=== PATIENT | male | born 1955 | race Caucasian/White ===

== ENCOUNTER 2021-11-14 13:11 | Emergency (ER) | payer MEDICARE ==
[2021-11-14] MEDS ORDERED: DEXAMETHASONE SOD PHOSPHATE 10 MG/ML 1 ML VIAL IM STA (13:57)
[2021-11-14] MEDS ORDERED: ORPHENADRINE 30 MG/ML 2 ML VIAL IM STA (13:57)
--- NOTE | 2021-11-14 14:04 | ED ---
Extremity Problem HPI - General Chief complaint: Extremity Problem,Nontraumatic Stated complaint: Body aches,hist of AFib Time Seen by Provider: 11/14/21 13:50 Source: patient, RN notes reviewed, old records reviewed Mode of arrival: ambulatory - History of Present Illness Initial comments: This is a 66-year-old male presents to the emergency room with complaints of neck pain radiating down both of his arms to his fingers and low back pain radiating down his right leg. Patient states he does have a history of this and has been seeing a chiropractor, last visit last week. He states just moved here from [place]. He does have a history also of atrial fibrillation but does not take blood thinner only takes metoprolol. Denies any chest pain or difficulty in breathing. No fevers, no nausea vomiting or diarrhea. No previous surgical history. -: days(s) (1) Severity scale (1-10): 7 Quality: constant Associated Symptoms: denies other symptoms - Related Data Previous Rx's Medication Instructions Recorded predniSONE 50 mg PO DAILY #5 tab 11/14/21 Allergies Allergy/AdvReac Type Severity Reaction Status Date / Time No Known Allergies Allergy Verified 11/14/21 13:32 Review of Systems ROS Statement: Those systems with pertinent positive or pertinent negative responses have been documented in the HPI. ROS Other: All systems not noted in ROS Statement are negative. Past Medical History Additional Past Medical History / Comment(s): atrial fib History of Any Multi-Drug Resistant Organisms: None Reported Additional Past Surgical History / Comment(s): cardiac ablation Past Psychological History: No Psychological Hx Reported Smoking Status: Never smoker Past Alcohol Use History: None Reported Past Drug Use History: None Reported General Exam Limitations: no limitations General appearance: alert, in no apparent distress Head exam: Present: atraumatic Eye exam: Present: normal appearance. Absent: scleral icterus, conjunctival injection, periorbital swelling, periorbital tenderness Neck exam: Present: normal inspection, tenderness (Bilateral trapezius), full ROM. Absent: meningismus, lymphadenopathy, thyromegaly Respiratory exam: Present: normal lung sounds bilaterally. Absent: respiratory distress, wheezes, rales, rhonchi, stridor, chest wall tenderness, accessory muscle use Cardiovascular Exam: Present: regular rate, normal rhythm GI/Abdominal exam: Present: soft Extremities exam: Present: normal capillary refill. Absent: tenderness, pedal edema, joint swelling, calf tenderness Back exam: Present: full ROM, paraspinal tenderness (LS spine). Absent: vertebral tenderness, rash noted Expanded Back exam: Positive Straight Leg Raise: Right Neurological exam: Present: alert, oriented X3, CN II-XII intact, normal gait Psychiatric exam: Present: normal affect, normal mood Skin exam: Present: warm, dry, normal color. Absent: cyanosis, diaphoretic, petechiae, pallor Course Vital Signs 11/14/21 11/14/21 13:28 16:01 Temperature 98 F 97.7 F Pulse Rate 80 74 Respiratory 16 18 Rate Blood Pressure 142/84 128/92 O2 Sat by Pulse 96 95 Oximetry Medical Decision Making - Medical Decision Making Patient presents with trapezius neck pain and tingling down both arms since waking up this morning. Also complaining of low back pain radiating down his right leg. Patient states he does have a history of chronic back problems and has been seeing a chiropractor. She denies any trauma. States he has had this back pain in the past, however today it is more severe. Patient has full range of motion. No evidence of trauma. Patient has a history of A. fib. EKG shows sinus rhythm with ventricular rate of 70. States he sees Dr. José in [place] and was put on metoprolol but it was decided not to put him on blood thinners. States he also had a recent stress test. EKG does show T-wave inversions in multiple leads. 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 X-ray of the LS spine shows no evidence of fracture. There is mild multilevel disc Degeneration changes throughout the spine. X-ray C-spine shows no fracture dislocation. Mild degenerative disc disease resulting in multilevel neural foraminal stenosis bilaterally. He denies any headaches, nausea vomiting diarrhea or fevers. No bowel or bladder incontinence. No fevers. No concerning red flags. He has full range of motion and is ambulatory with a steady gait. No focal neurological deficits. He was given Decadron and Norflex for pain relief. Patient's symptoms are consistent with cervical and lumbar radiculopathy. He was given a prescription for prednisone and directed to take it as prescribed along with Tylenol and [id number] topical pain relievers. He was advised not to take ibuprofen while taking prednisone as it may cause upset stomach. Strict return parameters were discussed instructed to return with any focal neurological deficits. He is agreeable to this plan of care. Vital Signs are stable. Case discussed with Dr. Sapp. - EKG Data EKG shows normal: sinus rhythm (Ventricular rate 70, CO interval 0.141, QRS 0.90, QTC 0.437; normal axis; no old to compare) Disposition Clinical Impression: Neck pain, Low back pain, Radiculopathy affecting upper extremity Disposition: HOME SELF-CARE Condition: Good Instructions (If sedation given, give patient instructions): Cervical Radiculopathy (ED), Back Pain (ED), Lower Back Exercises (ED), Neck Pain (ED) Additional Instructions: Start prednisone tomorrow and take as prescribed for the next 5 days along with Tylenol for pain relief. You can also use topical pain relievers like icy hot or bengay. Do not take Motrin or ibuprofen-type products while taking the prednisone as it m,ay upset your stomach. Once finished with the prednisone, you can take Tylenol and Motrin at the same time to help maintain pain relief. Follow-up a primary care doctor next week and return to the emergency room with any new or concerning symptoms. Prescriptions: predniSONE 50 mg PO DAILY #5 tab Is patient prescribed a controlled substance at d/c from ED?: No Referrals: None,Stated [Primary Care Provider] - 1-2 days Time of Disposition: 15:56
--- NOTE | 2021-11-14 15:16 | XR ---
EXAMINATION TYPE: XR cervical spine comp DATE OF EXAM: 11/14/2021 2:52 PM INDICATION: Patient age:Male; 66 years old; Reason for study: pain; PHH. COMPARISON: None TECHNIQUE: The cervical spine was imaged in 4 projections. Frontal, lateral, odontoid and bilateral o blique. FINDINGS: The osseous structures show normal alignment without evidence of an acute fracture. There are osteoph ytes noted throughout the cervical spine on the anterior and lateral aspects of the vertebral bodies. The intervertebral disk spaces are preserved. Pedicles are intact. Soft tissues are within normal limits. The odontoid appears intact. Bilateral neural foraminal stenosis noted bilaterally secondary to facet joint and uncovertebral joint arthropathy. IMPRESSION: 1. No fracture or dislocation. 2. Mild degenerative disc disease changes of the cervical spine resulting in multilevel neural forami nal stenosis bilaterally.
--- NOTE | 2021-11-14 15:17 | XR ---
EXAMINATION TYPE: XR lumbar spine 2 or 3V DATE OF EXAM: 11/14/2021 2:52 PM INDICATION: Patient age:Male; 66 years old; Reason for study: pain; COMPARISON: None TECHNIQUE: Frontal, lateral and coned in L5-S1 lateral views of the spine. FINDINGS: No evidence of any acute osseous pathology. No evidence of loss of vertebral body height i s seen. There is straightening of the alignment of the lumbar vertebral bodies. Mild scattered disc s pace narrowing. Multilevel marginal osteophyte formation throughout the visualized spine. There is fa cet joint arthropathy throughout the spine. Scattered at least mild neural foraminal stenosis. IMPRESSION: No evidence of fracture. Mild multilevel disc degeneration changes seen throughout the spine.
[2021-11-14 16:05] VITALS: BP 128/92; PULSE 74; RESP 18; TEMP 97.7
== END 2021-11-14 16:05 | disposition home or self-care (01) ==
LOC: EC 13:11
DX: M54.16 Radiculopathy, lumbar region (principal); M54.2 Cervicalgia; I48.91 Unspecified atrial fibrillation
CPT/HCPCS: 99283 ×2; 96372 ×2; 93005; 72050; 72100; J1100; J2360

== ENCOUNTER 2022-01-07 02:53 | Emergency (ER) | payer MEDICARE ==
[2022-01-07 02:58] VITALS: TEMP 97.3
[2022-01-07] MEDS ORDERED: SODIUM CHLORIDE 0.9% 1,000 ML IV STA (03:05)
[2022-01-07] MEDS ORDERED: DIGOXIN 250 MCG/ML 2 ML AMP IVP STA (03:06)
--- NOTE | 2022-01-07 03:08 | ED ---
Arrhythmia/Palpitations HPI - General Chief Complaint: Arrhythmia/Palpitations Stated Complaint: A-Fib Time Seen by Provider: 01/07/22 03:05 Source: patient, RN notes reviewed, old records reviewed Mode of arrival: wheelchair Limitations: no limitations - History of Present Illness Initial Comments: This is a 66-year-old male to the emergency department for evaluation. Patient Dese for evaluation of H a fibrillation with RVR palpitations, history of the same. Patient has had cardioversion in the past. Patient has maybe some mild chest pain currently. Lightheadedness and dizziness no significant shortness of breath heart has been significantly high. No change in medications he's felt a little off lately but overall generally feeling well. No nausea vomiting diarrhea or fevers MD Complaint: rapid heart beat, "heart racing", "skipped beats", palpitations, irregular heart beat, atrial fibrillation -: hour(s) Context: occurred during rest Arrhythmia History: atrial fibrillation Associated Symptoms: chest pain, shortness of breath, anxiety Treatments Prior to Arrival: other (0) - Related Data Previous Rx's Medication Instructions Recorded predniSONE 50 mg PO DAILY #5 tab 11/14/21 Allergies Allergy/AdvReac Type Severity Reaction Status Date / Time No Known Allergies Allergy Verified 01/07/22 02:55 Review of Systems ROS Statement: Those systems with pertinent positive or pertinent negative responses have been documented in the HPI. ROS Other: All systems not noted in ROS Statement are negative. Past Medical History Past Medical History: Atrial Fibrillation Additional Past Medical History / Comment(s): atrial fib, neck pain History of Any Multi-Drug Resistant Organisms: None Reported Past Surgical History: Cardiac Ablation, Orthopedic Surgery Additional Past Surgical History / Comment(s): cardiac ablation Past Psychological History: No Psychological Hx Reported Smoking Status: Never smoker Past Alcohol Use History: None Reported Past Drug Use History: None Reported General Exam Limitations: no limitations General appearance: alert, in no apparent distress, anxious Head exam: Present: atraumatic, normocephalic, normal inspection Eye exam: Present: normal appearance, PERRL, EOMI. Absent: scleral icterus, conjunctival injection, periorbital swelling ENT exam: Present: normal exam, mucous membranes moist Neck exam: Present: normal inspection. Absent: tenderness, meningismus, lymphadenopathy Respiratory exam: Present: normal lung sounds bilaterally. Absent: respiratory distress, wheezes, rales, rhonchi, stridor Cardiovascular Exam: Present: tachycardia, irregular rhythm, normal heart sounds. Absent: systolic murmur, diastolic murmur, rubs, gallop, clicks GI/Abdominal exam: Present: soft, normal bowel sounds. Absent: distended, tenderness, guarding, rebound, rigid Extremities exam: Present: normal inspection, full ROM, normal capillary refill. Absent: tenderness, pedal edema, joint swelling, calf tenderness Back exam: Present: normal inspection Neurological exam: Present: alert, oriented X3, CN II-XII intact Psychiatric exam: Present: normal affect, normal mood Skin exam: Present: warm, dry, intact, normal color. Absent: rash Course Vital Signs 01/07/22 01/07/22 01/07/22 02:55 03:02 03:22 Temperature 97.3 F L Pulse Rate 73 160 H 102 H Respiratory 18 Rate Blood Pressure 85/58 103/74 O2 Sat by Pulse 96 Oximetry 01/07/22 01/07/22 01/07/22 03:31 03:43 03:45 Temperature Pulse Rate 102 H 135 H Respiratory 16 Rate Blood Pressure 99/89 116/88 O2 Sat by Pulse 97 Oximetry 01/07/22 03:58 Temperature Pulse Rate 66 Respiratory Rate Blood Pressure O2 Sat by Pulse Oximetry - Reevaluation(s) Reevaluation #1: 01/07/22 04:14 Medical records reviewed Reevaluation #2: 01/07/22 04:14 patient symptoms improved heart rate is now normal sinus rhythm Reevaluation #3: 01/07/22 04:14 Patient informed results and questions answered EKG Findings - EKG Comments: EKG Findings:: EKG Shows A. fib with RVR 152 QRS 146.31 Medical Decision Making - Medical Decision Making 66-year-old male to the emergency department for evaluation he presents today nature fibrillation with RVR 160s. Patient was given loading dose of digoxin at half strength. Patient had complete covert in normal sinus rhythm in the 60s. Patient feels well and can be discharged home - Lab Data Result diagrams: 01/07/22 03:05 01/07/22 03:05 Lab Results 01/07/22 01/07/22 01/07/22 Range/Units 03:05 03:05 03:05 WBC 10.2 (3.8-10.6) k/uL RBC 4.62 (4.30-5.90) m/uL Hgb 15.7 (13.0-17.5) gm/dL Hct 42.5 (39.0-53.0) % MCV 91.9 (80.0-100.0) fL MCH 34.1 (25.0-35.0) pg MCHC 37.1 H (31.0-37.0) g/dL RDW 14.1 (11.5-15.5) % Plt Count 286 (150-450) k/uL MPV 7.4 Neutrophils % 53 % Lymphocytes % 35 % Monocytes % 6 % Eosinophils % 2 % Basophils % 1 % Neutrophils # 5.4 (1.3-7.7) k/uL Lymphocytes # 3.6 (1.0-4.8) k/uL Monocytes # 0.7 (0-1.0) k/uL Eosinophils # 0.2 (0-0.7) k/uL Basophils # 0.1 (0-0.2) k/uL PT 9.6 (9.0-12.0) sec INR 0.9 (<1.2) APTT 22.7 (22.0-30.0) sec Sodium 136 L (137-145) mmol/L Potassium 4.4 (3.5-5.1) mmol/L Chloride 106 (98-107) mmol/L Carbon Dioxide 23 (22-30) mmol/L Anion Gap 7 mmol/L BUN 24 H (9-20) mg/dL Creatinine 1.25 (0.66-1.25) mg/dL Est GFR (CKD-EPI)AfAm 70 (>60 ml/min/1.73 sqM) Est GFR (CKD-EPI)NonAf 61 (>60 ml/min/1.73 sqM) Glucose 140 H (74-99) mg/dL Calcium 9.2 (8.4-10.2) mg/dL Magnesium 2.0 (1.6-2.3) mg/dL Total Bilirubin 0.5 (0.2-1.3) mg/dL AST 34 (17-59) U/L ALT 31 (4-49) U/L Alkaline Phosphatase 88 (38-126) U/L Troponin I (0.000-0.034) ng/mL Total Protein 6.8 (6.3-8.2) g/dL Albumin 4.3 (3.5-5.0) g/dL TSH 6.820 H (0.465-4.680) mIU/L Digoxin <0.4 ng/mL 01/07/22 Range/Units 03:05 WBC (3.8-10.6) k/uL RBC (4.30-5.90) m/uL Hgb (13.0-17.5) gm/dL Hct (39.0-53.0) % MCV (80.0-100.0) fL MCH (25.0-35.0) pg MCHC (31.0-37.0) g/dL RDW (11.5-15.5) % Plt Count (150-450) k/uL MPV Neutrophils % % Lymphocytes % % Monocytes % % Eosinophils % % Basophils % % Neutrophils # (1.3-7.7) k/uL Lymphocytes # (1.0-4.8) k/uL Monocytes # (0-1.0) k/uL Eosinophils # (0-0.7) k/uL Basophils # (0-0.2) k/uL PT (9.0-12.0) sec INR (<1.2) APTT (22.0-30.0) sec Sodium (137-145) mmol/L Potassium (3.5-5.1) mmol/L Chloride (98-107) mmol/L Carbon Dioxide (22-30) mmol/L Anion Gap mmol/L BUN (9-20) mg/dL Creatinine (0.66-1.25) mg/dL Est GFR (CKD-EPI)AfAm (>60 ml/min/1.73 sqM) Est GFR (CKD-EPI)NonAf (>60 ml/min/1.73 sqM) Glucose (74-99) mg/dL Calcium (8.4-10.2) mg/dL Magnesium (1.6-2.3) mg/dL Total Bilirubin (0.2-1.3) mg/dL AST (17-59) U/L ALT (4-49) U/L Alkaline Phosphatase (38-126) U/L Troponin I 0.034 (0.000-0.034) ng/mL Total Protein (6.3-8.2) g/dL Albumin (3.5-5.0) g/dL TSH (0.465-4.680) mIU/L Digoxin ng/mL Disposition Clinical Impression: Atrial fibrillation, Palpitations, Atrial fibrillation with RVR Disposition: HOME SELF-CARE Condition: Good Instructions (If sedation given, give patient instructions): A-fib (Atrial Fibrillation) (ED), Digoxin (By injection) Is patient prescribed a controlled substance at d/c from ED?: No Referrals: Christos Darby DO [Primary Care Provider] - 1-2 days Time of Disposition: 04:10
[2022-01-07 03:18] LABS: Basophils # (A) 0.1 k/uL (0-0.2); Basophils % (A) 1 %; Eosinophils # (A) 0.2 k/uL (0-0.7); Eosinophils % (A) 2 %; HCT 42.5 % (39.0-53.0); HGB 15.7 gm/dL (13.0-17.5); Lymphocytes # (A) 3.6 k/uL (1.0-4.8); Lymphocytes % (A) 35 %; MCH 34.1 pg (25.0-35.0); MCHC 37.1 g/dL (31.0-37.0); MCV 91.9 fL (80.0-100.0); Mean Platelet Volume 7.4; Monocytes # (A) 0.7 k/uL (0-1.0); Monocytes % (A) 6 %; Neutrophils # (A) 5.4 k/uL (1.3-7.7); Neutrophils % (A) 53 %; Platelet Count 286 k/uL (150-450); RBC 4.62 m/uL (4.30-5.90); RDW 14.1 % (11.5-15.5); WBC 10.2 k/uL (3.8-10.6)
[2022-01-07 03:27] LABS: INR 0.9 (<1.2); Partial Thromboplastin Time 22.7 sec (22.0-30.0); Prothrombin Time 9.6 sec (9.0-12.0)
[2022-01-07 03:40] LABS: ALT 31 U/L (4-49); AST 34 U/L (17-59); African American GFR (CKD) 70 (>60 ml/min/1.73 sqM); Albumin 4.3 g/dL (3.5-5.0); Alkaline Phosphatase 88 U/L (38-126); Anion Gap 7 mmol/L; Blood Urea Nitrogen 24 mg/dL (9-20); Calcium 9.2 mg/dL (8.4-10.2); Carbon Dioxide 23 mmol/L (22-30); Chloride 106 mmol/L (98-107); Digoxin <0.4 ng/mL; Glucose 140 mg/dL (74-99); Non-African American GFR(CKD) 61 (>60 ml/min/1.73 sqM); Potassium 4.4 mmol/L (3.5-5.1); Sodium 136 mmol/L (137-145); Total Bilirubin 0.5 mg/dL (0.2-1.3); Total Protein 6.8 g/dL (6.3-8.2)
[2022-01-07 04:14] VITALS: BP 107/73; PULSE 68; RESP 18
== END 2022-01-07 04:26 | disposition home or self-care (01) ==
LOC: EC 02:53
DX: I48.20 Chronic atrial fibrillation, unspecified (principal)
CPT/HCPCS: 99285 ×2; 96374 ×2; 96361 ×2; 36415; 93005; 80053; 80162; 83735; 84443; 84484; 85025; 85610; 85730; J1160

== ENCOUNTER 2022-04-18 11:29 | Observation (INO) | payer MEDICARE ==
[2022-04-18] MEDS ORDERED: ASPIRIN 81 MG PO STA (11:51)
[2022-04-18] MEDS ORDERED: SODIUM CHLORIDE 0.9% 1,000 ML IV STA (11:51)
[2022-04-18] MEDS ORDERED: DILTIAZEM 5 MG/ML 5 ML VIAL IVP STA (11:53)
[2022-04-18] MEDS ORDERED: HEPARIN SODIUM 1,000 UN/ML (10ML VL) IV PRN (11:54)
[2022-04-18] MEDS ORDERED: HEPARIN SODIUM 1,000 UN/ML (10ML VL) IV ONE (11:54)
[2022-04-18 12:14] LABS: INR 0.9 (<1.2); Partial Thromboplastin Time 22.1 sec (22.0-30.0); Prothrombin Time 9.9 sec (9.0-12.0)
[2022-04-18 12:21] LABS: ALT 28 U/L (4-49); African American GFR (CKD) >90 (>60 ml/min/1.73 sqM); Albumin 4.4 g/dL (3.5-5.0); Anion Gap 8 mmol/L; Blood Urea Nitrogen 18 mg/dL (9-20); Calcium 9.7 mg/dL (8.4-10.2); Carbon Dioxide 22 mmol/L (22-30); Chloride 106 mmol/L (98-107); Glucose 162 mg/dL (74-99); Non-African American GFR(CKD) 85 (>60 ml/min/1.73 sqM); Sodium 136 mmol/L (137-145); Total Bilirubin 0.9 mg/dL (0.2-1.3); Total Protein 7.2 g/dL (6.3-8.2)
[2022-04-18 12:25] LABS: AST 36 U/L (17-59); Alkaline Phosphatase 46 U/L (38-126); Magnesium 2.2 mg/dL (1.6-2.3); Potassium 4.6 mmol/L (3.5-5.1)
[2022-04-18] MEDS ORDERED: DILTIAZEM 125 MG in SODIUM CHLORIDE 0.9% 100 ML IV SCH (12:30)
--- NOTE | 2022-04-18 12:34 | XR ---
EXAMINATION TYPE: XR chest 2V DATE OF EXAM: 04/18/2022 COMPARISON: NONE HISTORY: Atrial fibrillation. TECHNIQUE: Frontal and lateral views of the chest are obtained. FINDINGS: There is no focal air space opacity, pleural effusion, or pneumothorax seen. The cardiac silhouette size is within normal limits. The osseous structures are intact. IMPRESSION: No acute cardiopulmonary process.
[2022-04-18 12:36] LABS: Basophils % (A) 0 %; Eosinophils # (A) 0.2 k/uL (0-0.7); Eosinophils % (A) 3 %; HCT 46.8 % (39.0-53.0); HGB 16.2 gm/dL (13.0-17.5); Lymphocytes # (A) 1.7 k/uL (1.0-4.8); Lymphocytes % (A) 24 %; MCH 32.9 pg (25.0-35.0); MCHC 34.7 g/dL (31.0-37.0); MCV 94.9 fL (80.0-100.0); Mean Platelet Volume 7.6; Monocytes # (A) 0.4 k/uL (0-1.0); Monocytes % (A) 6 %; Neutrophils # (A) 4.6 k/uL (1.3-7.7); Neutrophils % (A) 66 %; Platelet Count 242 k/uL (150-450); RBC 4.93 m/uL (4.30-5.90); RDW 12.8 % (11.5-15.5)
[2022-04-18] MEDS: HEPARIN SOD,PORK IN 0.45% NACL 25,000 UNIT in 0.45% NACL 1 250ML.BAG IV SCH (12:44)
[2022-04-18] MEDS ORDERED: FLECAINIDE 50 MG TAB PO PRN (13:49)
[2022-04-18] MEDS ORDERED: NALOXONE 0.4 MG/ML 1 ML VIAL IV PRN (13:57)
--- NOTE | 2022-04-18 14:21 | ED ---
General Adult HPI - General Chief complaint: Chest Pain Stated complaint: chest pain Time Seen by Provider: 04/18/22 11:44 Source: patient, RN notes reviewed, old records reviewed Mode of arrival: wheelchair - History of Present Illness Initial comments: Patient is a 66-year-old male who presents emergency Department complaining of chest palpitations, chest discomfort. Denies any shortness of breath, cough, fevers, chills. Denies any nausea, vomiting, abdominal pain. States he had sudden onset of this at approximately 10 AM this morning. Denies any headaches, weakness. does have a history of atrial fibrillation status post 2 ablations. Is not on blood thinners. Believes he is in atrial fibrillation again.Patient states that he feels like he has chest discomfort that was substernal in nature. Typical for his A. fib when it breaks through. Patient states that he is no longer on anticoagulation. States he has chronic T-wave inversions an abnormal EKG prior to me evaluating EKG, however patient does have ST segment depressions and T-wave inversions on it. When compared with prior EKGs from November and December of last year, this does appear unchanged and chronic findings. He believes he is in A. fib. States this is similar to when he broke a previously. Is on flecainide and metoprolol at baseline. Presents for further evaluation at this time. - Related Data Home Medications Medication Instructions Recorded Confirmed Aspirin 325 mg PO HS 04/18/22 04/18/22 Flecainide Acetate 50 mg PO DAILY PRN 04/18/22 04/18/22 Metoprolol Succinate (ER) [Toprol 25 mg PO DAILY 04/18/22 04/18/22 Xl] Metoprolol Succinate (ER) [Toprol 50 mg PO DAILY 04/18/22 04/18/22 Xl] Simvastatin [Zocor] 20 mg PO HS 04/18/22 04/18/22 Allergies Allergy/AdvReac Type Severity Reaction Status Date / Time No Known Allergies Allergy Verified 04/18/22 13:39 Review of Systems ROS Statement: Those systems with pertinent positive or pertinent negative responses have been documented in the HPI. Review of Systems: CONST: Denies fever EYES: Denies blurry vision ENT: Denies nasal congestion C/V: Endorses palpitations, chest discomfort RESP: Denies shortness of breath GI: Denies abdominal pain : Denies dysuria SKIN: Denies rash. MSK: Denies joint pain. NEURO: Denies headache ROS Other: All systems not noted in ROS Statement are negative. Past Medical History Past Medical History: Atrial Fibrillation Additional Past Medical History / Comment(s): atrial fib, neck pain History of Any Multi-Drug Resistant Organisms: None Reported Past Surgical History: Cardiac Ablation, Orthopedic Surgery Additional Past Surgical History / Comment(s): cardiac ablation Past Psychological History: No Psychological Hx Reported Smoking Status: Never smoker Past Alcohol Use History: None Reported Past Drug Use History: None Reported General Exam - General Exam Comments Initial Comments: General: Appears in mild distress. HEAD: Normal with no signs of head trauma. EYES: PERRLA, EOMI, conjunctiva normal, no discharge. ENT: Hearing grossly intact, normal oropharynx. RESPIRATORY: Clear breath sounds bilaterally. No wheezes, rales, or rhonchi. C/V: Irregular rate and rhythm. S1 and S2 auscultated. Peripheral pulses 2+ and intact throughout. ABD: Abd is soft, nontender, nondistended EXT: Normal range of motion, no obvious deformity SKIN: No rashes or lesions observed on exposed skin. NEURO: Alert and oriented 4. Course Vital Signs 04/18/22 04/18/22 04/18/22 11:33 12:06 13:00 Temperature 97.3 F L Pulse Rate 150 H 135 H 141 H Respiratory 20 18 22 Rate Blood Pressure 107/58 124/78 109/84 O2 Sat by Pulse 100 94 L 95 Oximetry 04/18/22 04/18/22 04/18/22 13:10 13:20 13:30 Temperature Pulse Rate 128 H 142 H 137 H Respiratory 13 13 15 Rate Blood Pressure 109/84 115/87 O2 Sat by Pulse 96 95 96 Oximetry 04/18/22 04/18/22 04/18/22 13:40 13:50 14:00 Temperature Pulse Rate 135 H 134 H 152 H Respiratory 17 18 15 Rate Blood Pressure 130/80 112/81 112/81 O2 Sat by Pulse 97 94 L 95 Oximetry Medical Decision Making - Medical Decision Making Was pt. sent in by a medical professional or institution (, PA, [facility], urgent care, hospital, or custodial...) When possible be specific @ -No Did you speak to anyone other than the patient for history (EMS, parent, family, police, friend...)? What history was obtained from this source @ -No Did you review nursing and triage notes (agree or disagree)? Why? @ -I reviewed and agree with nursing and triage notes, except patient's complaining more palpitations any chest discomfort. Less of a chest pain. Believes he is in A. fib. Were old charts reviewed (outside hosp., previous admission, EMS record, old EKG, old radiological studies, urgent care reports/EKG's, custodial records)? Report findings @ -Yes, old charts and EKGs were reviewed from November and December 2021 Differential Diagnosis (chest pain, altered mental status, abdominal pain women, abdominal pain men, vaginal bleeding, weakness, fever, dyspnea, syncope, headache, dizziness, GI bleed, back pain, seizure, CVA, palpatations, mental health, musculoskeletal)? @ -Differential Chest Pain: Stable Angina, Unstable Angina, STEMI, NSTEMI Aortic Dissection, Pneumothorax, M usculoskeletal, Esophageal Spasm GERD, Cholecystitis, Pancreatitis, Zoster, this is not meant to be an all-inclusive list. EKG interpreted by me (3pts min.). @ -As above X-rays interpreted by me (1pt min.). @ -Chest x-ray reveals no acute cardiopulmonary process. CT interpreted by me (1pt min.). @ -None done U/S interpreted by me (1pt. min.). @ -None done What testing was considered but not performed or refused? (CT, X-rays, U/S, labs)? Why? @ -None What meds were considered but not given or refused? Why? @ -None Did you discuss the management of the patient with other professionals (professionals i.e. DrMacario, PA, [employer], lab, RT, psych nurse, social work specialist, cement grinding mill operator, teacher, field crop technical officer, caseworker)? Give summary @ -Yes, I discussed with accepting physician Dr. Crews who was in agreement with the plan as well as cardiology Dr. Willingham regarding the EKG changes who agreed to evaluate the patient was in agreement with the current plan. Was smoking cessation discussed for >3mins.? @ -No Was critical care preformed (if so, how long)? @ -Yes, 35 minutes. Were there social determinants of health that impacted care today? How? (Homelessness, low income, unemployed, alcoholism, drug addiction, transportation, low edu. Level, literacy, decrease access to med. care, detention, rehab)? @ -No Was there de-escalation of care discussed even if they declined (Discuss DNR or withdrawal of care, Hospice)? DNR status @ -No What co-morbidities impacted this encounter? (DM, HTN, Smoking, COPD, CAD, Cancer, CVA, ARF, Chemo, Hep., AIDS, mental health diagnosis, sleep apnea, morbid obesity)? @ -History of A. fib with RVR Was patient admitted / discharged? Hospital course, mention meds given and route, prescriptions, significant lab abnormalities, going to OR and other pertinent info. @ -Based on patient's presentation and physical exam, I'm concerned for acute onset of atrial fibrillation with RVR with a history of the ablated A. fib in the past. I was notified the patient and his EKG findings which were concerning, however they appear chronic when compared with prior EKGs. He has diffuse ST segment depressions and T-wave inversions in the lateral precordial leads as well as the II of which are seen on prior EKGs from November and December 2021. She does appear to be in A. fib with RVR currently, patient was started on a Cardizem drip after bolus as well as a heparin drip. Patient was in agreement this plan. He was given 324 millions of aspirin. Cardiopulmonary labs will be obtained. Patient was in agreement with this plan. He is hemodynamically stable at this time in A. fib with RVR. Chest x-ray unremarkable. EKG findings as above. Chronic findings in A. fib with RVR. Laboratory studies were remarkable for an undetectable troponin. BNP within normal limits. Remainder the labs are within acceptable limits. After the patient. He is feeling somewhat improved at this time. Heart rates are more typically at this time in the low 100s. We will increase the Cardizem drip. Remains hemodynamically stable. Requires admission to the hospital. I consulted cardiology and spoke with Dr. Willingham who agreed to evaluate the patient, notified him of the EKG findings which appear to be chronic. I spoke with the accepting physician, Dr. Crews who agreed to the admission. Patient was admitted to cardiac stepdown. Undiagnosed new problem with uncertain prognosis? @ -No Drug Therapy requiring intensive monitoring for toxicity (Heparin, Nitro, Insulin, Cardizem)? @ -Yes, heparin and Cardizem. Were any procedures done? @ -No Diagnosis/symptom? @ -A. fib with RVR Acute, or Chronic, or Acute on Chronic? @ -Acute on chronic Uncomplicated (without systemic symptoms) or Complicated (systemic symptoms)? @ -Compensated Side effects of treatment? @ -No Exacerbation, Progression, or Severe Exacerbation? @ -No Poses a threat to life or bodily function? How? (Chest pain, [place], [place], pneumonia, PE, COPD, DKA, ARF, appy, cholecystitis, CVA, Diverticulitis, Homicidal, Suicidal, threat to staff... and all critical care pts) @ -Yes, if untreated can result in significant morbidity and mortality. - Lab Data Result diagrams: 04/18/22 11:51 04/18/22 11:51 Lab Results 04/18/22 04/18/22 04/18/22 Range/Units 11:51 11:51 11:51 WBC 7.0 (3.8-10.6) k/uL RBC 4.93 (4.30-5.90) m/uL Hgb 16.2 (13.0-17.5) gm/dL Hct 46.8 (39.0-53.0) % MCV 94.9 (80.0-100.0) fL MCH 32.9 (25.0-35.0) pg MCHC 34.7 (31.0-37.0) g/dL RDW 12.8 (11.5-15.5) % Plt Count 242 (150-450) k/uL MPV 7.6 Neutrophils % 66 % Lymphocytes % 24 % Monocytes % 6 % Eosinophils % 3 % Basophils % 0 % Neutrophils # 4.6 (1.3-7.7) k/uL Lymphocytes # 1.7 (1.0-4.8) k/uL Monocytes # 0.4 (0-1.0) k/uL Eosinophils # 0.2 (0-0.7) k/uL Basophils # 0.0 (0-0.2) k/uL PT 9.9 (9.0-12.0) sec INR 0.9 (<1.2) APTT 22.1 (22.0-30.0) sec Sodium 136 L (137-145) mmol/L Potassium 4.6 (3.5-5.1) mmol/L Chloride 106 (98-107) mmol/L Carbon Dioxide 22 (22-30) mmol/L Anion Gap 8 mmol/L BUN 18 (9-20) mg/dL Creatinine 0.95 (0.66-1.25) mg/dL Est GFR (CKD-EPI)AfAm >90 (>60 ml/min/1.73 sqM) Est GFR (CKD-EPI)NonAf 85 (>60 ml/min/1.73 sqM) Glucose 162 H (74-99) mg/dL Calcium 9.7 (8.4-10.2) mg/dL Magnesium 2.2 (1.6-2.3) mg/dL Total Bilirubin 0.9 (0.2-1.3) mg/dL AST 36 (17-59) U/L ALT 28 (4-49) U/L Alkaline Phosphatase 46 (38-126) U/L Troponin I (0.000-0.034) ng/mL NT-Pro-B Natriuret Pep pg/mL Total Protein 7.2 (6.3-8.2) g/dL Albumin 4.4 (3.5-5.0) g/dL 04/18/22 04/18/22 Range/Units 11:51 11:51 WBC (3.8-10.6) k/uL RBC (4.30-5.90) m/uL Hgb (13.0-17.5) gm/dL Hct (39.0-53.0) % MCV (80.0-100.0) fL MCH (25.0-35.0) pg MCHC (31.0-37.0) g/dL RDW (11.5-15.5) % Plt Count (150-450) k/uL MPV Neutrophils % % Lymphocytes % % Monocytes % % Eosinophils % % Basophils % % Neutrophils # (1.3-7.7) k/uL Lymphocytes # (1.0-4.8) k/uL Monocytes # (0-1.0) k/uL Eosinophils # (0-0.7) k/uL Basophils # (0-0.2) k/uL PT (9.0-12.0) sec INR (<1.2) APTT (22.0-30.0) sec Sodium (137-145) mmol/L Potassium (3.5-5.1) mmol/L Chloride (98-107) mmol/L Carbon Dioxide (22-30) mmol/L Anion Gap mmol/L BUN (9-20) mg/dL Creatinine (0.66-1.25) mg/dL Est GFR (CKD-EPI)AfAm (>60 ml/min/1.73 sqM) Est GFR (CKD-EPI)NonAf (>60 ml/min/1.73 sqM) Glucose (74-99) mg/dL Calcium (8.4-10.2) mg/dL Magnesium (1.6-2.3) mg/dL Total Bilirubin (0.2-1.3) mg/dL AST (17-59) U/L ALT (4-49) U/L Alkaline Phosphatase (38-126) U/L Troponin I <0.012 (0.000-0.034) ng/mL NT-Pro-B Natriuret Pep 138 pg/mL Total Protein (6.3-8.2) g/dL Albumin (3.5-5.0) g/dL - EKG Data -: EKG Interpreted by Me EKG Comments: 12-lead Electrocardiogram Interpretation Note EKG was reviewed and interpreted by myself. 12-lead ECG performed at 1139 is interpreted by me as revealing A. fib with RVR at a rate of 148 beats per minute. Normal axis. QRS is 90 ms, QTc is 390 ms.. There are chronic T wave inversions and ST segment depressions in the precordial leads V2 through V6 as well as II. These are all chronic seen on EKGs from November 2021 and December 2021.. R wave progression across the precordium was satisfactory. By my interpretation this EKG is non-diagnostic for acute ischemia. 12-lead Electrocardiogram Interpretation Note EKG was reviewed and interpreted by myself. 12-lead ECG performed at 1337 is interpreted by me as revealing A. fib with RVR at a rate of 108 beats per minute. [place] is normal. QRS duration is 89 ms, QTc is 410 ms.. Chronic T wave inversions and ST segment depressions in the lateral precordial leads, as well as II once again demonstrated. Heart rate is improved from earlier.. R wave progression across the precordium was satisfactory. By my interpretation this EKG is non-diagnostic for acute ischemia. Chronic T wave inversions and ST segment depressions are seen and are unchanged from prior EKGs from November and December 2021. Critical Care Time Critical Care Time: Yes Total Critical Care Time: 35 Critical Care Time: Upon my evaluation, this patient had a high probability of imminent or life- threatening deterioration due to A. fib with RVR, heparin initiation, Cardizem i nitiation, which required my direct attention, intervention, and personal management. I have personally provided 35 minutes of critical care time exclusive of time spent on separately billable procedures. Time includes review of laboratory data, radiology results, discussion with consultants, and monitoring for potential decompensation. Interventions were performed as documented in my note. Disposition Clinical Impression: Atrial fibrillation with RVR Disposition: ADMITTED IP TO THIS HOSP Condition: Serious Is patient prescribed a controlled substance at d/c from ED?: No Time of Disposition: 13:45
[2022-04-18] MEDS: DILTIAZEM 125 MG in SODIUM CHLORIDE 0.9% 100 ML IV SCH (14:37)
--- NOTE | 2022-04-18 14:39 | P.CRDCN ---
History of Present Illness Consult date: 04/18/22 History of present illness: HISTORY OF PRESENT ILLNESS: This is a 66-year-old male with a past medical history significant for paroxysmal atrial fibrillation with previous ablations 2, most recently in 2020 performed in [place]. Patient follows with Dr. García in [place]. We have been asked to see the patient in consultation for atrial fibrillation. Patient examined at the bedside. Patient reports she started having palpitations this morning around 10 AM. He is prescribed flecainide on a as needed basis. He states he took a dose of his flecainide this morning but his palpitations persisted so he presented to the emergency room for further evaluation. He currently denies chest pain or pressure. He denies shortness of breath. The patient states he saw his patient service rep last week and his metoprolol succinate was increased to 75 mg daily. Patient reports he has had a stress test in the past which have been negative to his knowledge. He is unsure if he has had a cardiac catheterization in the past but believes he has an did not think he had any blockages. He reports minimal caffeine use. He denies any alcohol use. He is a nonsmoker. He denies a history of hypertension or diabetes. * EKG reveals sinus mechanism with bursts of atrial fibrillation. On bedside telemetry, patient will have a few sinus beats then bursts of afib, then a few sinus beats. * Chest xray negative for acute process * Laboratory data: WBC 7.0. Hemoglobin 16.2. Platelet count 242. Sodium 136. Potassium 4.6. BUN 18. Creatinine 0.95. Troponin negative 1. ProBNP 138. * Current home cardiac medications include simvastatin 20 mg at night, aspirin 325 mg at night, and metoprolol succinate 75 mg daily REVIEW OF SYSTEMS: At the time of my exam: CONSTITUTIONAL: Denies fever or chills. HEENT: Denies blurred vision, vision changes, or eye pain. Denies hemoptysis CARDIOVASCULAR: Denies chest pain. Denies orthopnea. Denies PND. Denies palpitations RESPIRATORY: Denies shortness of breath. GASTROINTESTINAL: Denies abdominal pain. Denies nausea or vomiting. HEMATOLOGIC: Denies bleeding disorders. GENITOURINARY: Denies any blood in urine. SKIN: Denies pruitis. Denies rash. PHYSICAL EXAM: VITAL SIGNS: Reviewed. GENERAL: Well-developed in no acute distress. HEENT: Head is normocephalic. Pupils are equal, round. Sclerae anicteric. Mucous membranes of the mouth are moist. Neck supple. No JVD or thyromegaly LUNGS: Respirations even and unlabored. Lungs essentially clear to auscultation bilaterally. HEART: Tachycardiac. Irregular rate and rhythm. S1 and S2 heard. ABDOMEN: Soft. Nondistended. Nontender. EXTREMITIES: Normal range of motion. No clubbing or cyanosis. Peripheral pulses intact. No lower extremity edema NEUROLOGIC: Awake and alert. Oriented x 3. ASSESSMENT: Palpitations Paroxysmal atrial fibrillation with RVR History of ablation 2, most recently in 2020 in [place] Hyperlipidemia PLAN: Patient states he had an echocardiogram performed last week at his primary cardiology office. We'll attempt to get records. Continue IV heparin Increase metoprolol succinate to 50 mg twice a day Continue IV Cardizem. Increase dose to 10 mg an hour Begin flecainide 50 mg every 12 hours scheduled Check TSH Further recommendations pending patient course Nurse practitioner note has been reviewed by physician. Signing provider agrees with the documented findings, assessment, and plan of care. Past Medical History Past Medical History: Atrial Fibrillation Additional Past Medical History / Comment(s): atrial fib, neck pain History of Any Multi-Drug Resistant Organisms: None Reported Past Surgical History: Cardiac Ablation, Orthopedic Surgery Additional Past Surgical History / Comment(s): cardiac ablation Past Psychological History: No Psychological Hx Reported Smoking Status: Never smoker Past Alcohol Use History: None Reported Past Drug Use History: None Reported Medications and Allergies Home Medications Medication Instructions Recorded Confirmed Type Aspirin 325 mg PO HS 04/18/22 04/18/22 History Flecainide Acetate 50 mg PO DAILY PRN 04/18/22 04/18/22 History Metoprolol Succinate (ER) [Toprol 25 mg PO DAILY 04/18/22 04/18/22 History Xl] Metoprolol Succinate (ER) [Toprol 50 mg PO DAILY 04/18/22 04/18/22 History Xl] Simvastatin [Zocor] 20 mg PO HS 04/18/22 04/18/22 History Allergies Allergy/AdvReac Type Severity Reaction Status Date / Time No Known Allergies Allergy Verified 04/18/22 13:39 Physical Exam Vitals: Vital Signs Temp Pulse Resp BP Pulse Ox 04/18/22 14:00 152 H 15 112/81 95 04/18/22 13:50 134 H 18 112/81 94 L 04/18/22 13:40 135 H 17 130/80 97 04/18/22 13:30 137 H 15 115/87 96 04/18/22 13:20 142 H 13 95 04/18/22 13:10 128 H 13 109/84 96 04/18/22 13:00 141 H 22 109/84 95 04/18/22 12:06 135 H 18 124/78 94 L 04/18/22 11:33 97.3 F L 150 H 20 107/58 100 Intake and Output 04/17/22 04/18/22 04/18/22 22:59 06:59 14:59 Intake Total 7.083 Balance 7.083 Intake: Intake, IV Titration 7.083 Amount Diltiazem 125 mg In 7.083 Sodium Chloride 0.9% 100 ml @ Per Protocol IV .Q0M [facility] Rx#:[id number] Other: Weight 95.254 kg Results 04/18/22 11:51 04/18/22 11:51 Cardiac Enzymes 04/18/22 04/18/22 Range/Units 11:51 11:51 AST 36 (17-59) U/L Troponin I <0.012 (0.000-0.034) ng/mL Coagulation 04/18/22 Range/Units 11:51 PT 9.9 (9.0-12.0) sec APTT 22.1 (22.0-30.0) sec CBC 04/18/22 Range/Units 11:51 WBC 7.0 (3.8-10.6) k/uL RBC 4.93 (4.30-5.90) m/uL Hgb 16.2 (13.0-17.5) gm/dL Hct 46.8 (39.0-53.0) % Plt Count 242 (150-450) k/uL Comprehensive Metabolic Panel 04/18/22 Range/Units 11:51 Sodium 136 L (137-145) mmol/L Potassium 4.6 (3.5-5.1) mmol/L Chloride 106 (98-107) mmol/L Carbon Dioxide 22 (22-30) mmol/L BUN 18 (9-20) mg/dL Creatinine 0.95 (0.66-1.25) mg/dL Glucose 162 H (74-99) mg/dL Calcium 9.7 (8.4-10.2) mg/dL AST 36 (17-59) U/L ALT 28 (4-49) U/L Alkaline Phosphatase 46 (38-126) U/L Total Protein 7.2 (6.3-8.2) g/dL Albumin 4.4 (3.5-5.0) g/dL Current Medications Generic Name Dose Route Start Last Admin Trade Name Freq PRN Reason Stop Dose Admin Atorvastatin Calcium 10 mg 04/18/22 21:00 Atorvastatin 10 Mg Tab PO HS HUMPHREY Flecainide Acetate 50 mg 04/18/22 13:49 Flecainide 50 Mg Tab PO DAILY PRN Chest Pain Heparin Sodium (Porcine) 0 unit 04/18/22 11:54 Heparin Sodium 1,000 Un/Ml (10ml Vl) IV PER PROTOCOL PRN Low PTT Protocol Heparin Sodium/Sodium Chloride 250 mls @ 10.001 mls/hr 04/18/22 12:00 04/18/22 12:44 25,000 unit/ Sodium Chloride IV 10.499 units/kg/hr .Q24H HUMPHREY 10.001 mls/hr Administration Protocol 10.499 UNITS/KG/HR Diltiazem HCl 125 mg/ Sodium 125 mls @ 10 mls/hr 04/18/22 14:30 Chloride IV .[id number] HUMPHREY 10 MG/HR Metoprolol Succinate 50 mg 04/18/22 21:00 Metoprolol Succinate (Er) 50 Mg Tab.Er.24h PO BID HUMPHREY Naloxone HCl 0.2 mg 04/18/22 13:57 Naloxone 0.4 Mg/Ml 1 Ml Vial IV Q2M PRN Opioid Reversal Intake and Output 04/17/22 04/18/22 04/18/22 22:59 06:59 14:59 Intake Total 7.083 Balance 7.083 Intake: Intake, IV Titration 7.083 Amount Diltiazem 125 mg In 7.083 Sodium Chloride 0.9% 100 ml @ Per Protocol IV .Q0M [facility] Rx#:[id number] Other: Weight 95.254 kg Patient Weight 04/19/22 06:59 Weight 95.254 kg 04/18/22 11:51 04/18/22 11:51
--- NOTE | 2022-04-18 15:26 | P.HPIM ---
History of Present Illness H&P Date: 04/18/22 History of Presenting Illness: Patient is a very pleasant 66-year-old male with a past medical history of paroxysmal atrial fibrillation status post ablation 2, hypertension, and hyperlipidemia. Patient is not currently on anticoagulant. He is currently new to this area as he recently moved up to [place] from [place]. Patient states that he did make an appointment with a atomic fuel assembler Dr. José in [employer] who recently increased his metoprolol to 75 mg daily due to breakthrough episodes of atrial fibrillation. However, patient reports over the past few days he has had recurrent episodes of atrial fibrillation with RVR. Patient reports he can feel the palpitations in his throat when this occurs. Patient states this morning around 10 [address] while driving he felt his heart go into atrial fibrillation with RVR. Patient reports he was on his way to a doctor's appointment and immediately pulled over and took his flecainide hoping that would convert him back into normal sinus rhythm. Patient states he then called the office but was instructed that he needed to go to the emergency department for evaluation. Patient reports experiencing a mild chest pressure with these palpitations but denies having any headache, lightheadedness, dizziness, diaphoresis, shortness of breath, nausea, vomiting, or experiencing any numbness/tingling/weakness in his extremities. Upon arrival to the emergency department patient was found to be in A. fib RVR with ventricular rate 150s to 160s with a stable blood pressure of 107/58 and SpO2 100% on room air. An EKG was completed showing atrial fibrillation with a rapid ventricular rate of 148 bpm with T-wave inversion in leads 1, 2, aVL, aVF, and V2 through V6 and ST depression in leads II and V3 through V6 with the exception of converting back into atrial fibrillation and new onset T-wave inversion in V2 and aVF EKG is unchanged when compared to EKG completed 11/14/21 showing normal sinus rhythm 70 bpm with T-wave inversion in leads 1, 2, aVL, and V3 through V6 with ST depression in leads 2 and V3 through V6. Repeat EKG completed at 1:37 PM showing atrial fibrillation with RVR at 108 bpm with T-wave inversion in leads 1, 2, 3, aVF and V2 through V6 and ST depression in leads 2, 3, aVF, and V3 through V6. Labs completed and reviewed. CBC, coags, and CMP were unremarkable. Troponin negative at less than 0.012. ProBNP 138. TSH 1.470. Chest x-ray was completed and personally reviewed s howing clear lungs and no signs of acute cardiopulmonary process. Discussed in detail with ED physician, patient was started on Cardizem infusion and heparin infusion and the decision was made to admit to stepdown unit with telemetry under our services with consultation to cardiology. Review of systems: Pertinent positives and negatives as discussed in HPI, a complete review of systems was performed and all other systems are negative. Physical exam: Vital signs reviewed and stable. General: Nontoxic, no distress and appears stated age. Derm: Skin warm and dry, normal coloration for ethnicity. Head: Atraumatic, normocephalic and symmetric. Eyes: EOMs intact, no lid lag, and anicteric sclera Mouth: no lip lesions, mucus membranes moist Cardiovascular: Irregularly irregular rate and rhythm, no murmur, positive posterior tibial pulses bilaterally, and cap refill < 2 seconds. Lungs: Respirations even, regular, and unlabored on room air. Lungs CTA bilaterally, no rhonchi, no rales, no wheezing, and no accessory muscle usage. Abdominal: soft, nontender to palpation, no guarding, no appreciable organomegaly Ext: ROM intact. No gross muscle atrophy, no edema, no contractures Neuro: Speech clear, face symmetrical and CN II-XII grossly intact with no noted focal neuro deficits Psych: Alert and oriented to person, place, time, and situation. Appropriate and pleasant affect. Assessment and Plan of Care: Atrial fibrillation with RVR Hypertension Hyperlipidemia -Upon arrival to the emergency department patient was found to be in A. fib RVR with ventricular rate 150s to 160s with a stable blood pressure of 107/58 and SpO2 100% on room air. -Initial EKG was completed showing atrial fibrillation with a rapid ventricular rate of 148 bpm with T-wave inversion in leads 1, 2, aVL, aVF, and V2 through V6 and ST depression in leads II and V3 through V6 with the exception of converting back into atrial fibrillation and new onset T-wave inversion in V2 and aVF EKG is unchanged when compared to EKG completed 11/14/21 showing normal sinus rhythm 70 bpm with T-wave inversion in leads 1, 2, aVL, and V3 through V6 with ST depression in leads 2 and V3 through V6. -Repeat EKG completed at 1:37 PM showing atrial fibrillation with RVR at 108 bpm with T-wave inversion in leads 1, 2, 3, aVF and V2 through V6 and ST depression in leads 2, 3, aVF, and V3 through V6. -Labs completed and reviewed. CBC, coags, and CMP were unremarkable. Troponin negative at less than 0.012. ProBNP 138. TSH 1.470. -Chest x-ray was completed and personally reviewed showing clear lungs and no signs of acute cardiopulmonary process. -Discussed in detail with ED physician, patient was started on Cardizem infusion and heparin infusion and accepted for admission to stepdown unit with telemetry under our services with consultation to cardiology. -We will continue with Cardizem infusion for rate control and heparin infusion for anticoagulation. -Cardiology consulted and discussed with cardiac DIRECTOR OF VOLUNTEER SERVICES and started patient on flecainide 50 mg by mouth every 12 hours. -Patient to remain on continuous telemetry monitoring. The patient is admitted with an anticipated greater than 2 midnight stay for evaluation of atrial fibrillation with RVR. CODE STATUS: Full code DVT prophylaxis: Heparin infusion Discussed with: Patient, ED physician, and cardiology DIRECTOR OF VOLUNTEER SERVICES Anticipated discharge date: Clinical course to determine Anticipated discharge place: Home PATIENT SEEN INDEPENDENTLY BY NURSE PRACTITIONER. This document was prepared using [employer] dictation software. Please allow for errors in binder cutter while rare they do occur. Campbell Marin NP rendered care for this patient independently, reviewed the findings and plan as documented in the note above. I did not physically speak with or examine the patient on this date. Past Medical History Past Medical History: Atrial Fibrillation Additional Past Medical History / Comment(s): atrial fib, neck pain History of Any Multi-Drug Resistant Organisms: None Reported Past Surgical History: Cardiac Ablation, Orthopedic Surgery Additional Past Surgical History / Comment(s): cardiac ablation Past Psychological History: No Psychological Hx Reported Smoking Status: Never smoker Past Alcohol Use History: None Reported Past Drug Use History: None Reported Medications and Allergies Home Medications Medication Instructions Recorded Confirmed Type Aspirin 325 mg PO HS 04/18/22 04/18/22 History Flecainide Acetate 50 mg PO DAILY PRN 04/18/22 04/18/22 History Metoprolol Succinate (ER) [Toprol 25 mg PO DAILY 04/18/22 04/18/22 History Xl] Metoprolol Succinate (ER) [Toprol 50 mg PO DAILY 04/18/22 04/18/22 History Xl] Simvastatin [Zocor] 20 mg PO HS 04/18/22 04/18/22 History Allergies Allergy/AdvReac Type Severity Reaction Status Date / Time No Known Allergies Allergy Verified 04/18/22 13:39 Physical Exam Osteopathic Statement: *. No significant issues noted on an osteopathic structural exam other than those noted in the History and Physical/Consult. Vitals: Vital Signs Temp Pulse Resp BP Pulse Ox 04/18/22 14:00 152 H 15 112/81 95 04/18/22 13:50 134 H 18 112/81 94 L 04/18/22 13:40 135 H 17 130/80 97 04/18/22 13:30 137 H 15 115/87 96 04/18/22 13:20 142 H 13 95 04/18/22 13:10 128 H 13 109/84 96 04/18/22 13:00 141 H 22 109/84 95 04/18/22 12:06 135 H 18 124/78 94 L 04/18/22 11:33 97.3 F L 150 H 20 107/58 100 Intake and Output 04/17/22 04/18/22 04/18/22 22:59 06:59 14:59 Intake Total 7.083 Balance 7.083 Intake: Intake, IV Titration 7.083 Amount Diltiazem 125 mg In 7.083 Sodium Chloride 0.9% 100 ml @ Per Protocol IV .Q0M [facility] Rx#:[id number] Other: Weight 95.254 kg Results CBC & Chem 7: 04/18/22 11:51 04/18/22 11:51 Labs: Abnormal Lab Results - Last 24 Hours (Table) 04/18/22 Range/Units 11:51 Sodium 136 L (137-145) mmol/L Glucose 162 H (74-99) mg/dL
[2022-04-18] MEDS ORDERED: ATORVASTATIN 10 MG TAB PO SCH (21:00)
[2022-04-18] MEDS ORDERED: ASPIRIN 325 MG TAB PO SCH (21:00)
[2022-04-18] MEDS: FLECAINIDE 50 MG TAB PO SCH ×2 (21:38→21:39)
[2022-04-18] MEDS: METOPROLOL SUCCINATE (ER) 50 MG TAB.ER.24H PO SCH (21:52)
[2022-04-19 02:46] LABS: Basophils # (A) 0.1 k/uL (0-0.2); Basophils % (A) 1 %; Eosinophils # (A) 0.3 k/uL (0-0.7); Eosinophils % (A) 3 %; HGB 15.4 gm/dL (13.0-17.5); Lymphocytes # (A) 2.7 k/uL (1.0-4.8); Lymphocytes % (A) 30 %; MCH 33.5 pg (25.0-35.0); MCHC 35.9 g/dL (31.0-37.0); MCV 93.5 fL (80.0-100.0); Monocytes # (A) 0.5 k/uL (0-1.0); Monocytes % (A) 5 %; Neutrophils # (A) 5.1 k/uL (1.3-7.7); Neutrophils % (A) 58 %; Platelet Count 234 k/uL (150-450); RDW 13.5 % (11.5-15.5); WBC 8.8 k/uL (3.8-10.6)
[2022-04-19 03:02] LABS: INR 0.9 (<1.2); Prothrombin Time 9.8 sec (9.0-12.0)
[2022-04-19] MEDS: DILTIAZEM 125 MG in SODIUM CHLORIDE 0.9% 100 ML IV SCH (07:07)
[2022-04-19] MEDS: METOPROLOL SUCCINATE (ER) 50 MG TAB.ER.24H PO SCH (08:29)
[2022-04-19] MEDS: FLECAINIDE 50 MG TAB PO SCH (08:29)
[2022-04-19] MEDS ORDERED: METOPROLOL SUCCINATE (ER) 25 MG TAB.ER.24H PO SCH (09:00)
[2022-04-19 09:39] VITALS: TEMP 98.3
[2022-04-19 10:16] LABS: Potassium 4.6 mmol/L (3.5-5.1)
[2022-04-19] MEDS: HEPARIN SOD,PORK IN 0.45% NACL 25,000 UNIT in 0.45% NACL 1 250ML.BAG IV SCH (10:34)
[2022-04-19] MEDS ORDERED: APIXABAN 5 MG TAB PO SCH (12:00)
--- NOTE | 2022-04-19 12:32 | P.PN ---
Subjective Progress Note Date: 04/19/22 HISTORY OF PRESENT ILLNESS: This is a 66-year-old male with a past medical history significant for paroxysmal atrial fibrillation with previous ablations 2, most recently in 2020 performed in [place]. Patient follows with Dr. García in [place]. We have been asked to see the patient in consultation for atrial fibrillation. Patient examined at the bedside. Patient reports she started having palpitations this morning around 10 AM. He is prescribed flecainide on a as needed basis. He states he took a dose of his flecainide this morning but his palpitations persisted so he presented to the emergency room for further evaluation. He currently denies chest pain or pressure. He denies shortness of breath. The patient states he saw his furnace converter last week and his metoprolol succinate was increased to 75 mg daily. Patient reports he has had a stress test in the past which have been negative to his knowledge. He is unsure if he has had a cardiac catheterization in the past but believes he has an did not think he had any blockages. He reports minimal caffeine use. He denies any alcohol use. He is a nonsmoker. He denies a history of hypertension or diabetes. * EKG reveals sinus mechanism with bursts of atrial fibrillation. On bedside telemetry, patient will have a few sinus beats then bursts of afib, then a few sinus beats. * Chest xray negative for acute process * Laboratory data: WBC 7.0. Hemoglobin 16.2. Platelet count 242. Sodium 136. Potassium 4.6. BUN 18. Creatinine 0.95. Troponin negative 1. ProBNP 138. * Current home cardiac medications include simvastatin 20 mg at night, aspirin 325 mg at night, and metoprolol succinate 75 mg daily 04/19/2022 Patient examined this morning at the bedside. Patient denies chest pain or pressure. He denies shortness of breath. Telemetry reveals sinus mechanism with a heart rate in the 60s. He remains on IV heparin. His IV Cardizem has been discontinued. Records from his primary furnace converter reviewed revealing recent echocardiogram with ejection fraction 60-65%. PHYSICAL EXAM: VITAL SIGNS: Reviewed. GENERAL: Well-developed in no acute distress. HEENT: Head is normocephalic. Pupils are equal, round. Sclerae anicteric. Mucous membranes of the mouth are moist. Neck supple. No JVD or thyromegaly LUNGS: Respirations even and unlabored. Lungs essentially clear to auscultation bilaterally. HEART: Regular rate and rhythm. S1 and S2 heard. ABDOMEN: Soft. Nondistended. Nontender. EXTREMITIES: Normal range of motion. No clubbing or cyanosis. Peripheral pulses intact. No lower extremity edema NEUROLOGIC: Awake and alert. Oriented x 3. ASSESSMENT: Palpitations Paroxysmal atrial fibrillation with RVR, currently maintaining sinus mechanism History of ablation 2, most recently in 2020 in [place] Hyperlipidemia PLAN: Discontinue IV heparin Begin Eliquis 5mg BID Continue flecainide 50 mg every 12 hours Continue metoprolol succinate 50 mg twice a day Patient is stable for discharge home today from a cardiac standpoint. He is to follow up on an outpatient basis with his primary furnace converter Nurse practitioner note has been reviewed by physician. Signing provider agrees with the documented findings, assessment, and plan of care. Objective - Vital Signs Vital signs: Vital Signs Temp 98.3 F 04/19/22 08:30 Pulse 66 04/19/22 08:30 Resp 18 04/19/22 08:30 BP 118/72 04/19/22 08:30 Pulse Ox 97 04/19/22 08:30 FiO2 Intake & Output 04/18/22 04/19/22 04/19/22 18:59 06:59 18:59 Intake Total 7.083 198.848 157.364 Balance 7.083 198.848 157.364 Weight 95.254 kg 95.254 kg Intake: Intake, IV Titration 7.083 198.848 157.364 Amount Diltiazem 125 mg In 54.667 62 Sodium Chloride 0.9% 100 ml @ 10 MG/HR 10 mls/hr IV .[id number] [facility] Rx#: [id number] Diltiazem 125 mg In 7.083 Sodium Chloride 0.9% 100 ml @ Per Protocol IV .Q0M [facility] Rx#:[id number] Heparin Sod,Pork in 0.45% 144.181 95.364 NaCl 25,000 unit In 0.45 % NaCl 1 250ml.bag @ 10. 499 UNITS/KG/HR 10.001 mls/hr IV .Q24H [facility] Rx#: [id number] Other: Voiding Method Toilet Toilet # Voids 1 2 - Labs CBC & Chem 7: 04/19/22 01:39 04/19/22 08:43 Labs: Abnormal Lab Results - Last 24 Hours (Table) 04/18/22 04/18/22 04/19/22 Range/Units 16:35 19:14 08:43 APTT (22.0-30.0) sec Sodium 135 L (137-145) mmol/L Carbon Dioxide 20 L (22-30) mmol/L Glucose 185 H (74-99) mg/dL Troponin I 0.061 H* 0.096 H* (0.000-0.034) ng/mL 04/19/22 Range/Units 08:43 APTT 40.0 H (22.0-30.0) sec Sodium (137-145) mmol/L Carbon Dioxide (22-30) mmol/L Glucose (74-99) mg/dL Troponin I (0.000-0.034) ng/mL
[2022-04-19 12:53] VITALS: BP 136/79; PULSE 64; RESP 17
--- NOTE | 2022-04-19 13:53 | P.DS ---
Providers Date of admission: 04/18/22 13:58 Expected date of discharge: 04/19/22 Attending physician: Kathie Cisneros DO Consults: 04/18/22 13:22 Consult Physician Routine Consulting Provider: [facility] Consult Reason/Comments: afib with rvr Do you want consulting provider notified?: Yes Primary care physician: [facility] Course: Discharge Diagnosis: Atrial fibrillation with RVR. Patient converted back to normal sinus mechanism. He was started on oral anticoagulant with Eliquis 5 mg twice a day, metoprolol was increased to 50 mg twice a day, and patient started on Flecainide 14 mg twice daily. Hypertension Hyperlipidemia Hospital Course: Patient is a very pleasant 66-year-old male with a past medical history of paroxysmal atrial fibrillation status post ablation 2, hypertension, and hyperlipidemia. Patient is not currently on anticoagulant. He is currently new to this area as he recently moved up to [place] from [place]. Patient states that he did make an appointment with a manager home improvement Dr. García in [place] who recently increased his metoprolol to 75 mg daily due to breakthrough episodes of atrial fibrillation. However, patient reports over the past few days he has had recurrent episodes of atrial fibrillation with RVR. Patient reports he can feel the palpitations in his throat when this occurs. Patient states this morning around [address] driving he felt his heart go into atrial fibrillation with RVR. Patient reports he was on his way to a doctor's appointment and immediately pulled over and took his flecainide hoping that would convert him back into normal sinus rhythm. Patient states he then called the office but was instructed that he needed to go to the emergency department for evaluation. Patient reports experiencing a mild chest pressure with these palpitations but denies having any headache, lightheadedness, dizziness, diaphoresis, shortness of breath, nausea, vomiting, or experiencing any numbness/tingling/weakness in his extremities. Upon arrival to the emergency department patient was found to be in A. fib RVR with ventricular rate 150s to 160s with a stable blood pressure of 107/58 and SpO2 100% on room air. An EKG was completed showing atrial fibrillation with a rapid ventricular rate of 148 bpm with T-wave inversion in leads 1, 2, aVL, aVF, and V2 through V6 and ST depression in leads II and V3 through V6 with the exception of converting back into atrial fibrillation and new onset T-wave inversion in V2 and aVF EKG is unchanged when compared to EKG completed 11/14/21 showing normal sinus rhythm 70 bpm with T-wave inversion in leads 1, 2, aVL, and V3 through V6 with ST depression in leads 2 and V3 through V6. Repeat EKG completed at 1:37 PM showing atrial fibrillation with RVR at 108 bpm with T-wave inversion in leads 1, 2, 3, aVF and V2 through V6 and ST depression in leads 2, 3, aVF, and V3 through V6. Labs completed and reviewed. CBC, coags, and CMP were unremarkable. Troponin negative at less than 0.012. ProBNP 138. TSH 1.470. Chest x-ray was completed and personally reviewed showing clear lungs and no signs of acute cardiopulmonary process. Discussed in detail with ED physician, patient was started on Cardizem infusion and heparin infusion and the decision was made to admit to stepdown unit with telemetry under our services with consultation to cardiology. Troponins trended overnight increasing from less than 0.012 to 0.061 and 0.096. Patient converted back into normal sinus rhythm. Echocardiogram report faxed from [facility] [place] in [facility] was reviewed showing recent echocardiogram completed 01/24/21 showed an EF of 70% with mild aortic sclerosis and mild mitral regurgitation. Patient was seen and evaluated by cardiology, recommending no further cardiac testing inpatient stating patient to follow-up outpatient with his primary manager home improvement. Patient is medically stable at this time and free from any chest pain or palpitations. Patient being discharged home and to follow up outpatient with PCP in 1-2 days and cardiology in 1 week. Prescriptions sent for aspirin, Eliquis, flecainide, and metoprolol. Physical exam: Vital signs reviewed and stable. General: Nontoxic, no distress and appears stated age. Derm: Skin warm and dry, normal coloration for ethnicity. Head: Atraumatic, normocephalic and symmetric. Eyes: EOMs intact, no lid lag, and anicteric sclera Mouth: no lip lesions, mucus membranes moist Cardiovascular: Regular rate and rhythm. No murmur, positive posterior tibial pulses bilaterally, and cap refill < 2 seconds. Lungs: Respirations even, regular, and unlabored on room air. Lungs CTA bilaterally, no rhonchi, no rales, no wheezing, and no accessory muscle usage. Abdominal: soft, nontender to palpation, no guarding, no appreciable orga nomegaly Ext: ROM intact. No gross muscle atrophy, no edema, no contractures Neuro: Speech clear, face symmetrical and CN II-XII grossly intact with no noted focal neuro deficits Psych: Alert and oriented to person, place, time, and situation. Appropriate and pleasant affect. A total of 32 minutes of time were spent preparing this complex discharge summary. Pt was discharged on 04/19/22 at 1:35 PM PATIENT WAS SEEN INDEPENDENTLY BY NURSE PRACTITIONER. This document was prepared using [employer] dictation software. Please allow for errors in early childhood specialist while rare they do occur. Campbell Marin NP rendered care for this patient independently, reviewed the findings and plan as documented in the note above. I did not physically speak with or examine the patient on this date. Patient Condition at Discharge: Stable Plan - Discharge Summary New Discharge Prescriptions: New Aspirin 81 mg PO DAILY 30 Days #30 tab Apixaban [Eliquis] 5 mg PO BID 30 Days #60 tab Flecainide [Tambocor] 50 mg PO Q12HR 30 Days #60 tab Metoprolol Succinate (ER) [Toprol XL] 50 mg PO BID 30 Days #60 tab Continue Simvastatin [Zocor] 20 mg PO HS Discontinued Metoprolol Succinate (ER) [Toprol Xl] 50 mg PO DAILY Aspirin 325 mg PO HS Metoprolol Succinate (ER) [Toprol Xl] 25 mg PO DAILY Flecainide Acetate 50 mg PO DAILY PRN PRN Reason: Chest Pain Discharge Medication List Simvastatin [Zocor] 20 mg PO HS 04/18/22 [History] Apixaban [Eliquis] 5 mg PO BID 30 Days #60 tab 04/19/22 [Rx] Aspirin 81 mg PO DAILY 30 Days #30 tab 04/19/22 [Rx] Flecainide [Tambocor] 50 mg PO Q12HR 30 Days #60 tab 04/19/22 [Rx] Metoprolol Succinate (ER) [Toprol XL] 50 mg PO BID 30 Days #60 tab 04/19/22 [Rx] Follow up Appointment(s)/Referral(s): Richy García MD [REFERRING] - 1 Week (appointment made by patient ) McPhilimy,Christos, DO [Primary Care Provider] - 1-2 days (appointment made by patient ) Patient Instructions/Handouts: A-fib (Atrial Fibrillation) (DC) Activity/Diet/Wound Care/Special Instructions: Activity: As tolerated. Take breaks as needed. Diet: Heart healthy and carb consistent diet. Avoid salts, or foods with hidden salts such as canned or boxed foods and frozen dinners. Extra salt makes your heart work harder and traps the fluid in your body for longer. Special Instructions: Take all of your medications as directed and remember to keep all of your doctor's appointments and follow-up as needed. Thank you for allowing us to participate in your care, it was truly a pleasure having you for our patient!!! Discharge Disposition: HOME SELF-CARE
== END 2022-04-19 16:47 | disposition home or self-care (01) ==
LOC: EC 11:29 → 3SCARD 13:58 → INTOOBSV 13:58 → 3SCARD 14:35 → UNDODISIN 04-19 16:47
PROVIDERS: ADMIT Internal Medicine; ATTEND Internal Medicine
DX: I48.0 Paroxysmal atrial fibrillation (principal); E78.5 Hyperlipidemia, unspecified; I10 Essential (primary) hypertension; Z79.82 Long term (current) use of aspirin; Z79.899 Other long term (current) drug therapy
CPT/HCPCS: 96366 ×3; 96368 ×2; 96376; 96361; 96365; 99291; 36415; 94760 ×2; 93005; 83880; 80053; 80048; 84443; 83735; 84484; 85025 ×2; 85610 ×2; 85730 ×2; 71046; G0378 ×2; J1644 ×3

== ENCOUNTER 2022-07-27 16:36 | Observation (INO) | payer MEDICARE ==
[2022-07-27] MEDS ORDERED: SODIUM CHLORIDE 0.9% 500 ML 500 ML IV STA (16:45)
[2022-07-27] MEDS ORDERED: DILTIAZEM DRIP BOLUS FROM BAG 1 MG SOLN IV ONE (16:46)
[2022-07-27] MEDS ORDERED: KETOROLAC 15 MG/ML 1 ML VIAL IVP STA (16:46)
--- NOTE | 2022-07-27 16:59 | ED ---
General Adult HPI - General Chief complaint: Chest Pain Stated complaint: Chest Pain Time Seen by Provider: 07/27/22 16:40 Source: patient, EMS, RN notes reviewed, old records reviewed Mode of arrival: EMS Limitations: no limitations - History of Present Illness Initial comments: This is a 67-year-old male who presents emergency Department complaining of chest pain and shortness of breath per patient states she has a history of atrial fibrillation. Patient states he's had 3 ablations the last of which was 3 days ago. Patient states since the ablation 3 days was having significant chest pain on the way home today he couldn't bear it anymore so he called EMS and they brought him into [facility]. Patient states he does feel as though his heart is racing. Patient also states that he was told he had pericardial effusion and it just monitoring it but he can no longer stand the pain and is very short of breath. Patient denies any fever chills per patient denies any swelling in the legs. Patient denies any back pain. Patient denies any other symptoms at this time. - Related Data Home Medications Medication Instructions Recorded Confirmed Simvastatin [Zocor] 20 mg PO HS 04/18/22 04/18/22 Previous Rx's Medication Instructions Recorded Apixaban [Eliquis] 5 mg PO BID 30 Days #60 tab 04/19/22 Aspirin 81 mg PO DAILY 30 Days #30 tab 04/19/22 Flecainide [Tambocor] 50 mg PO Q12HR 30 Days #60 tab 04/19/22 Metoprolol Succinate (ER) [Toprol 50 mg PO BID 30 Days #60 tab 04/19/22 XL] Allergies Allergy/AdvReac Type Severity Reaction Status Date / Time No Known Allergies Allergy Verified 07/27/22 16:47 Review of Systems ROS Statement: Those systems with pertinent positive or pertinent negative responses have been documented in the HPI. ROS Other: All systems not noted in ROS Statement are negative. Past Medical History Past Medical History: Atrial Fibrillation Additional Past Medical History / Comment(s): atrial fib, neck pain, closed head injury History of Any Multi-Drug Resistant Organisms: None Reported Past Surgical History: Cardiac Ablation, Orthopedic Surgery Additional Past Surgical History / Comment(s): cardiac ablation x2 Past Psychological History: No Psychological Hx Reported Smoking Status: Never smoker Past Alcohol Use History: None Reported Past Drug Use History: None Reported General Exam - General Exam Comments Initial Comments: GENERAL: Patient is well-developed and well-nourished. Patient is nontoxic and well- hydrated and is in mild distress. ENT: Neck is soft and supple. No significant lymphadenopathy is noted. Oropharynx is clear. Moist mucous membranes. Neck has full range of motion without regulo citing any pain. EYES: The sclera were anicteric and conjunctiva were pink and moist. Extraocular movements were intact and pupils were equal round and reactive to light. Eyelids were unremarkable. PULMONARY: Unlabored respirations. Patient has crackles in the bilateral bases. CARDIOVASCULAR: Patient is tachycardic at 160 beats a minute and it appears to be a regular ABDOMEN: Soft and nontender with normal bowel sounds. SKIN: Skin is clear with no lesions or rashes and otherwise unremarkable. NEUROLOGIC: Patient is alert and oriented x3. Cranial nerves II through XII are grossly intact. Motor and sensory are also intact. Normal speech, volume and content. Symmetrical smile. MUSCULOSKELETAL: Normal extremities with adequate strength and full range of motion. LYMPHATICS: No significant lymphadenopathy is noted PSYCHIATRIC: Normal psychiatric evaluation. Limitations: no limitations Course Vital Signs 07/27/22 07/27/22 07/27/22 16:40 16:50 17:00 Pulse Rate 1 L 161 H Respiratory 22 30 H Rate Blood Pressure 109/71 109/71 O2 Sat by Pulse 91 L 95 Oximetry 07/27/22 07/27/22 17:30 19:38 Pulse Rate 149 H 140 H Respiratory 19 22 Rate Blood Pressure 103/85 94/54 O2 Sat by Pulse 96 94 L Oximetry Medical Decision Making - Medical Decision Making EKG was interpreted by myself. EKG shows atrial fibrillation with rapid ventricular response at 176 bpm QRS is 79 2 QT interval is 238 QTC is 332. P atient's EKG shows no ST segment elevation Was pt. sent in by a medical professional or institution (, PA, MARBLE MACHINE TENDER, urgent care, hospital, or custodial...) When possible be specific @ -[No] Did you speak to anyone other than the patient for history (EMS, parent, family, police, friend...)? What history was obtained from this source @ -[No] Did you review nursing and triage notes (agree or disagree)? Why? @ -[I reviewed and agree with nursing and triage notes] Were old charts reviewed (outside hosp., previous admission, EMS record, old EKG, old radiological studies, urgent care reports/EKG's, custodial records)? Report findings @ -Prior lab work prior charts on this patient Differential Diagnosis (chest pain, altered mental status, abdominal pain women, abdominal pain men, vaginal bleeding, weakness, fever, dyspnea, syncope, headache, dizziness, GI bleed, back pain, seizure, CVA, palpatations, mental health, musculoskeletal)? @ -Differential Chest Pain: Stable Angina, Unstable Angina, STEMI, NSTEMI Aortic Dissection, Pneumothorax, Musculoskeletal, Esophageal Spasm GERD, Cholecystitis, Pancreatitis, Zoster, this is not meant to be an all-inclusive list. EKG interpreted by me (3pts min.). @ -[As above] X-rays interpreted by me (1pt min.). @ -Chest x-ray was interpreted by myself shows no acute abnormalities CT interpreted by me (1pt min.). @ -[None done] U/S interpreted by me (1pt. min.). @ -[None done] What testing was considered but not performed or refused? (CT, X-rays, U/S, labs)? Why? @ -[None] What meds were considered but not given or refused? Why? @ -[None] Did you discuss the management of the patient with other professionals (professionals i.e. , PA, MARBLE MACHINE TENDER, lab, RT, psych nurse, director social service, undertaker helper, teacher, targeting acquisition officer, pillowcase maker)? Give summary @ -Spoke with sounds physicians and they agreed to admit the patient admitted the patient wrote admitting orders. Was smoking cessation discussed for >3mins.? @ -[No] Was critical care preformed (if so, how long)? @ -35 minutes Were there social determinants of health that impacted care today? How? (Homelessness, low income, unemployed, alcoholism, drug addiction, transportation, low edu. Level, literacy, decrease access to med. care, nursing home, rehab)? @ -[No] Was there de-escalation of care discussed even if they declined (Discuss DNR or withdrawal of care, Hospice)? DNR status @ -[No] What co-morbidities impacted this encounter? (DM, HTN, Smoking, COPD, CAD, Cancer, CVA, ARF, Chemo, Hep., AIDS, mental health diagnosis, sleep apnea, morbid obesity)? @ -[None] Was patient admitted / discharged? Hospital course, mention meds given and route, prescriptions, significant lab abnormalities, going to OR and other pertinent info. @ -Patient came in tachycardic at about 170 - 190 beats a minute. Patient had a bolus of Cardizem and then placed on a Cardizem drip. Patient also got 25 of metoprolol. I spoke with cardiology. They were happy to see him on consult if the patient didn't want to go to [facility] I spoke with the family 01 to go to [facility] so we made an attempt to 3 hours they never called back family came out and asked me if he could just keep the patient here I spoke with sounds physicians there and agreement with keep the patient here. Patient also states he has a history of a pericarditis so he still having some chest pain which is been ongoing since he had the ablation 3 days ago. I did indicate to Dr. Willingham when he called back at the patient had an elevated troponin and he believed that this was secondary to the ablation Undiagnosed new problem with uncertain prognosis? @ -[No] Drug Therapy requiring intensive monitoring for toxicity (Heparin, Nitro, Insulin, Cardizem)? @ -[No] Were any procedures done? @ -[No] Diagnosis/symptom? @ -A. fib with rapid ventricular response Acute, or Chronic, or Acute on Chronic? @ -Acute on chronic Uncomplicated (without systemic symptoms) or Complicated (systemic symptoms)? @ -Complicated Side effects of treatment? @ -[No] Exacerbation, Progression, or Severe Exacerbation? @ -[No] Poses a threat to life or bodily function? How? (Chest pain, USA, IA, pneumonia, PE, COPD, DKA, ARF, appy, cholecystitis, CVA, Diverticulitis, Homicidal, Suicidal, threat to staff... and all critical care pts) @ -Yes this could lead to poor perfusion and hypoxia which can lead to end organ dysfunction - Lab Data Result diagrams: 07/27/22 16:53 07/27/22 16:53 Lab Results 07/27/22 07/27/22 07/27/22 Range/Units 16:53 16:53 16:53 WBC 12.7 H (3.8-10.6) k/uL RBC 4.16 L (4.30-5.90) m/uL Hgb 14.0 (13.0-17.5) gm/dL Hct 40.6 (39.0-53.0) % MCV 97.7 (80.0-100.0) fL MCH 33.6 (25.0-35.0) pg MCHC 34.4 (31.0-37.0) g/dL RDW 13.3 (11.5-15.5) % Plt Count 211 (150-450) k/uL MPV 7.0 Neutrophils % 82 % Lymphocytes % 10 % Monocytes % 6 % Eosinophils % 1 % Basophils % 0 % Neutrophils # 10.3 H (1.3-7.7) k/uL Lymphocytes # 1.3 (1.0-4.8) k/uL Monocytes # 0.8 (0-1.0) k/uL Eosinophils # 0.1 (0-0.7) k/uL Basophils # 0.0 (0-0.2) k/uL PT 10.3 (9.0-12.0) sec INR 1.0 (<1.2) APTT 22.6 (22.0-30.0) sec Sodium 134 L (137-145) mmol/L Potassium 3.8 (3.5-5.1) mmol/L Chloride 102 (98-107) mmol/L Carbon Dioxide 25 (22-30) mmol/L Anion Gap 7 mmol/L BUN 20 (9-20) mg/dL Creatinine 1.03 (0.66-1.25) mg/dL Est GFR (CKD-EPI)AfAm 88 (>60 ml/min/1.73 sqM) Est GFR (CKD-EPI)NonAf 76 (>60 ml/min/1.73 sqM) Glucose 127 H (74-99) mg/dL Plasma Lactic Acid Justin (0.7-2.0) mmol/L Calcium 8.7 (8.4-10.2) mg/dL Magnesium 2.1 (1.6-2.3) mg/dL Total Bilirubin 1.0 (0.2-1.3) mg/dL AST 42 (17-59) U/L ALT 62 H (4-49) U/L Alkaline Phosphatase 85 (38-126) U/L Troponin I (0.000-0.034) ng/mL NT-Pro-B Natriuret Pep pg/mL Total Protein 6.3 (6.3-8.2) g/dL Albumin 3.7 (3.5-5.0) g/dL 07/27/22 07/27/22 07/27/22 Range/Units 16:53 16:53 16:53 WBC (3.8-10.6) k/uL RBC (4.30-5.90) m/uL Hgb (13.0-17.5) gm/dL Hct (39.0-53.0) % MCV (80.0-100.0) fL MCH (25.0-35.0) pg MCHC (31.0-37.0) g/dL RDW (11.5-15.5) % Plt Count (150-450) k/uL MPV Neutrophils % % Lymphocytes % % Monocytes % % Eosinophils % % Basophils % % Neutrophils # (1.3-7.7) k/uL Lymphocytes # (1.0-4.8) k/uL Monocytes # (0-1.0) k/uL Eosinophils # (0-0.7) k/uL Basophils # (0-0.2) k/uL PT (9.0-12.0) sec INR (<1.2) APTT (22.0-30.0) sec Sodium (137-145) mmol/L Potassium (3.5-5.1) mmol/L Chloride (98-107) mmol/L Carbon Dioxide (22-30) mmol/L Anion Gap mmol/L BUN (9-20) mg/dL Creatinine (0.66-1.25) mg/dL Est GFR (CKD-EPI)AfAm (>60 ml/min/1.73 sqM) Est GFR (CKD-EPI)NonAf (>60 ml/min/1.73 sqM) Glucose (74-99) mg/dL Plasma Lactic Acid Justin 2.0 (0.7-2.0) mmol/L Calcium (8.4-10.2) mg/dL Magnesium (1.6-2.3) mg/dL Total Bilirubin (0.2-1.3) mg/dL AST (17-59) U/L ALT (4-49) U/L Alkaline Phosphatase (38-126) U/L Troponin I 0.413 H* (0.000-0.034) ng/mL NT-Pro-B Natriuret Pep 684 pg/mL Total Protein (6.3-8.2) g/dL Albumin (3.5-5.0) g/dL Critical Care Time Critical Care Time: Yes Total Critical Care Time: 35 Disposition Clinical Impression: Atrial fibrillation with rapid ventricular response Disposition: ADMITTED IP TO THIS HOSP Referrals: None,Stated [REFERRING] - 1-2 days Time of Disposition: 20:27
[2022-07-27] MEDS ORDERED: DILTIAZEM 125 MG in SODIUM CHLORIDE 0.9% 100 ML IV SCH (17:00)
[2022-07-27 17:09] LABS: Basophils % (A) 0 %; Eosinophils # (A) 0.1 k/uL (0-0.7); Eosinophils % (A) 1 %; HCT 40.6 % (39.0-53.0); Lymphocytes # (A) 1.3 k/uL (1.0-4.8); Lymphocytes % (A) 10 %; MCH 33.6 pg (25.0-35.0); MCHC 34.4 g/dL (31.0-37.0); MCV 97.7 fL (80.0-100.0); Monocytes # (A) 0.8 k/uL (0-1.0); Monocytes % (A) 6 %; Neutrophils # (A) 10.3 k/uL (1.3-7.7); Neutrophils % (A) 82 %; Platelet Count 211 k/uL (150-450); RBC 4.16 m/uL (4.30-5.90); RDW 13.3 % (11.5-15.5); WBC 12.7 k/uL (3.8-10.6)
[2022-07-27 17:21] LABS: ALT 62 U/L (4-49); AST 42 U/L (17-59); African American GFR (CKD) 88 (>60 ml/min/1.73 sqM); Albumin 3.7 g/dL (3.5-5.0); Alkaline Phosphatase 85 U/L (38-126); Anion Gap 7 mmol/L; Blood Urea Nitrogen 20 mg/dL (9-20); Calcium 8.7 mg/dL (8.4-10.2); Carbon Dioxide 25 mmol/L (22-30); Chloride 102 mmol/L (98-107); Glucose 127 mg/dL (74-99); Magnesium 2.1 mg/dL (1.6-2.3); Non-African American GFR(CKD) 76 (>60 ml/min/1.73 sqM); Potassium 3.8 mmol/L (3.5-5.1); Sodium 134 mmol/L (137-145); Total Protein 6.3 g/dL (6.3-8.2)
[2022-07-27] MEDS ORDERED: LORazepam 2 MG/ML INJ IV STA (17:26)
[2022-07-27 17:31] LABS: Partial Thromboplastin Time 22.6 sec (22.0-30.0); Prothrombin Time 10.3 sec (9.0-12.0)
--- NOTE | 2022-07-27 17:39 | XR ---
EXAMINATION: XR chest 2V: 07/27/2022 5:13 PM CLINICAL INDICATION: difficulty breathing TECHNIQUE: AP radiograph COMPARISON: 04/18/2022 FINDINGS: There is a small linear horizontal band of added opacity in the left midlung zone, consistent with di scoid atelectasis. Otherwise, the upper and mid lung zones are clear. Lower lung zones cannot be well assessed due to relatively low lung inflation at the moment of x-ray exposure, not allowing visualiz ation of the lung bases on this AP radiograph. No overt pulmonary edema evidence. The pleural spaces are negative as seen. EKG leads. The cardiac silhouette is not enlarged (AP technique). The skeletal structures and soft tissues are negative for acute findings. IMPRESSION: No definite acute process, as discussed.
[2022-07-27] MEDS ORDERED: METOPROLOL SUCCINATE (ER) 25 MG TAB.ER.24H PO STA (18:05)
[2022-07-27] MEDS ORDERED: HYDROmorphone 0.5 MG/0.5 ML SYRINGE IVP STA (19:56)
[2022-07-27] MEDS ORDERED: NITROGLYCERIN SL TABS 0.4 MG TAB SUBLINGUAL PRN (20:28)
[2022-07-28] MEDS: APIXABAN 5 MG TAB PO SCH ×3 (00:37→21:14)
[2022-07-28] MEDS: COLCHICINE 0.6 MG EACH PO SCH ×3 (00:37→21:13)
[2022-07-28] MEDS: METOPROLOL SUCCINATE (ER) 50 MG TAB.ER.24H PO SCH ×2 (00:52→08:43)
--- NOTE | 2022-07-28 02:58 | P.HPIM ---
History of Present Illness H&P Date: 07/27/22 Chief Complaint: heart racing 67 year old male with Afib s/p ablation patient had multiple ablations in the past , most recent one was 3 days ago at [facility]. he was discharged home today , he was also diagnosed with pericardial effusion and was told this was secondary to rare side effect of ablation, and was placed on colchicine and sent home. by the time he got home, he suddenly started having chest discomfort and heart racing again with SOB. he called EMS and was brought to our facility. patient is not aware that he is on blood thinners which was found on his discharge papers and he was on Eliquis 5 mg BID . he denies any smoking or illicit drugs Review of Systems pertinent positives as noted in HPI. All other systems were reviewed and are negative Past Medical History Past Medical History: Atrial Fibrillation Additional Past Medical History / Comment(s): atrial fib, neck pain, closed head injury History of Any Multi-Drug Resistant Organisms: None Reported Past Surgical History: Cardiac Ablation, Orthopedic Surgery Additional Past Surgical History / Comment(s): cardiac ablation x2 Past Psychological History: No Psychological Hx Reported Smoking Status: Never smoker Past Alcohol Use History: None Reported Past Drug Use History: None Reported Medications and Allergies Home Medications Medication Instructions Recorded Confirmed Type Simvastatin [Zocor] 20 mg PO HS 04/18/22 07/27/22 History Aspirin 81 mg PO DAILY 30 Days #30 tab 04/19/22 07/27/22 Rx Metoprolol Succinate (ER) [Toprol 50 mg PO BID 30 Days #60 tab 04/19/22 07/27/22 Rx XL] Omeprazole 20 mg PO BID 07/27/22 07/27/22 History Allergies Allergy/AdvReac Type Severity Reaction Status Date / Time No Known Allergies Allergy Verified 07/27/22 20:46 Physical Exam Vitals: Vital Signs Pulse Resp BP Pulse Ox 07/27/22 23:25 67 20 97/79 95 07/27/22 21:00 144 H 20 103/80 96 07/27/22 20:00 131 H 20 93/78 94 L 07/27/22 19:38 140 H 22 94/54 94 L 07/27/22 19:30 133 H 18 93/72 93 L 07/27/22 19:00 147 H 20 100/80 95 07/27/22 17:30 149 H 19 103/85 96 07/27/22 17:00 161 H 30 H 109/71 95 07/27/22 16:50 91 L 07/27/22 16:40 1 L 22 109/71 Intake and Output 07/27/22 07/27/22 07/28/22 14:59 22:59 06:59 Intake Total 8.667 32.25 Balance 8.667 32.25 Intake: Intake, IV Titration 8.667 32.25 Amount Diltiazem 125 mg In 8.667 32.25 Sodium Chloride 0.9% 100 ml @ 5 MG/HR 5 mls/hr IV .Q24H [facility] Rx#:[id number] Other: Weight 92.986 kg Constitutional: No acute distress,cooperative Eyes: Anicteric sclerae, moist conjunctiva, Pupils equal round reactive to light ENMT: NC/AT Oropharynx clear, no erythema, or exudates Neck: Supple, no masses, or JVD No carotid bruits No thyromegaly Lungs: Clear to auscultation Clear to percussion Normal respiratory effort, no accessory muscle use Cardiovascular: Heart tachycardia , irregular No murmurs, gallops, or rubs No peripheral edema Abdominal: Soft Nontender, no guarding, rebound or rigidity Abdomen moving with respiration Normoactive bowel sounds No hepatomegaly, No splenomegaly No palpable mass No abdominal wall hernia noted Skin: Normal temperature, tone, texture, turgor Extremities: No digital cyanosis No clubbing Pedal pulses intact and symmetrical Radial pulses intact and symmetrical No calf tenderness Psychiatric: Alert and oriented to person, place and time Appropriate affect fair judgment Neuro Muscles Strength 5/5 in all 4 extremities Sensation to light touch grossly present throughout Cranial nerves II-XII grossly intact Lymphatics: no palpable cervical or supraclavicular lymph nodes Results CBC & Chem 7: 07/27/22 16:53 07/27/22 16:53 Labs: Abnormal Lab Results - Last 24 Hours (Table) 07/27/22 07/27/22 07/27/22 Range/Units 16:53 16:53 16:53 WBC 12.7 H (3.8-10.6) k/uL RBC 4.16 L (4.30-5.90) m/uL Neutrophils # 10.3 H (1.3-7.7) k/uL Sodium 134 L (137-145) mmol/L Glucose 127 H (74-99) mg/dL ALT 62 H (4-49) U/L Troponin I 0.413 H* (0.000-0.034) ng/mL 07/27/22 Range/Units 21:25 WBC (3.8-10.6) k/uL RBC (4.30-5.90) m/uL Neutrophils # (1.3-7.7) k/uL Sodium (137-145) mmol/L Glucose (74-99) mg/dL ALT (4-49) U/L Troponin I 0.664 H* (0.000-0.034) ng/mL Assessment and Plan Assessment: 67 year old male with afib s/p recent ablation, he comes in with heart racing and chest discomfort , I discussed the case with ED doc, and I accepted the admission for Afib with RVR for heart rate control and cardiology eval with anticipated length of stay > 2 midnights afib with RVR , s/p ablation , on eliquis pericardial effusion , recent diagnosis , on colchicine plan apprentice lineman third step electrolytes unremarkable K 3.8 , Mg 2.1 patient given cardizem bolus and initiated on cardizem drip Im titrating the cardizem drip , eventually heart rate control was achieved on 15 mg /hr . then we will gradually wean the drip while transitioning to oral cardizem at 120 mg QID PO cardiology consult resume metoprolol 50 po daily resume eliquis 5 mg po bid IVF hydration s/p 1 L bolus , then NA 0.9% @ 75 cc per hour monitor vital signs resume colchicine 0.6 mg bid for pericardial effusion trops elevated , most likely demand ischemia from afib with RVR. await further cardiology input full code dvT PPX on eliquis for afib
[2022-07-28] MEDS: DILTIAZEM ORAL 60 MG TAB PO SCH ×2 (03:11→08:43)
[2022-07-28] MEDS: KETOROLAC 15 MG/ML 1 ML VIAL IVP SCH ×5 (04:53→23:02)
[2022-07-28] MEDS: PANTOPRAZOLE 40 MG TABLET PO SCH (08:43)
[2022-07-28] MEDS ORDERED: ASPIRIN 81 MG PO SCH (09:00)
[2022-07-28] MEDS ORDERED: ASPIRIN 325 MG TAB PO SCH (09:00)
[2022-07-28 09:47] LABS: Chol/HDL Ratio 3.93 Ratio; LDL Cholesterol,Calculated 120.7 mg/dL (0.0-131.0)
--- NOTE | 2022-07-28 11:20 | P.CRDCN ---
History of Present Illness History of present illness: HISTORY OF PRESENT ILLNESS: This is a 67-year-old male with a past medical history significant for paroxysmal atrial fibrillation with previous ablation and hyperlipidemia. 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 We have been asked to see the patient in consultation for A. fib with RVR. Patient examined at the bedside in the emergency room. Patient presented to the hospital with a chief complaint of palpitations. Patient recently [facility]. The patient states he was told he had a pericardial effusion post procedure but was told it was minimal. He has been started on colchicine per primary medicine. The patient was found to be in A. fib with RVR. The patient was started on IV Cardizem. He subsequently converted to sinus mechanism and is maintaining sinus mechanism at the time of examination with a heart rate in the 60s. * EKG reveals A. fib with RVR * Chest xray no definite acute process * Laboratory data: WBC 12.7. Hemoglobin 14.0. Platelet count 211. Sodium 134. Potassium 3.8. BUN 20. Creatinine 1.03. Troponin 0.413. 0.664. 0.830. * Current home cardiac medications include Eliquis 5mg BID, metoprolol succinate 50 g twice a day, and Zocor 20 mg at night REVIEW OF SYSTEMS: At the time of my exam: CONSTITUTIONAL: Denies fever or chills. HEENT: Denies blurred vision, vision changes, or eye pain. Denies hemoptysis CARDIOVASCULAR: Denies chest pain. Denies orthopnea. Denies PND. Denies palpitations RESPIRATORY: Denies shortness of breath. GASTROINTESTINAL: Denies abdominal pain. Denies nausea or vomiting. HEMATOLOGIC: Denies bleeding disorders. GENITOURINARY: Denies any blood in urine. SKIN: Denies pruitis. Denies rash. PHYSICAL EXAM: VITAL SIGNS: Reviewed. GENERAL: Well-developed in no acute distress. HEENT: Head is normocephalic. Pupils are equal, round. Sclerae anicteric. Mucous membranes of the mouth are moist. Neck supple. No JVD or thyromegaly LUNGS: Respirations even and unlabored. Lungs with fine crackles at the bases HEART: Regular rate and rhythm. S1 and S2 heard. ABDOMEN: Soft. Nondistended. Nontender. EXTREMITIES: Normal range of motion. No clubbing or cyanosis. Peripheral pulses intact. No lower extremity edema NEUROLOGIC: Awake and alert. Oriented x 3. ASSESSMENT: Palpitations Paroxysmal atrial fibrillation with RVR, currently maintaining sinus mechanism Abnormal troponins, likely secondary to above, no evidence of acute coronary syndrome History of recent ablation at [facility], performed on Sunday Postprocedural pericardial effusion, per patient History of previous ablation 2, performed in [place] Hyperlipidemia PLAN: Agree with initiation of colchicine Increase metoprolol succinate to 100 mg daily Discontinue oral Cardizem Continue telemetry monitoring Obtain limited 2-D echo to assess pericardial effusion Further recommendations pending patient course Nurse practitioner note has been reviewed by physician. Signing provider agrees with the documented findings, assessment, and plan of care. Past Medical History Past Medical History: Atrial Fibrillation Additional Past Medical History / Comment(s): atrial fib, neck pain, closed head injury History of Any Multi-Drug Resistant Organisms: None Reported Past Surgical History: Cardiac Ablation, Orthopedic Surgery Additional Past Surgical History / Comment(s): cardiac ablation x2 Past Anesthesia/Blood Transfusion Reactions: No Reported Reaction Past Psychological History: No Psychological Hx Reported Smoking Status: Never smoker Past Alcohol Use History: None Reported Past Drug Use History: None Reported Medications and Allergies Home Medications Medication Instructions Recorded Confirmed Type Simvastatin [Zocor] 20 mg PO HS 04/18/22 07/27/22 History Aspirin 81 mg PO DAILY 30 Days #30 tab 04/19/22 07/27/22 Rx Metoprolol Succinate (ER) [Toprol 50 mg PO BID 30 Days #60 tab 04/19/22 07/27/22 Rx XL] Omeprazole 20 mg PO BID 07/27/22 07/27/22 History Allergies Allergy/AdvReac Type Severity Reaction Status Date / Time No Known Allergies Allergy Verified 07/27/22 20:46 Physical Exam Vitals: Vital Signs Temp Pulse Pulse Resp BP BP Pulse Ox 07/28/22 08:33 97.9 F 66 18 114/83 97 07/28/22 04:52 65 18 107/62 96 07/28/22 04:03 63 18 94/74 07/28/22 02:00 69 18 94/72 07/28/22 00:53 150 H 20 108/69 96 07/27/22 23:25 67 20 97/79 95 07/27/22 21:00 144 H 20 103/80 96 06/15/23 20:00 131 H 20 93/78 94 L 07/27/22 19:38 140 H 22 94/54 94 L 07/27/22 19:30 133 H 18 93/72 93 L 07/27/22 19:00 147 H 20 100/80 95 07/27/22 17:30 149 H 19 103/85 96 07/27/22 17:00 161 H 30 H 109/71 95 07/27/22 16:50 91 L 07/27/22 16:40 1 L 22 109/71 Intake and Output 07/27/22 07/28/22 07/28/22 22:59 06:59 14:59 Intake Total 8.667 97.834 Balance 8.667 97.834 Intake: Intake, IV Titration 8.667 97.834 Amount Diltiazem 125 mg In 8.667 97.834 Sodium Chloride 0.9% 100 ml @ 5 MG/HR 5 mls/hr IV .Q24H [facility] Rx#:[id number] Other: Voiding Method Toilet Weight 92.986 kg 92.986 kg Results 07/27/22 16:53 07/27/22 16:53 Cardiac Enzymes 07/27/22 07/27/22 07/27/22 Range/Units 16:53 16:53 21:25 AST 42 (17-59) U/L Troponin I 0.413 H* 0.664 H* (0.000-0.034) ng/mL 07/27/22 Range/Units 23:39 AST (17-59) U/L Troponin I 0.830 H* (0.000-0.034) ng/mL Coagulation 07/27/22 Range/Units 16:53 PT 10.3 (9.0-12.0) sec APTT 22.6 (22.0-30.0) sec Lipids 07/27/22 Range/Units 16:53 Triglycerides 168.00 H (0.00-149.00) mg/dL Cholesterol 207.00 H (0.00-200.00) mg/dL HDL Cholesterol 52.70 (40.00-60.00) mg/dL Cholesterol/HDL Ratio 3.93 Ratio CBC 07/27/22 Range/Units 16:53 WBC 12.7 H (3.8-10.6) k/uL RBC 4.16 L (4.30-5.90) m/uL Hgb 14.0 (13.0-17.5) gm/dL Hct 40.6 (39.0-53.0) % Plt Count 211 (150-450) k/uL Comprehensive Metabolic Panel 07/27/22 Range/Units 16:53 Sodium 134 L (137-145) mmol/L Potassium 3.8 (3.5-5.1) mmol/L Chloride 102 (98-107) mmol/L Carbon Dioxide 25 (22-30) mmol/L BUN 20 (9-20) mg/dL Creatinine 1.03 (0.66-1.25) mg/dL Glucose 127 H (74-99) mg/dL Calcium 8.7 (8.4-10.2) mg/dL AST 42 (17-59) U/L ALT 62 H (4-49) U/L Alkaline Phosphatase 85 (38-126) U/L Total Protein 6.3 (6.3-8.2) g/dL Albumin 3.7 (3.5-5.0) g/dL Current Medications Generic Name Dose Route Start Last Admin Trade Name Freq PRN Reason Stop Dose Admin Apixaban 5 mg 07/27/22 23:30 07/28/22 08:43 Apixaban 5 Mg Tab PO 5 mg BID HUMPHREY Administration Protocol Aspirin 81 mg 07/28/22 09:00 07/28/22 08:43 Aspirin 81 Mg PO 81 mg DAILY HUMPHREY Administration Atorvastatin Calcium 10 mg 07/28/22 21:00 Atorvastatin 10 Mg Tab PO HS HUMPHREY Colchicine 0.6 mg 07/27/22 23:45 07/28/22 08:43 Colchicine 0.6 Mg Each PO 0.6 mg BID HUMPHREY Administration Diltiazem HCl 120 mg 07/28/22 03:00 07/28/22 08:43 Diltiazem Oral 60 Mg Tab PO 120 mg QID HUMPHREY Administration Diltiazem HCl 125 mg/ Sodium 125 mls @ 5 mls/hr 07/27/22 17:00 07/28/22 05:07 Chloride IV 0 mg/hr .Q24H HUMPHREY 0 mls/hr Infusion 5 MG/HR Sodium Chloride 1,000 mls @ 75 mls/hr 07/28/22 03:30 Saline 0.9% IV .[id number] [facility] Ketorolac Tromethamine 15 mg 07/28/22 00:00 07/28/22 08:43 Ketorolac 15 Mg/Ml 1 Ml Vial IVP 08/01/22 20:30 15 mg Q6HR HUMPHREY Administration Metoprolol Succinate 50 mg 07/27/22 23:15 07/28/22 08:43 Metoprolol Succinate (Er) 50 Mg Tab.Er.24h PO 50 mg DAILY [facility] Administration Nitroglycerin 0.4 mg 07/27/22 20:28 Nitroglycerin Sl Tabs 0.4 Mg Tab SUBLINGUAL Q5M PRN Chest Pain Pantoprazole Sodium 40 mg 07/28/22 07:30 07/28/22 08:43 Pantoprazole 40 Mg Tablet PO 40 mg [id number] Administration Intake and Output 07/27/22 07/28/22 07/28/22 22:59 06:59 14:59 Intake Total 8.667 97.834 Balance 8.667 97.834 Intake: Intake, IV Titration 8.667 97.834 Amount Diltiazem 125 mg In 8.667 97.834 Sodium Chloride 0.9% 100 ml @ 5 MG/HR 5 mls/hr IV .Q24H [facility] Rx#:[id number] Other: Voiding Method Toilet Weight 92.986 kg 92.986 kg 07/27/22 16:53 07/27/22 16:53
--- NOTE | 2022-07-28 12:51 | P.PN ---
Subjective Progress Note Date: 07/28/22 Hospital course Patient is a 67-year-old male with a past medical history of A. fib status post ablation 3 days ago that was complicated by pericardial effusion and pericarditis. Patient was placed on colchicine and sent home. Patient states that after discharge he started having palpitations and chest discomfort and shortness of breath. Patient then called EMS who brought patient to our facility. In the ED patient was in A. fib with RVR. He was started on Cardizem drip. Patient was also restarted on his home dose metoprolol 100 mg daily. Patient then spontaneously converted to normal sinus rhythm. He was weaned off the Cardizem drip. Patient also resume his home dose of Eliquis. Cardiology has been consulted Subjective This morning patient states that he still has chest pain that is worse when he lays down and improves with sitting. Patient states that he has had abrasion 2 times in the past. He states that the ablation procedure is not painful and it is the "fluid around my heart" that makes it painful. Physical exam General examination - Alert and Oriented 3 in NAD Heart - + S1S2 no murmurs Lungs - Clear to auscultation Abdomen soft NT ND +ve BS Extremities - No edema [employer] WEIGH[employer]STER - Moving all 4 extremities spontaneously Psych - Calm and cooperative Assessment and Plan: A. fib with RVR Status post recent cardiac ablation Troponin elevation: Need to rule out ACS Pericardial effusion Pericarditis Based on my assessment of this patient, this patient meets moderate complexity level Patient has been titrated off the Cardizem drip. He is currently on metoprolol XL 1 mg daily. We'll also resume his home dose Eliquis 5mg BID. Patient's troponins are increasing. EKG shows ST depressions in leads V3 and V4 5 and 6. We'll need to rule out ACS. Cardiology consult pending. Patient appears to have had a complication after his ablation. He developed pericardial effusion with pericarditis. Patient on colchicine and IV Toradol 50 mg every 6 hours standing. Cardiology consult pending CODE STATUS: FULL CODE. DVT prophylaxis: Eliquis Anticipated discharge place: Pending clinical course Anticipated discharge time: Pending clinical course I have reviewed the following building energy consultant notes: None I have reviewed the results of the following tests: CBC and BMP and troponins I have ordered the following tests: CBC and BMP for the morning I have discussed the care of this patient with the following independent historian: None I have independently interpreted the following test below: None I have discussed the management of this patient with the following physician: None This patient has a moderate of morbidity due to the following reasons: Elevated troponin and ACS needs to be ruled out A. fib with RVR requiring Cardizem drip Objective - Vital Signs Vital signs: Vital Signs Temp 97.9 F 07/28/22 08:33 Pulse 66 07/28/22 08:33 Resp 18 07/28/22 08:33 BP 114/83 07/28/22 08:33 Pulse Ox 97 07/28/22 08:33 FiO2 Intake & Output 07/27/22 07/28/22 07/28/22 18:59 06:59 18:59 Intake Total 8.667 97.834 Balance 8.667 97.834 Weight 92.986 kg 92.986 kg Intake: Intake, IV Titration 8.667 97.834 Amount Diltiazem 125 mg In 8.667 97.834 Sodium Chloride 0.9% 100 ml @ 5 MG/HR 5 mls/hr IV .Q24H [facility] Rx#:[id number] Other: Voiding Method Toilet - Labs CBC & Chem 7: 07/27/22 16:53 07/27/22 16:53 Labs: Abnormal Lab Results - Last 24 Hours (Table) 07/27/22 07/27/22 07/27/22 Range/Units 16:53 16:53 16:53 WBC 12.7 H (3.8-10.6) k/uL RBC 4.16 L (4.30-5.90) m/uL Neutrophils # 10.3 H (1.3-7.7) k/uL Sodium 134 L (137-145) mmol/L Glucose 127 H (74-99) mg/dL ALT 62 H (4-49) U/L Troponin I 0.413 H* (0.000-0.034) ng/mL Triglycerides (0.00-149.00) mg/dL Cholesterol (0.00-200.00) mg/dL 07/27/22 07/27/22 07/27/22 Range/Units 16:53 21:25 23:39 WBC (3.8-10.6) k/uL RBC (4.30-5.90) m/uL Neutrophils # (1.3-7.7) k/uL Sodium (137-145) mmol/L Glucose (74-99) mg/dL ALT (4-49) U/L Troponin I 0.664 H* 0.830 H* (0.000-0.034) ng/mL Triglycerides 168.00 H (0.00-149.00) mg/dL Cholesterol 207.00 H (0.00-200.00) mg/dL
[2022-07-28] MEDS: SODIUM CHLORIDE 0.9% 1,000 ML IV SCH ×2 (15:04→15:05)
--- NOTE | 2022-07-28 17:37 | CA ---
Transthoracic Echo Report Name: Osei Medina Age: 67 Gender: M : 1955 Exam Date: 07/28/2022 13:40 Exam Location: [facility] Ht (in): 69 Wt (lb): 205 Ordering Physician: Nasrin Valdez Attending/Referring Phys: [id number], José Miguel Straddle Bug Operator Emma Deleon RDCS Procedure CPT: Indications: r/o pericardial effusion, recent ablation Cardiac Hx: Technical Quality: Contrast 1: Total Dose (mL): Contrast 2: Total Dose (mL): MEASUREMENTS (Male / Female) Normal Values 2D ECHO LV Diastolic Diameter PLAX 4.4 cm 4.2 - 5.9 / 3.9 - 5.3 cm LV Systolic Diameter PLAX 2.9 cm IVS Diastolic Thickness 1.3 cm 0.6 - 1.0 / 0.6 - 0.9 cm LVPW Diastolic Thickness 1.0 cm 0.6 - 1.0 / 0.6 - 0.9 cm LV Relative Wall Thickness 0.5 FINDINGS Left Ventricle Left ventricular cavity size normal. Mildly increased left ventricular wall thickness. Normal left ventricular systolic function with no obvious regional wall motion abnormalities. Left ventricular ejection fraction is estimated at 55-60 %. Right Ventricle Right Atrium Left Atrium Mitral Valve Aortic Valve Tricuspid Valve Pulmonic Valve Pericardium Minimal pericardial effusion (normal variant). Aorta CONCLUSIONS Normal left ventricle size and systolic function Limited echo. Previewed by: Dr. Niya Willingham MD (Electronically Signed) Final Date: 28 July 2022 17:36
[2022-07-28] MEDS ORDERED: IBUPROFEN 200 MG TAB PO PRN (20:53)
[2022-07-28] MEDS: ZOLPIDEM 5 MG TAB PO PRN (21:13)
[2022-07-28] MEDS: ATORVASTATIN 10 MG TAB PO SCH (21:14)
--- NOTE | 2022-07-29 06:30 | P.PN ---
Subjective Progress Note Date: 07/29/22 Principal diagnosis: Paroxysmal atrial fibrillation The patient is a pleasant 67-year-old gentleman with known paroxysmal atrial fibrillation status post ablation for her time recently and history of pericardial effusion presented to the hospital complaining of chest discomfort and he was found to be in atrial fibrillation with RVR which is very symptomatic in his case and subsequently he was converted to normal sinus mechanism. He was experiencing pleuritic chest discomfort. He was started on colchicine underwent an echo showed normal right ventricular dimension and systolic function with trivial pericardial effusion. In July 292022 The patient was seen and evaluated. The chest discomfort has improved. He has been maintaining normal sinus mechanism. He is on beta aguilar which has increased yesterday. He is on oral anticoagulation as well. From the cardi ovascular standpoint of view, would continue the current medical regimen and potentially the patient can be discharged home in the next 24 hours. The examination is remarkable for regular rhythm with clear breathing sounds bilaterally and no lower extremity is edema noted. Assessment Paroxysmal atrial fibrillation fibrillation Pericardial effusion None Continue the current medical regimen Follow-up with the patient Objective - Vital Signs Vital signs: Vital Signs Temp 97.9 F 07/29/22 04:00 Pulse 68 07/29/22 04:00 Resp 18 07/29/22 04:00 BP 136/85 07/29/22 04:00 Pulse Ox 96 07/29/22 04:00 FiO2 Intake & Output 07/28/22 07/28/22 07/29/22 06:59 18:59 06:59 Intake Total 97.834 668 20 Balance 97.834 668 20 Weight 92.986 kg Intake: IV 10 20 Invasive Line 1 10 20 Intake, IV Titration 97.834 Amount Diltiazem 125 mg In 97.834 Sodium Chloride 0.9% 100 ml @ 5 MG/HR 5 mls/hr IV .Q24H [facility] Rx#:[id number] Oral 658 Other: Voiding Method Toilet Toilet # Voids 2 1 - Labs CBC & Chem 7: 07/27/22 16:53 07/27/22 16:53 Labs: Abnormal Lab Results - Last 24 Hours (Table) 07/27/22 Range/Units 16:53 Triglycerides 168.00 H (0.00-149.00) mg/dL Cholesterol 207.00 H (0.00-200.00) mg/dL
[2022-07-29] MEDS: PANTOPRAZOLE 40 MG TABLET PO SCH (06:38)
[2022-07-29 08:06] LABS: Basophils % (A) 0 %; Eosinophils # (A) 0.3 k/uL (0-0.7); Eosinophils % (A) 3 %; HCT 39.3 % (39.0-53.0); HGB 13.2 gm/dL (13.0-17.5); Lymphocytes # (A) 1.8 k/uL (1.0-4.8); Lymphocytes % (A) 21 %; MCH 32.5 pg (25.0-35.0); MCHC 33.6 g/dL (31.0-37.0); MCV 96.5 fL (80.0-100.0); Mean Platelet Volume 7.6; Monocytes # (A) 0.4 k/uL (0-1.0); Monocytes % (A) 5 %; Neutrophils % (A) 69 %; Platelet Count 191 k/uL (150-450); RBC 4.07 m/uL (4.30-5.90); RDW 13.6 % (11.5-15.5); WBC 8.7 k/uL (3.8-10.6)
[2022-07-29 08:30] LABS: African American GFR (CKD) 85 (>60 ml/min/1.73 sqM); Anion Gap 6 mmol/L; Blood Urea Nitrogen 19 mg/dL (9-20); Calcium 8.3 mg/dL (8.4-10.2); Carbon Dioxide 26 mmol/L (22-30); Chloride 105 mmol/L (98-107); Glucose 101 mg/dL (74-99); Non-African American GFR(CKD) 73 (>60 ml/min/1.73 sqM); Potassium 3.9 mmol/L (3.5-5.1); Sodium 137 mmol/L (137-145)
[2022-07-29] MEDS: KETOROLAC 15 MG/ML 1 ML VIAL IVP SCH ×3 (08:50→17:15)
[2022-07-29] MEDS: APIXABAN 5 MG TAB PO SCH ×2 (08:50→20:45)
[2022-07-29] MEDS: COLCHICINE 0.6 MG EACH PO SCH ×2 (08:50→20:45)
[2022-07-29] MEDS: SODIUM CHLORIDE 0.9% 1,000 ML IV SCH (08:50)
[2022-07-29] MEDS: METOPROLOL SUCCINATE (ER) 100 MG TAB.ER.24H PO SCH (08:50)
[2022-07-29 09:00] VITALS: RESP 16
--- NOTE | 2022-07-29 11:36 | P.PN ---
Subjective Progress Note Date: 07/29/22 Hospital course Patient is a 67-year-old male with a past medical history of A. fib status post ablation 3 days ago that was complicated by pericardial effusion and pericarditis. Patient was placed on colchicine and sent home. Patient states that after discharge he started having palpitations and chest discomfort and shortness of breath. Patient then called EMS who brought patient to our facility. In the ED patient was in A. fib with RVR. He was started on Cardizem drip. Patient was also restarted on his home dose metoprolol 100 mg daily. Patient then spontaneously converted to normal sinus rhythm. He was weaned off the Cardizem drip. Patient also resume his home dose of Eliquis. Cardiology has been consulted Subjective Patient says that this morning his chest pain is improving. Patient denies any palpitations. He is happy that he'll be staying 1 more day as recommended by cardiology because he is worried that he will go back home and go back into A. fib with RVR. Physical exam General examination - Alert and Oriented 3 in NAD Heart - + S1S2 no murmurs Lungs - Clear to auscultation Abdomen soft NT ND +ve BS Extremities - No edema COMMUNITY RELATIONS LIAISON - Moving all 4 extremities spontaneously Psych - Calm and cooperative Assessment and Plan: A. fib with RVR; now in normal sinus rhythm Status post recent cardiac ablation that was done outpatient and complicated by pericardial effusion and pericarditis Type II DE secondary to A. fib with RVR Pericardial effusion Pericarditis Based on my assessment of this patient, this patient meets moderate complexity level Patient off Cardizem drip. He is currently on metoprolol XL 100 mg daily which is a higher dose than his home dose. We'll also resume his home dose Eliquis 5mg BID. Patient currently in normal sinus rhythm. I reviewed no from cardiology who recommends to monitor the patient for another 24 hours Resume colchicine and IV Toradol 50 mg every 6 hours standing. Echocardiogram shows minimal pericardial effusion and normal LV Patient's vital signs are stable. His labs this morning are unremarkable CODE STATUS: FULL CODE. DVT prophylaxis: Eliquis Anticipated discharge place: Home Anticipated discharge time: Tomorrow if cleared by cardiology I have reviewed the following nissan sales consultant notes: Cardiology I have reviewed the results of the following tests: CBC and BMP I have ordered the following tests: None I have discussed the care of this patient with the following independent historian: None I have independently interpreted the following test below: 2-D echocardiogram I have discussed the management of this patient with the following physician: None This patient has a moderate of morbidity due to the following reasons: A. fib with RVR Objective - Vital Signs Vital signs: Vital Signs Temp 98.1 F 07/29/22 08:45 Pulse 66 07/29/22 08:45 Resp 16 07/29/22 08:45 BP 146/93 07/29/22 08:45 Pulse Ox 97 07/29/22 08:51 FiO2 Intake & Output 07/28/22 07/29/22 07/29/22 18:59 06:59 18:59 Intake Total 668 20 Balance 668 20 Intake: IV 10 20 Invasive Line 1 10 20 Oral 658 Other: Voiding Method Toilet Toilet Toilet # Voids 2 1 1 - Labs CBC & Chem 7: 07/29/22 07:12 07/29/22 07:12 Labs: Abnormal Lab Results - Last 24 Hours (Table) 07/29/22 07/29/22 Range/Units 07:12 07:12 RBC 4.07 L (4.30-5.90) m/uL Glucose 101 H (74-99) mg/dL Calcium 8.3 L (8.4-10.2) mg/dL
[2022-07-29] MEDS: ATORVASTATIN 10 MG TAB PO SCH (20:45)
[2022-07-29] MEDS: ZOLPIDEM 5 MG TAB PO PRN (20:45)
[2022-07-30] MEDS: KETOROLAC 15 MG/ML 1 ML VIAL IVP SCH ×3 (00:31→12:51)
[2022-07-30] MEDS: PANTOPRAZOLE 40 MG TABLET PO SCH (06:46)
--- NOTE | 2022-07-30 08:16 | P.PN ---
Subjective Progress Note Date: 07/30/22 Principal diagnosis: Paroxysmal atrial fibrillation The patient is a pleasant 67-year-old gentleman with known paroxysmal atrial fibrillation status post ablation for her time recently and history of pericardial effusion presented to the hospital complaining of chest discomfort and he was found to be in atrial fibrillation with RVR which is very symptomatic in his case and subsequently he was converted to normal sinus mechanism. He was experiencing pleuritic chest discomfort. He was started on colchicine underwent an echo showed normal right ventricular dimension and systolic function with trivial pericardial effusion. In July 292022 The patient was seen and evaluated. The chest discomfort has improved. He has been maintaining normal sinus mechanism. He is on beta aguilar which has increased yesterday. He is on oral anticoagulation as well. From the cardi ovascular standpoint of view, would continue the current medical regimen and potentially the patient can be discharged home in the next 24 hours. 07/30/2022 The patient was seen and evaluated this morning. He stated that the chest discomfort has improved significantly. No shortness of breath. He is feeling nauseated. He has been maintaining normal sinus mechanism. From a cardiovascular standpoint of view, we will continue the current medical regimen and follow-up with the patient. No need for any further cardiac workup. The examination is remarkable for regular rhythm with clear breathing sounds bilaterally and no lower extremity is edema noted. Assessment Paroxysmal atrial fibrillation fibrillation Pericardial effusion None Continue the current medical regimen Follow-up with the patient Objective - Vital Signs Vital signs: Vital Signs Temp 99.0 F 07/30/22 04:00 Pulse 63 07/30/22 04:00 Resp 16 07/30/22 04:00 BP 136/85 07/30/22 04:00 Pulse Ox 97 07/30/22 04:00 FiO2 Intake & Output 07/29/22 07/30/22 07/30/22 18:59 06:59 18:59 Intake Total 858 540 Balance 858 540 Intake: Oral 858 540 Other: Voiding Method Toilet Toilet # Voids 2 1 - Labs CBC & Chem 7: 07/29/22 07:12 07/29/22 07:12 Labs: Abnormal Lab Results - Last 24 Hours (Table) 07/29/22 Range/Units 07:12 Glucose 101 H (74-99) mg/dL Calcium 8.3 L (8.4-10.2) mg/dL
[2022-07-30] MEDS: METOPROLOL SUCCINATE (ER) 100 MG TAB.ER.24H PO SCH (09:01)
[2022-07-30] MEDS: APIXABAN 5 MG TAB PO SCH (09:01)
[2022-07-30] MEDS: COLCHICINE 0.6 MG EACH PO SCH (09:01)
[2022-07-30 09:09] VITALS: BP 135/90; PULSE 73; TEMP 98
--- NOTE | 2022-07-30 12:07 | P.DS ---
Providers Date of admission: 07/27/22 20:28 Attending physician: Roel Green MD Consults: 07/27/22 20:28 Consult Physician Urgent Consulting Provider: [facility] Consult Reason/Comments: A. fib with rapid ventricular response Do you want consulting provider notified?: Yes Primary care physician: Christ[facility] Hospital Course: Discharge Diagnosis: A. fib with RVR; now in normal sinus rhythm Status post recent cardiac ablation that was done outpatient and complicated by pericardial effusion and pericarditis Type II TN secondary to A. fib with RVR Pericardial effusion Pericarditis Hospital Course: Patient is a 67-year-old male with a past medical history of A. fib status post ablation 3 days ago that was complicated by pericardial effusion and pericarditis. Patient was placed on colchicine and sent home. Patient states that after discharge he started having palpitations and chest discomfort and shortness of breath. Patient then called EMS who brought patient to our facility. In the ED patient was in A. fib with RVR. He was started on Cardizem drip. Patient was also restarted on his home dose metoprolol 50 mg daily. Patient then spontaneously converted to normal sinus rhythm. He was weaned off the Cardizem drip. Patient also resume his home dose of Eliquis. Patient was seen by cardiology the following day. Cardiology increased his metoprolol to 100 mg daily. Patient also started on IV Toradol for his pericarditis in addition to his colchicine. At the time of discharge patient's heart rate was controlled for over 48 hours on oral medications. Patient also reported that his chest pain was improving. Patient had a 2-D echocardiogram that showed small pericardial effusion. I reviewed his echocardiogram from [facility] that showed small to moderate pericardial effusion. I will also discharge the patient ibuprofen 400 mg 3 times a day for 7 days. Patient instructed to follow-up with his director dietetics department. Patient seen and examined at bedside on 07/30/2022.[] Vital signs reviewed and stable. General: [non toxic], [no distress], [appears at stated age] Derm: [warm], [dry] Head: [atraumatic], [normocephalic], [symmetric] Eyes: [EOMI], [no lid lag], [anicteric sclera] Mouth: [no lip lesion], [mucus membranes moist] Cardiovascular: [S1S2 reg], [no murmur], [positive posterior tibial pulse bilateral], Lungs: [CTA bilateral], [no rhonchi, no rales] , [no accessory muscle use] Abdominal: [soft], [ nontender to palpation], [no guarding], [no appreciable organomegaly] Ext: [no gross muscle atrophy], [no edema], [no contractures] Neuro: [ CN II-XI grossly intact], [no focal neuro deficits] Psych: [Alert], [oriented], [appropriate affect] A total of [33] minutes of time were spent preparing this complex discharge summary . Patient Condition at Discharge: Stable Plan - Discharge Summary Discharge Rx Participant: No New Discharge Prescriptions: New Apixaban [Eliquis] 5 mg PO BID 30 Days #0 tab Metoprolol Succinate (ER) [Toprol XL] 100 mg PO DAILY 30 Days #30 tab Ibuprofen [Advil] 400 mg PO Q8H #21 tab Colchicine [Colcrys] 0.6 mg PO BID each Continue Simvastatin [Zocor] 20 mg PO HS Aspirin 81 mg PO DAILY 30 Days #30 tab Omeprazole 20 mg PO BID Discontinued Metoprolol Succinate (ER) [Toprol XL] 50 mg PO BID 30 Days #60 tab Discharge Medication List Simvastatin [Zocor] 20 mg PO HS 04/18/22 [History] Aspirin 81 mg PO DAILY 30 Days #30 tab 04/19/22 [Rx] Omeprazole 20 mg PO BID 07/27/22 [History] Apixaban [Eliquis] 5 mg PO BID 30 Days #0 tab 07/30/22 [Rx] Colchicine [Colcrys] 0.6 mg PO BID each 07/30/22 [Rx] Ibuprofen [Advil] 400 mg PO Q8H #21 tab 07/30/22 [Rx] Metoprolol Succinate (ER) [Toprol XL] 100 mg PO DAILY 30 Days #30 tab 07/30/22 [Rx] Follow up Appointment(s)/Referral(s): Mikhail Carrillo MD [STAFF PHYSICIAN] - 1 Week None,Stated [REFERRING] - 1-2 days Discharge Disposition: HOME SELF-CARE
== END 2022-07-30 13:23 | disposition home or self-care (01) ==
LOC: EC 16:36 → 3SCARD 20:28 → INTOOBSV 20:28 → 3SCARD 07-28 13:38 → UNDODISIN 07-30 13:23
PROVIDERS: ADMIT Internal Medicine; ATTEND Internal Medicine
DX: I48.0 Paroxysmal atrial fibrillation (principal); I21.A1 Myocardial infarction type 2; R77.8 Other specified abnormalities of plasma proteins; E78.5 Hyperlipidemia, unspecified; I31.39 Other pericardial effusion (noninflammatory); Z79.899 Other long term (current) drug therapy; Z79.01 Long term (current) use of anticoagulants; Z79.82 Long term (current) use of aspirin
CPT/HCPCS: 96376 ×4; 96365; 96366 ×2; 96375; 99291; 36415; 94760 ×2; 93005 ×2; 93308; 83880; 80061; 80053; 80048; 83605; 83735; 84484; 85025 ×2; 85610; 85730; 71046; G0378 ×4; J2060; J1885 ×3; J1170

== ENCOUNTER 2022-09-21 04:14 | Inpatient (IN) | payer MEDICARE ==
[2022-09-21] MEDS ORDERED: DILTIAZEM DRIP BOLUS FROM BAG 1 MG SOLN IV ONE (04:37)
[2022-09-21] MEDS ORDERED: DILTIAZEM 125 MG in SODIUM CHLORIDE 0.9% 100 ML IV SCH (04:45)
--- NOTE | 2022-09-21 05:12 | ED ---
General Adult HPI - General Chief complaint: Chest Pain Stated complaint: Chest Pain, SOB Time Seen by Provider: 09/21/22 04:20 Source: patient, RN notes reviewed, old records reviewed Mode of arrival: ambulatory Limitations: no limitations - History of Present Illness Initial comments: 67-year-old male history of atrophic fibrillation presents for evaluation of palpitations and chest pain. Patient's symptoms had begun prior to arrival. He did take an additional dose of metoprolol which she is instructed to by his operations inspector. This did not improve his symptoms. He denies fever or cough. He does report mild dyspnea. - Related Data Home Medications Medication Instructions Recorded Confirmed Simvastatin [Zocor] 20 mg PO HS 04/18/22 07/27/22 Omeprazole 20 mg PO BID 07/27/22 07/27/22 Previous Rx's Medication Instructions Recorded Aspirin 81 mg PO DAILY 30 Days #30 tab 04/19/22 Apixaban [Eliquis] 5 mg PO BID 30 Days #0 tab 07/30/22 Colchicine [Colcrys] 0.6 mg PO BID each 07/30/22 Ibuprofen [Advil] 400 mg PO Q8H #21 tab 07/30/22 Metoprolol Succinate (ER) [Toprol 100 mg PO DAILY 30 Days #30 tab 07/30/22 XL] Allergies Allergy/AdvReac Type Severity Reaction Status Date / Time No Known Allergies Allergy Verified 09/21/22 04:20 Review of Systems ROS Statement: Those systems with pertinent positive or pertinent negative responses have been documented in the HPI. ROS Other: All systems not noted in ROS Statement are negative. Past Medical History Past Medical History: Atrial Fibrillation Additional Past Medical History / Comment(s): atrial fib, neck pain, closed head injury History of Any Multi-Drug Resistant Organisms: None Reported Past Surgical History: Cardiac Ablation, Orthopedic Surgery Additional Past Surgical History / Comment(s): cardiac ablation x3 Past Anesthesia/Blood Transfusion Reactions: No Reported Reaction Past Psychological History: No Psychological Hx Reported Smoking Status: Never smoker Past Alcohol Use History: None Reported Past Drug Use History: None Reported General Exam Limitations: no limitations General appearance: alert, in no apparent distress Head exam: Present: atraumatic, normocephalic Eye exam: Present: normal appearance, PERRL ENT exam: Present: normal exam Neck exam: Present: normal inspection. Absent: tenderness, meningismus Respiratory exam: Present: normal lung sounds bilaterally. Absent: respiratory distress, wheezes Cardiovascular Exam: Present: tachycardia, irregular rhythm GI/Abdominal exam: Present: soft. Absent: distended, tenderness Extremities exam: Present: normal inspection, normal capillary refill. Absent: pedal edema Neurological exam: Present: alert, oriented X3, CN II-XII intact. Absent: motor sensory deficit Psychiatric exam: Present: normal affect, normal mood Skin exam: Present: warm, dry, intact. Absent: cyanosis, diaphoretic Course Vital Signs 09/21/22 09/21/22 09/21/22 04:20 05:03 05:05 Temperature 98.4 F Pulse Rate 176 H 179 H 172 H Respiratory 18 24 22 Rate Blood Pressure 119/78 98/69 O2 Sat by Pulse 98 97 99 Oximetry 09/21/22 09/21/22 09/21/22 05:10 05:15 05:20 Temperature Pulse Rate 146 H 168 H 186 H Respiratory 22 24 22 Rate Blood Pressure 103/71 115/82 120/78 O2 Sat by Pulse 97 95 100 Oximetry 09/21/22 09/21/22 09/21/22 05:25 05:35 05:40 Temperature Pulse Rate 156 H 172 H Respiratory 22 22 Rate Blood Pressure 125/92 112/80 101/82 O2 Sat by Pulse 95 Oximetry 09/21/22 09/21/22 09/21/22 05:45 05:55 06:00 Temperature Pulse Rate 158 H 168 H 144 H Respiratory 22 Rate Blood Pressure 86/72 119/83 100/78 O2 Sat by Pulse 96 Oximetry 09/21/22 09/21/22 09/21/22 06:05 06:10 06:15 Temperature Pulse Rate 176 H 149 H 75 Respiratory 24 Rate Blood Pressure 61/36 122/86 107/81 O2 Sat by Pulse 94 L 94 L Oximetry 09/21/22 06:20 Temperature Pulse Rate 68 Respiratory Rate Blood Pressure 106/83 O2 Sat by Pulse 95 Oximetry Medical Decision Making - Medical Decision Making Was pt. sent in by a medical professional or institution (, PA, TELEGRAPH OFFICE ROUTE AIDE, urgent care, hospital, or long term...) When possible be specific @ -No Did you speak to anyone other than the patient for history (EMS, parent, family, police, friend...)? What history was obtained from this source @ -No Did you review nursing and triage notes (agree or disagree)? Why? @ -I reviewed and agree with nursing and triage notes Were old charts reviewed (outside hosp., previous admission, EMS record, old EKG, old radiological studies, urgent care reports/EKG's, long term records)? Report findings @ -No old charts were reviewed Differential Diagnosis (chest pain, altered mental status, abdominal pain women, abdominal pain men, vaginal bleeding, weakness, fever, dyspnea, syncope, headache, dizziness, GI bleed, back pain, seizure, CVA, palpatations, mental health, musculoskeletal)? @ -[Differential Palpitations Ventricular arrhythmias, atrial arrhythmias, myocardial infarction, anemia, thyrotoxicosis, electrolyte imbalance, hypokalemia, pulmonary embolism, pulmonary disease, drugs, alcohol, anxiety, stress.... This is not meant to be an all-inclusive list. EKG interpreted by me (3pts min.). @ Atrial fibrillation with rapid ventricular response, rate of 164, QRS duration 82, QTC 378, no ST segment elevation. X-rays interpreted by me (1pt min.). @ -[Chest x-ray no focal pneumonia or pneumothorax. CT interpreted by me (1pt min.). @ -None done U/S interpreted by me (1pt. min.). @ -None done What testing was considered but not performed or refused? (CT, X-rays, U/S, labs)? Why? @ -None What meds were considered but not given or refused? Why? @ -None Did you discuss the management of the patient with other professionals (professionals i.e. , PA, TELEGRAPH OFFICE ROUTE AIDE, lab, RT, psych nurse, director of social services, scraper loader operator, teacher, chief data officer, case packer and sealer)? Give summary @ -[Sound physician group Was smoking cessation discussed for >3mins.? @ -No Was critical care preformed (if so, how long)? @ -[Yes, 35 minutes Were there social determinants of health that impacted care today? How? (Homelessness, low income, unemployed, alcoholism, drug addiction, transportation, low edu. Level, literacy, decrease access to med. care, penitentiary, rehab)? @ -No Was there de-escalation of care discussed even if they declined (Discuss DNR or withdrawal of care, Hospice)? DNR status @ -No What co-morbidities impacted this encounter? (DM, HTN, Smoking, COPD, CAD, Cancer, CVA, ARF, Chemo, Hep., AIDS, mental health diagnosis, sleep apnea, morbid obesity)? @ -[Atrial fibrillation Was patient admitted / discharged? Hospital course, mention meds given and route, prescriptions, significant lab abnormalities, going to OR and other pertinent info. @ -[67-year-old male with chest pain, rapid atrial fibrillation between 160 and 200 upon arrival. Patient started on Cardizem in emergency prompt. He has normal CBC, normal CPK, negative initial troponin. He will be observed for rate control, telemetry, cardiology consultation and serial cardiac enzymes. Undiagnosed new problem with uncertain prognosis? @ -No Drug Therapy requiring intensive monitoring for toxicity (Heparin, Nitro, Insulin, Cardizem)? @ -No Were any procedures done? @ -No Diagnosis/symptom? @ -[Atrial fibrillation with rapid ventricular response, chest pain Acute, or Chronic, or Acute on Chronic? @ -[Acute Uncomplicated (without systemic symptoms) or Complicated (systemic symptoms)? @ -Complicated Exacerbation, Progression, or Severe Exacerbation? @ -No Poses a threat to life or bodily function? How? (Chest pain, [place], AL, pneumonia, PE, COPD, DKA, ARF, appy, cholecystitis, CVA, Diverticulitis, Homicidal, Suicidal, threat to staff... and all critical care pts) @ -[Yes, arrhythmia, chest pain - Lab Data Result diagrams: 09/21/22 05:20 09/21/22 05:11 Lab Results 09/21/22 09/21/22 09/21/22 Range/Units 05:11 05:11 05:20 WBC 8.0 (3.8-10.6) k/uL RBC 4.73 (4.30-5.90) m/uL Hgb 16.0 (13.0-17.5) gm/dL Hct 44.7 (39.0-53.0) % MCV 94.5 (80.0-100.0) fL MCH 33.9 (25.0-35.0) pg MCHC 35.9 (31.0-37.0) g/dL RDW 13.0 (11.5-15.5) % Plt Count 223 (150-450) k/uL MPV 7.8 Neutrophils % 55 % Lymphocytes % 33 % Monocytes % 7 % Eosinophils % 4 % Basophils % 1 % Neutrophils # 4.4 (1.3-7.7) k/uL Lymphocytes # 2.6 (1.0-4.8) k/uL Monocytes # 0.5 (0-1.0) k/uL Eosinophils # 0.3 (0-0.7) k/uL Basophils # 0.1 (0-0.2) k/uL PT (9.0-12.0) sec INR (<1.2) APTT (22.0-30.0) sec Sodium 136 L (137-145) mmol/L Potassium 3.9 (3.5-5.1) mmol/L Chloride 107 (98-107) mmol/L Carbon Dioxide 18 L (22-30) mmol/L Anion Gap 11 mmol/L BUN 19 (9-20) mg/dL Creatinine 1.04 (0.66-1.25) mg/dL Est GFR (CKD-EPI)AfAm 87 (>60 ml/min/1.73 sqM) Est GFR (CKD-EPI)NonAf 75 (>60 ml/min/1.73 sqM) Glucose 139 H (74-99) mg/dL Calcium 9.8 (8.4-10.2) mg/dL Magnesium 2.0 (1.6-2.3) mg/dL Total Bilirubin 0.6 (0.2-1.3) mg/dL AST 33 (17-59) U/L ALT 28 (4-49) U/L Alkaline Phosphatase 79 (38-126) U/L Troponin I 0.013 (0.000-0.034) ng/mL Total Protein 6.9 (6.3-8.2) g/dL Albumin 4.1 (3.5-5.0) g/dL TSH 4.450 (0.465-4.680) mIU/L 09/21/22 Range/Units 06:00 WBC (3.8-10.6) k/uL RBC (4.30-5.90) m/uL Hgb (13.0-17.5) gm/dL Hct (39.0-53.0) % MCV (80.0-100.0) fL MCH (25.0-35.0) pg MCHC (31.0-37.0) g/dL RDW (11.5-15.5) % Plt Count (150-450) k/uL MPV Neutrophils % % Lymphocytes % % Monocytes % % Eosinophils % % Basophils % % Neutrophils # (1.3-7.7) k/uL Lymphocytes # (1.0-4.8) k/uL Monocytes # (0-1.0) k/uL Eosinophils # (0-0.7) k/uL Basophils # (0-0.2) k/uL PT 9.8 (9.0-12.0) sec INR 0.9 (<1.2) APTT 24.4 (22.0-30.0) sec Sodium (137-145) mmol/L Potassium (3.5-5.1) mmol/L Chloride (98-107) mmol/L Carbon Dioxide (22-30) mmol/L Anion Gap mmol/L BUN (9-20) mg/dL Creatinine (0.66-1.25) mg/dL Est GFR (CKD-EPI)AfAm (>60 ml/min/1.73 sqM) Est GFR (CKD-EPI)NonAf (>60 ml/min/1.73 sqM) Glucose (74-99) mg/dL Calcium (8.4-10.2) mg/dL Magnesium (1.6-2.3) mg/dL Total Bilirubin (0.2-1.3) mg/dL AST (17-59) U/L ALT (4-49) U/L Alkaline Phosphatase (38-126) U/L Troponin I (0.000-0.034) ng/mL Total Protein (6.3-8.2) g/dL Albumin (3.5-5.0) g/dL TSH (0.465-4.680) mIU/L Critical Care Time Critical Care Time: Yes Total Critical Care Time: 35 Disposition Clinical Impression: Atrial fibrillation with RVR, Chest pain Disposition: ADMITTED IP TO THIS HOSP Condition: Stable Is patient prescribed a controlled substance at d/c from ED?: No Time of Disposition: 06:26
[2022-09-21 05:35] LABS: Basophils # (A) 0.1 k/uL (0-0.2); Basophils % (A) 1 %; Eosinophils # (A) 0.3 k/uL (0-0.7); Eosinophils % (A) 4 %; HCT 44.7 % (39.0-53.0); Lymphocytes # (A) 2.6 k/uL (1.0-4.8); Lymphocytes % (A) 33 %; MCH 33.9 pg (25.0-35.0); MCHC 35.9 g/dL (31.0-37.0); MCV 94.5 fL (80.0-100.0); Mean Platelet Volume 7.8; Monocytes # (A) 0.5 k/uL (0-1.0); Monocytes % (A) 7 %; Neutrophils # (A) 4.4 k/uL (1.3-7.7); Neutrophils % (A) 55 %; Platelet Count 223 k/uL (150-450); RBC 4.73 m/uL (4.30-5.90)
[2022-09-21 05:47] LABS: ALT 28 U/L (4-49); AST 33 U/L (17-59); African American GFR (CKD) 87 (>60 ml/min/1.73 sqM); Albumin 4.1 g/dL (3.5-5.0); Alkaline Phosphatase 79 U/L (38-126); Anion Gap 11 mmol/L; Blood Urea Nitrogen 19 mg/dL (9-20); Calcium 9.8 mg/dL (8.4-10.2); Carbon Dioxide 18 mmol/L (22-30); Chloride 107 mmol/L (98-107); Glucose 139 mg/dL (74-99); Non-African American GFR(CKD) 75 (>60 ml/min/1.73 sqM); Potassium 3.9 mmol/L (3.5-5.1); Sodium 136 mmol/L (137-145); Total Bilirubin 0.6 mg/dL (0.2-1.3); Total Protein 6.9 g/dL (6.3-8.2)
[2022-09-21] MEDS ORDERED: NALOXONE 0.4 MG/ML 1 ML VIAL IV PRN (06:19)
[2022-09-21 06:29] LABS: INR 0.9 (<1.2); Partial Thromboplastin Time 24.4 sec (22.0-30.0); Prothrombin Time 9.8 sec (9.0-12.0)
--- NOTE | 2022-09-21 06:46 | XR ---
EXAMINATION TYPE: XR chest 2V DATE OF EXAM: 09/21/2022 5:33 AM COMPARISON: Chest radiographs from 07/27/2022 TECHNIQUE: XR chest 2V Frontal and lateral views of the chest. CLINICAL INDICATION:Male, 67 years old with history of Chest Pain; FINDINGS: Lungs/Pleura: There is no evidence of pleural effusion, focal consolidation, or pneumothorax. Pulmonary vascularity: Unremarkable. Heart/mediastinum: Cardiomediastinal silhouette is unremarkable. Musculoskeletal: No acute osseous pathology. IMPRESSION: No acute cardiopulmonary disease/process.
[2022-09-21] MEDS: ACETAMINOPHEN TAB 325 MG TAB PO PRN ×2 (09:56→19:53)
[2022-09-21] MEDS ORDERED: METOPROLOL SUCCINATE (ER) 25 MG TAB.ER.24H PO STA (10:56)
--- NOTE | 2022-09-21 11:43 | P.PN ---
Progress Note - Text Patient admitted with symptomatic paroxysmal atrial fibrillation with RVR despite metoprolol 50 mg twice daily, long-acting He has had 3 A. fib ablations He is back in sinus rhythm now. In sinus rhythm is 12-lead EKG shows sinus mechanism normal TN interval evidence of LVH with T-wave inversions V2-V6 and T-wave inversions in the high lateral leads Biphasic T waves in the inferior leads Deep T-wave inversions are noted in the lateral precordial leads His twelve-lead EKG is consistent with apical hypertrophy Post ablation in July he had pericarditis with small pericardial effusion which was treated with colchicine Unfortunately this breakthrough episode of atrial fibrillation was also disorganized A. fib rather than an atrial tachycardia, at least on twelve-lead EKG Impression Paroxysmal atrial fibrillation refractory to 3 A. 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 fib management include and treatment drug therapy If he does have apical hypertrophy, then unfortunately amiodarone may be his only option The other option is a dual-chamber device with maximization of beta aguilar therapy, if he has severe bradycardia on high dose beta blockers
--- NOTE | 2022-09-21 13:05 | P.CRDCN ---
History of Present Illness History of present illness: HISTORY OF PRESENT ILLNESS: This is a 67 year old male with a past medical history significant for hyperlipidemia and paroxysmal atrial fibrillation with previous ablation 3, pericarditis post-ablation, and pericardial effusion. Patient's last ablation was in July 2022. Patient follows with Dr. García as his primary metal pattern maker. We have been asked to see the patient in consultation for A. fib with RVR. Patient examined at the bedside in the emergency room. Patient presented to the hospital for chief complaint of palpitations. Patient was found to be in A. fib with RVR. He received a Cardizem bolus and converted to sinus mechanism. He is maintaining sinus mechanism at the time of examination. * EKG reveals atrial fibrillation with RVR. Repeat EKG reveals sinus mechanism with biphasic T waves in inferior leads, and T-wave inversions and high lateral leads and deep T-wave inversions in V3V6. * Chest xray negative for acute process * Laboratory data: WBC 8.0. Hemoglobin 16.0. Platelet count 223. Sodium 136. Potassium 3.9. BUN 19. Creatinine 1.04. Troponin 0.013. 0.332. * Current home cardiac medications include Eliquis 5mg BID, metoprolol succinate 50 mg twice a day, and some chest and 29 g at night * Most recent echocardiogram obtained in July 2022 revealed ejection fraction 55-60% with minimal pericardial effusion REVIEW OF SYSTEMS: At the time of my exam: CONSTITUTIONAL: Denies fever or chills. HEENT: Denies blurred vision, vision changes, or eye pain. Denies hemoptysis CARDIOVASCULAR: Denies chest pain. Denies orthopnea. Denies PND. Denies palpitations RESPIRATORY: Denies shortness of breath. GASTROINTESTINAL: Denies abdominal pain. Denies nausea or vomiting. HEMATOLOGIC: Denies bleeding disorders. GENITOURINARY: Denies any blood in urine. SKIN: Denies pruitis. Denies rash. PHYSICAL EXAM: VITAL SIGNS: Reviewed. GENERAL: Well-developed in no acute distress. HEENT: Head is normocephalic. Pupils are equal, round. Sclerae anicteric. Mucous membranes of the mouth are moist. Neck supple. No JVD or thyromegaly LUNGS: Respirations even and unlabored. Lungs essentially clear to auscultation bilaterally. HEART: Regular rate and rhythm. S1 and S2 heard. ABDOMEN: Soft. Nondistended. Nontender. EXTREMITIES: Normal range of motion. No clubbing or cyanosis. Peripheral pulses intact. No lower extremity edema NEUROLOGIC: Awake and alert. Oriented x 3. ASSESSMENT: Palpitations Paroxysmal atrial fibrillation History of A. 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 Pending results of MRI, amiodarone may be his only option for antiarrhythmic therapy Continue telemetry monitoring Further recommendations pending patient's course Nurse practitioner note has been reviewed by physician. Signing provider agrees with the documented findings, assessment, and plan of care. Past Medical History Past Medical History: Atrial Fibrillation Additional Past Medical History / Comment(s): atrial fib, neck pain, closed head injury History of Any Multi-Drug Resistant Organisms: None Reported Past Surgical History: Cardiac Ablation, Orthopedic Surgery Additional Past Surgical History / Comment(s): cardiac ablation x3 Past Anesthesia/Blood Transfusion Reactions: No Reported Reaction Past Psychological History: No Psychological Hx Reported Smoking Status: Never smoker Past Alcohol Use History: None Reported Past Drug Use History: None Reported Medications and Allergies Home Medications Medication Instructions Recorded Confirmed Type Simvastatin [Zocor] 20 mg PO HS 04/18/22 09/21/22 History Apixaban [Eliquis] 5 mg PO BID 30 Days #0 tab 07/30/22 09/21/22 Rx Metoprolol Succinate (ER) [Toprol 50 mg PO BID 09/21/22 09/21/22 History Xl] Allergies Allergy/AdvReac Type Severity Reaction Status Date / Time No Known Allergies Allergy Verified 09/21/22 09:36 Physical Exam Vitals: Vital Signs Temp Pulse Resp BP Pulse Ox 09/21/22 09:00 59 L 20 90/52 95 09/21/22 08:30 53 L 24 103/76 93 L 09/21/22 08:00 57 L 16 106/71 97 09/21/22 07:30 61 22 113/74 95 09/21/22 07:00 64 18 107/77 94 L 09/21/22 06:20 68 106/83 95 09/21/22 06:15 75 24 107/81 94 L 09/21/22 06:10 149 H 122/86 09/21/22 06:05 176 H 61/36 94 L 09/21/22 06:00 144 H 100/78 09/21/22 05:55 168 H 119/83 09/21/22 05:45 158 H 22 86/72 96 09/21/22 05:40 172 H 22 101/82 09/21/22 05:35 156 H 22 112/80 95 09/21/22 05:25 125/92 09/21/22 05:20 186 H 22 120/78 100 09/21/22 05:15 168 H 24 115/82 95 09/21/22 05:10 146 H 22 103/71 97 09/21/22 05:05 172 H 22 98/69 99 09/21/22 05:03 179 H 24 97 09/21/22 04:20 98.4 F 176 H 18 119/78 98 Intake and Output 09/20/22 09/21/22 09/21/22 22:59 06:59 14:59 Other: Weight 92.986 kg Results 09/21/22 05:20 09/21/22 05:11 Cardiac Enzymes 09/21/22 09/21/22 09/21/22 Range/Units 05:11 05:11 09:31 AST 33 (17-59) U/L Troponin I 0.013 0.332 H* (0.000-0.034) ng/mL Coagulation 09/21/22 Range/Units 06:00 PT 9.8 (9.0-12.0) sec APTT 24.4 (22.0-30.0) sec CBC 09/21/22 Range/Units 05:20 WBC 8.0 (3.8-10.6) k/uL RBC 4.73 (4.30-5.90) m/uL Hgb 16.0 (13.0-17.5) gm/dL Hct 44.7 (39.0-53.0) % Plt Count 223 (150-450) k/uL Comprehensive Metabolic Panel 09/21/22 Range/Units 05:11 Sodium 136 L (137-145) mmol/L Potassium 3.9 (3.5-5.1) mmol/L Chloride 107 (98-107) mmol/L Carbon Dioxide 18 L (22-30) mmol/L BUN 19 (9-20) mg/dL Creatinine 1.04 (0.66-1.25) mg/dL Glucose 139 H (74-99) mg/dL Calcium 9.8 (8.4-10.2) mg/dL AST 33 (17-59) U/L ALT 28 (4-49) U/L Alkaline Phosphatase 79 (38-126) U/L Total Protein 6.9 (6.3-8.2) g/dL Albumin 4.1 (3.5-5.0) g/dL Current Medications Generic Name Dose Route Start Last Admin Trade Name Freq PRN Reason Stop Dose Admin Acetaminophen 650 mg 09/21/22 06:19 09/21/22 09:56 Acetaminophen Tab 325 Mg Tab PO 650 mg Q6HR PRN Administration Mild Pain or Fever > 100.5 Apixaban 5 mg 09/21/22 21:00 Apixaban 5 Mg Tab PO BID [facility] Protocol Atorvastatin Calcium 10 mg 09/21/22 21:00 Atorvastatin 10 Mg Tab PO HS [facility] Metoprolol Succinate 50 mg 09/21/22 21:00 Metoprolol Succinate (Er) 50 Mg Tab.Er.24h PO BID [facility] Naloxone HCl 0.2 mg 09/21/22 06:19 Naloxone 0.4 Mg/Ml 1 Ml Vial IV Q2M PRN Opioid Reversal Intake and Output 09/20/22 09/21/22 09/21/22 22:59 06:59 14:59 Other: Weight 92.986 kg 09/21/22 05:20 09/21/22 05:11
--- NOTE | 2022-09-21 13:16 | P.HPIM ---
History of Present Illness H&P Date: 09/21/22 Patient is a 57-year-old male with history of atrial fibrillation on Eliquis, multiple past ablations, dyslipidemia presenting with chest pain and palpitations. He claims that his started yesterday without any changes. He Gets Atrial fibrillation with RVR episodes frequently, and none of the medical therapies or ablations in the past has worked. He sees [facility] applications analyst outside of [place]. Currently denies any chest pain, shortness of breath, abdominal pain, nausea, vomiting, diarrhea, constipation, or urinary complaints. In the ED, initial heart rate was 176, pulse 119/78. Chest x-ray showed no acute process. Initial EKG shows atrial fibrillation with RVR and PVCs. P atient was started on Cardizem drip, converted to sinus rhythm. Repeat EKG interpreted by me shows sinus rhythm with T-wave inversions in lateral and inferior leads, nonspecific ST-T wave changes. Cardiology consulted. Patient admitted for paroxysmal atrial fibrillation with RVR. Pertinent positives and negatives as discussed in HPI, a complete review of systems was performed and all other systems are negative. Patient seen and examined at bedside. Vital signs reviewed General: nontoxic, no distress, appears at stated age Derm: warm, dry Head: atraumatic, normocephalic, symmetric Eyes: EOMI, no lid lag, anicteric sclera, pupils equal round reactive to light ENT: Nose and ears atraumatic Neck: No thyromegaly, supple Mouth: no lip lesion, mucus membranes moist Cardiovascular: S1S2 reg, no murmur, no edema Lungs: clear to auscultation bilateral, no rhonchi, no rales, no wheeze, no accessory muscle use Abdominal: soft, nontender to palpation, no guarding, no appreciable organom egaly Ext: no gross muscle atrophy, muscle strength muscle strength 5 out of 5 in all 4 extremities, no contractures Neuro: CN II-XII grossly intact Psych: Alert, oriented, appropriate affect Assessment/Plan: Paroxysmal atrial fibrillation with RVR Dyslipidemia Headache -Restarted on home Eliquis, metoprolol increased to 75 twice a day -Cardiology note reviewed, may need amiodarone -Outpatient records pending -Continue statin -Telemetry -Chest pain-free The patient is admitted with an anticipated greater than 2 midnight stay as inpatient status for evaluation of atrial fibrillation with RVR. Surrogate decision-maker: Sibling CODE STATUS: Full code DVT prophylaxis: Eliquis Anticipated discharge date: 1-[address]: Home A total of 55 minutes was spent on the care of this complex patient more than 50% of the time was spent in counseling and care coordination. Past Medical History Past Medical History: Atrial Fibrillation Additional Past Medical History / Comment(s): atrial fib, neck pain, closed head injury History of Any Multi-Drug Resistant Organisms: None Reported Past Surgical History: Cardiac Ablation, Orthopedic Surgery Additional Past Surgical History / Comment(s): cardiac ablation x3 Past Anesthesia/Blood Transfusion Reactions: No Reported Reaction Past Psychological History: No Psychological Hx Reported Smoking Status: Never smoker Past Alcohol Use History: None Reported Past Drug Use History: None Reported Medications and Allergies Home Medications Medication Instructions Recorded Confirmed Type Simvastatin [Zocor] 20 mg PO HS 04/18/22 09/21/22 History Apixaban [Eliquis] 5 mg PO BID 30 Days #0 tab 07/30/22 09/21/22 Rx Metoprolol Succinate (ER) [Toprol 50 mg PO BID 09/21/22 09/21/22 History Xl] Allergies Allergy/AdvReac Type Severity Reaction Status Date / Time No Known Allergies Allergy Verified 09/21/22 09:36 Physical Exam Vitals: Vital Signs Temp Pulse Resp BP Pulse Ox 09/21/22 13:08 58 L 16 101/71 97 09/21/22 11:22 63 16 132/87 96 09/21/22 09:00 59 L 20 90/52 95 09/21/22 08:30 53 L 24 103/76 93 L 09/21/22 08:00 57 L 16 106/71 97 09/21/22 07:30 61 22 113/74 95 09/21/22 07:00 64 18 107/77 94 L 09/21/22 06:20 68 106/83 95 09/21/22 06:15 75 24 107/81 94 L 09/21/22 06:10 149 H 122/86 09/21/22 06:05 176 H 61/36 94 L 09/21/22 06:00 144 H 100/78 09/21/22 05:55 168 H 119/83 09/21/22 05:45 158 H 22 86/72 96 09/21/22 05:40 172 H 22 101/82 09/21/22 05:35 156 H 22 112/80 95 09/21/22 05:25 125/92 09/21/22 05:20 186 H 22 120/78 100 09/21/22 05:15 168 H 24 115/82 95 09/21/22 05:10 146 H 22 103/71 97 09/21/22 05:05 172 H 22 98/69 99 09/21/22 05:03 179 H 24 97 09/21/22 04:20 98.4 F 176 H 18 119/78 98 Intake and Output 09/20/22 09/21/22 09/21/22 22:59 06:59 14:59 Other: Weight 92.986 kg Results CBC & Chem 7: 09/21/22 05:20 09/21/22 05:11 Labs: Abnormal Lab Results - Last 24 Hours (Table) 09/21/22 09/21/22 09/21/22 Range/Units 05:11 09:31 12:22 Sodium 136 L (137-145) mmol/L Carbon Dioxide 18 L (22-30) mmol/L Glucose 139 H (74-99) mg/dL Troponin I 0.332 H* 0.786 H* (0.000-0.034) ng/mL
[2022-09-21] MEDS: APIXABAN 5 MG TAB PO SCH (19:50)
[2022-09-21] MEDS: METOPROLOL SUCCINATE (ER) 25 MG TAB.ER.24H PO SCH (19:50)
[2022-09-21] MEDS ORDERED: METOPROLOL SUCCINATE (ER) 50 MG TAB.ER.24H PO SCH (21:00)
[2022-09-21] MEDS ORDERED: ATORVASTATIN 10 MG TAB PO SCH (21:00)
[2022-09-22 09:08] VITALS: RESP 17
[2022-09-22] MEDS: APIXABAN 5 MG TAB PO SCH (09:10)
[2022-09-22] MEDS: METOPROLOL SUCCINATE (ER) 25 MG TAB.ER.24H PO SCH (09:10)
--- NOTE | 2022-09-22 11:19 | P.PN ---
Subjective HISTORY OF PRESENT ILLNESS: This is a 67 year old male with a past medical history significant for hyperlipidemia and paroxysmal atrial fibrillation with previous ablation 3, pericarditis post-ablation, and pericardial effusion. Patient's last ablation was in July 2022. Patient follows with Dr. García as his primary record clerk. We have been asked to see the patient in consultation for A. fib with RVR. Patient examined at the bedside in the emergency room. Patient presented to the hospital for chief complaint of palpitations. Patient was found to be in A. fib with RVR. He received a Cardizem bolus and converted to sinus mechanism. He is maintaining sinus mechanism at the time of examination. * EKG reveals atrial fibrillation with RVR. Repeat EKG reveals sinus mechanism with biphasic T waves in inferior leads, and T-wave inversions and high lateral leads and deep T-wave inversions in V3V6. * Chest xray negative for acute process * Laboratory data: WBC 8.0. Hemoglobin 16.0. Platelet count 223. Sodium 136. Potassium 3.9. BUN 19. Creatinine 1.04. Troponin 0.013. 0.332. * Current home cardiac medications include Eliquis 5mg BID, metoprolol succinate 50 mg twice a day, and some chest and 29 g at night * Most recent echocardiogram obtained in July 2022 revealed ejection fraction 55-60% with minimal pericardial effusion 09/22/2022 Patient examined this morning at the bedside. Patient denies chest pain or pressure. He denies shortness of breath. Telemetry reveals sinus mechanism. Vital signs are stable. PHYSICAL EXAM: VITAL SIGNS: Reviewed. GENERAL: Well-developed in no acute distress. HEENT: Head is normocephalic. Pupils are equal, round. Sclerae anicteric. Mucous membranes of the mouth are moist. Neck supple. No JVD or thyromegaly LUNGS: Respirations even and unlabored. Lungs essentially clear to auscultation bilaterally. HEART: Regular rate and rhythm. S1 and S2 heard. ABDOMEN: Soft. Nondistended. Nontender. EXTREMITIES: Normal range of motion. No clubbing or cyanosis. Peripheral pulses intact. No lower extremity edema NEUROLOGIC: Awake and alert. Oriented x 3. ASSESSMENT: Palpitations Paroxysmal atrial fibrillation History of A. 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 Martinez discussed multiple options with patient including amiodarone therapy, pacemaker implantation with increased beta blockers, and AV node ablation. Patient is to follow up with his primary rehabilitation caseworker to [facility] to discuss various treatment options for his atrial fibrillation Patient is stable for discharge home today from a cardiac standpoint Nurse practitioner note has been reviewed by physician. Signing provider agrees with the documented findings, assessment, and plan of care. Objective - Vital Signs Vital signs: Vital Signs Temp 98.0 F 09/22/22 08:20 Pulse 59 L 09/22/22 08:20 Resp 17 09/22/22 08:20 BP 125/85 09/22/22 08:20 Pulse Ox 97 09/22/22 08:20 FiO2 Intake & Output 09/21/22 09/22/22 09/22/22 18:59 06:59 18:59 Intake Total 598 480 Balance 598 480 Weight 92.986 kg Intake: Oral 598 480 Other: Voiding Method Toilet Toilet # Voids 1 - Labs CBC & Chem 7: 09/21/22 05:20 09/21/22 05:11 Labs: Abnormal Lab Results - Last 24 Hours (Table) 09/21/22 Range/Units 12:22 Troponin I 0.786 H* (0.000-0.034) ng/mL
--- NOTE | 2022-09-22 11:30 | P.DS ---
Providers Date of admission: 09/21/22 06:20 Expected date of discharge: 09/22/22 Attending physician: Roel Green MD Consults: 09/21/22 06:19 Consult Physician Routine Consulting Provider: Mikhail Carrillo Consult Reason/Comments: A-fib RVR Do you want consulting provider notified?: Yes Primary care physician: [facility] Course: Discharge Diagnosis: Paroxysmal atrial fibrillation with RVR Dyslipidemia Headache Hospital Course: 57-year-old male with history of atrial fibrillation on Eliquis, multiple past ablations, dyslipidemia presenting with chest pain and palpitations. In the ED, initial heart rate was 176, pulse 119/78. Chest x-ray showed no acute process. Initial EKG shows atrial fibrillation with RVR and PVCs. Patient was started on Cardizem drip, converted to sinus rhythm. Repeat EKG interpreted by me shows sinus rhythm with T-wave inversions in lateral and inferior leads, nonspecific ST-T wave changes. Cardiology consulted. Patient admitted for paroxysmal atrial fibrillation with RVR. Metoprolol increased. Remains in sinus. Patient will follow-up with his communication specialist. 57-year-old male with history of atrial fibrillation on Eliquis, multiple past ablations, dyslipidemia presenting with chest pain and palpitations. In the ED, initial heart rate was 176, pulse 119/78. Chest x-ray showed no acute process. Initial EKG shows atrial fibrillation with RVR and PVCs. Patient was started on Cardizem drip, converted to sinus rhythm. Repeat EKG interpreted by me shows sinus rhythm with T-wave inversions in lateral and inferior leads, nonspecific ST-T wave changes. Cardiology consulted. Patient admitted for paroxysmal atrial fibrillation with RVR. Metoprolol increased. Remains in sinus. Patient will follow-up with his communication specialist. Patient seen and examined at bedside. Vital signs reviewed and stable. General: nontoxic, no distress, appears at stated age Derm: warm, dry Head: atraumatic, normocephalic, symmetric Eyes: EOMI, no lid lag, anicteric sclera Mouth: no lip lesion, mucus membranes moist Cardiovascular: S1S2 reg, no murmur Lungs: CTA bilateral, no rhonchi, no rales , no accessory muscle use Abdominal: soft, nontender to palpation, no guarding, no appreciable organomegaly Ext: no gross muscle atrophy, no edema, no contractures Neuro: CN II-XI grossly intact, no focal neuro deficits Psych: Alert, oriented, appropriate affect A total of 33 minutes of time were spent preparing this complex discharge summary. Patient was discharged on 09/22/22 at 11:20. Patient Condition at Discharge: Stable Plan - Discharge Summary Discharge Rx Participant: No New Discharge Prescriptions: New Metoprolol Succinate (ER) [Toprol XL] 75 mg PO BID #60 tab Continue Simvastatin [Zocor] 20 mg PO HS Apixaban [Eliquis] 5 mg PO BID 30 Days #0 tab Discontinued Metoprolol Succinate (ER) [Toprol Xl] 50 mg PO BID Discharge Medication List Simvastatin [Zocor] 20 mg PO HS 04/18/22 [History] Apixaban [Eliquis] 5 mg PO BID 30 Days #0 tab 07/30/22 [Rx] Metoprolol Succinate (ER) [Toprol XL] 75 mg PO BID #60 tab 09/22/22 [Rx] Follow up Appointment(s)/Referral(s): Cholo Quarles DO [REFERRING] - 2 Weeks Christos Darby DO [Primary Care Provider] - 1-2 days (SundayOctober 02, 9:20) Patient Instructions/Handouts: A-fib (Atrial Fibrillation) (DC) Activity/Diet/Wound Care/Special Instructions: Please see your communication specialist. Discharge Disposition: HOME SELF-CARE
[2022-09-22 11:34] VITALS: BP 127/80; PULSE 66; TEMP 98.5
--- NOTE | 2022-09-27 09:27 | CDI ---
Documentation Clarification Form Date: 09/27/2022 09:06:44 AM From: Noelle Monsivais RN, CCDS Email: [email or web address] Admit Date: 09/21/2022 06:20:00 AM Patient Name: Osei Medina Visit Number: [id number] Discharge Date: 09/22/2022 12:08:00 PM ATTENTION: The Clinical Documentation Specialists (CDI) and [facility] Coding Staff appreciate your assistance in clarifying documentation. Please respond to the clarification below the line at the bottom and electronically sign. The CDI & [facility] Coding staff will review the response and follow-up if needed. Please note: Queries are made part of the Legal Health Record. If you have any questions, please contact the author of this message via ITS. Dr. Vish Crews Your patient had a rise in troponin levels and was admitted with paroxysmal atrial fibrillation. Please clarify if there is an additional diagnosis and/or clinical significance related to this value. Patient history/risk factors: paroxysmal atrial fibrillation with previous ablation x3, post-ablation pericarditis and pericardial effusion, HLD. Patient admitted with chest pain, palpitations and SOB. Clinical indicators: 09/21 Troponins: 0.013-0.332-0.786 ED: "palpitations and chest pain. Atrial fibrillation with RVR, Chest pain." H&P: "Initial EKG shows atrial fibrillation with RVR and PVCs. Patient was started on Cardizem drip, converted to sinus rhythm. Repeat EKG shows sinus rhythm with T-wave inversions in lateral and inferior leads, nonspecific ST-T wave changes. 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 09/21 EKG: atrial fibrillation with RVR 09/21 VS: HR [id number]; RR 16-24; BP 61/36-132/87 Treatment: IV Cardizem bolus 5mg x1 on 09/21 followed by Cardizem drip 125mg @5mls/hr; Metoprolol 25mg po x1 on 09/21 then 75mg po BID Is there an additional diagnosis and/or clinical significance related to the above lab result/information: [ x ] Type 2 NM due to paroxysmal atrial fibrillation [ ] No additional diagnosis/Not clinically significant [ ] Other, please specify [ ] Unable to determine MTDD
== END 2022-09-22 12:08 | disposition home or self-care (01) | DRG 282 ==
LOC: EC 04:14 → 3SCARD 06:20
PROVIDERS: ADMIT Internal Medicine; ATTEND Internal Medicine
DX: I48.0 Paroxysmal atrial fibrillation (principal); I21.A1 Myocardial infarction type 2; E78.5 Hyperlipidemia, unspecified; I42.9 Cardiomyopathy, unspecified; Z79.01 Long term (current) use of anticoagulants; Z79.82 Long term (current) use of aspirin; Z79.899 Other long term (current) drug therapy
CPT/HCPCS: 36415; 71046; 80053; 83735; 84443; 84484; 85025; 85610; 85730; 93005; 94760; 96365; 96366; 99291

== ENCOUNTER 2022-09-26 17:23 | Inpatient (IN) | payer MEDICARE ==
--- NOTE | 2022-09-26 17:28 | ED ---
General Adult HPI - General Source: RN notes reviewed <Ericka Moy - Last Filed: 09/26/22 17:27> <Roni Sapp - Last Filed: 09/26/22 20:32> - General Stated complaint: AFib Time Seen by Provider: 09/26/22 17:25 - History of Present Illness Initial comments: 67 year old male presents to the emergency department with a chief complaint of palpitations. Reports sudden onset at approximately 3PM. Admits to chest pain and shortness of breath. I performed the Quick Note portion of this exam: Verbal signature Ericka Moy PA-C (Ericka Moy) This is a 67-year-old male who has a long-standing history of atrial fibrillation. Patient states she's had multiple ablations and none of work. Patient states today about 1:30 he started having chest pain and racing of the chest he became very short of breath. Patient states this feels exactly like his A. fib in the past. Patient denies any recent fevers patient denies any recent illnesses. Patient denies any abdominal pain patient denies any nausea vomiting. Patient denies lightheadedness or dizziness. (Roni Sapp) - Related Data Home Medications Medication Instructions Recorded Confirmed Simvastatin [Zocor] 20 mg PO HS 04/18/22 09/26/22 Previous Rx's Medication Instructions Recorded Apixaban [Eliquis] 5 mg PO BID 30 Days #0 tab 07/30/22 Metoprolol Succinate (ER) [Toprol 75 mg PO BID #60 tab 09/22/22 XL] Allergies Allergy/AdvReac Type Severity Reaction Status Date / Time No Known Allergies Allergy Verified 09/26/22 20:03 Review of Systems ROS Other: All systems not noted in ROS Statement are negative. <Ericka Moy - Last Filed: 09/26/22 17:27> ROS Other: All systems not noted in ROS Statement are negative. <Roni Sapp - Last Filed: 09/26/22 20:32> ROS Statement: Those systems with pertinent positive or pertinent negative responses have been documented in the HPI. Past Medical History Past Medical History: Atrial Fibrillation Additional Past Medical History / Comment(s): atrial fib, neck pain, closed head injury History of Any Multi-Drug Resistant Organisms: None Reported Past Surgical History: Cardiac Ablation, Orthopedic Surgery Additional Past Surgical History / Comment(s): cardiac ablation x3 Past Anesthesia/Blood Transfusion Reactions: No Reported Reaction Past Psychological History: No Psychological Hx Reported Smoking Status: Never smoker Past Alcohol Use History: None Reported Past Drug Use History: None Reported <Ericka Moy - Last Filed: 09/26/22 17:27> General Exam <CelisavannahEricka helton - Last Filed: 09/26/22 17:27> <Roni Sapp - Last Filed: 09/26/22 20:32> - General Exam Comments Initial Comments: Visual Physical Exam Vital signs reviewed General: Well-appearing, nontoxic, no acute distress. Head: Normocephalic, atraumatic Eyes: PERRLA, EOMI ENT: Airway patent Chest: Nonlabored breathing Skin: No visual rash, normal skin tone Neuro: Alert and oriented 3 Musculoskeletal: No gross abnormalities (Mary AnneEricka helton) GENERAL: Patient is well-developed and well-nourished. Patient is nontoxic and well- hydrated and is in mild distress. ENT: Neck is soft and supple. No significant lymphadenopathy is noted. Oropharynx is clear. Moist mucous membranes. Neck has full range of motion without eliciting any pain. EYES: The sclera were anicteric and conjunctiva were pink and moist. Extraocular movements were intact and pupils were equal round and reactive to light. Eyelids were unremarkable. PULMONARY: Unlabored respirations. Good breath sounds bilaterally. No audible rales rhonchi or wheezing was noted. CARDIOVASCULAR: Patient has irregular heartbeat at a rate of 160 beats a minute ABDOMEN: Soft and nontender with normal bowel sounds. SKIN: Skin is clear with no lesions or rashes and otherwise unremarkable. NEUROLOGIC: Patient is alert and oriented x3. Cranial nerves II through XII are grossly intact. Motor and sensory are also intact. Normal speech, volume and content. Symmetrical smile. MUSCULOSKELETAL: Normal extremities with adequate strength and full range of motion. No lower extremity swelling or edema. No calf tenderness. LYMPHATICS: No significant lymphadenopathy is noted PSYCHIATRIC: Normal psychiatric evaluation. (Roni Sapp) Course Vital Signs 09/26/22 09/26/22 09/26/22 17:25 18:00 18:31 Temperature 98 F Pulse Rate 76 176 H Respiratory 26 H 18 Rate Blood Pressure 117/76 138/90 105/91 O2 Sat by Pulse 998 H 97 Oximetry 09/26/22 09/26/22 19:00 19:47 Temperature Pulse Rate 133 H 137 H Respiratory 16 20 Rate Blood Pressure 105/91 108/85 O2 Sat by Pulse 97 97 Oximetry Medical Decision Making - Lab Data Result diagrams: 09/26/22 17:28 09/26/22 17:51 <Roni Sapp - Last Filed: 09/26/22 20:32> - Medical Decision Making EKG was interpreted by myself shows atrial fibrillation with rapid ventricular response at 159 bpm QRS is 92 QT interval is 281 QTC is 370. Was pt. sent in by a medical professional or institution (, PA, FOOD CART ATTENDANT, urgent care, hospital, or longterm...) When possible be specific @ -No Did you speak to anyone other than the patient for history (EMS, parent, family, police, friend...)? What history was obtained from this source @ -No Did you review nursing and triage notes (agree or disagree)? Why? @ -I reviewed and agree with nursing and triage notes Were old charts reviewed (outside hosp., previous admission, EMS record, old EKG, old radiological studies, urgent care reports/EKG's, longterm records)? Report findings @ -I reviewed old charts no lab work on this patient Differential Diagnosis (chest pain, altered mental status, abdominal pain women, abdominal pain men, vaginal bleeding, weakness, fever, dyspnea, syncope, headache, dizziness, GI bleed, back pain, seizure, CVA, palpatations, mental hea lth, musculoskeletal)? @ -Differential Palpitations Ventricular arrhythmias, atrial arrhythmias, myocardial infarction, anemia, thyrotoxicosis, electrolyte imbalance, hypokalemia, pulmonary embolism, pulmonary disease, drugs, alcohol, anxiety, stress.... This is not meant to be an all-inclusive list. EKG interpreted by me (3pts min.). @ -As above X-rays interpreted by me (1pt min.). @ -Chest x-ray shows no acute abnormality CT interpreted by me (1pt min.). @ -None done U/S interpreted by me (1pt. min.). @ -None done What testing was considered but not performed or refused? (CT, X-rays, U/S, labs)? Why? @ -None What meds were considered but not given or refused? Why? @ -None Did you discuss the management of the patient with other professionals (professionals i.e. , PA, FOOD CART ATTENDANT, lab, RT, psych nurse, social worker masters, data integrity analyst, t eacher, police patrol officer, hospice case manager)? Give summary @ -[place] with [facility] hospitalist agreed to admit the patient admitted the patient wrote admitting orders Was smoking cessation discussed mins.? @ -No Was critical care preformed (if so, how long)? @ -35 minutes Were there social determinants of health that impacted care today? How? (Homelessness, low income, unemployed, alcoholism, drug addiction, transportation, low edu. Level, literacy, decrease access to med. care, residential, rehab)? @ -No Was there de-escalation of care discussed even if they declined (Discuss DNR or withdrawal of care, Hospice)? DNR status @ -No What co-morbidities impacted this encounter? (DM, HTN, Smoking, COPD, CAD, Cance r, CVA, ARF, Chemo, Hep., AIDS, mental health diagnosis, sleep apnea, morbid obesity)? @ -None Was patient admitted / discharged? Hospital course, mention meds given and route, prescriptions, significant lab abnormalities, going to OR and other pertinent info. @ -Patient came in at a heart rate anywhere between 1 5170 beats a minute was atrial fibrillation. I started the patient with a Cardizem bolus and then a Cardizem drip. Patient's heart rate did drop down to the 130s and he stated he was feeling better. Patient was very eliquis no blood thinners are needed. I spoke with [facility] hospitalist and they agreed to admit the patient admitted the patient and I consult cardiology Undiagnosed new problem with uncertain prognosis? @ -No Drug Therapy requiring intensive monitoring for toxicity (Heparin, Nitro, Insulin, Cardizem)? @ -No Were any procedures done? @ -No Diagnosis/symptom? @ -A. fib with rapid ventricular response Acute, or Chronic, or Acute on Chronic? @ -Acute on chronic Uncomplicated (without systemic symptoms) or Complicated (systemic symptoms)? @ -Complicated Side effects of treatment? @ -No Exacerbation, Progression, or Severe Exacerbation? @ -No Poses a threat to life or bodily function? How? (Chest pain, [place], [place], pneumonia, PE, COPD, DKA, ARF, appy, cholecystitis, CVA, Diverticulitis, Homicidal, Suicidal, threat to staff... and all critical care pts) @ -Yes this could lead to hypoperfusion and and organ dysfunction (Roni Sapp) - Lab Data Lab Results 09/26/22 09/26/22 09/26/22 Range/Units 17:28 17:51 17:51 WBC 9.0 (3.8-10.6) k/uL RBC 4.75 (4.30-5.90) m/uL Hgb 15.8 (13.0-17.5) gm/dL Hct 44.7 (39.0-53.0) % MCV 94.2 (80.0-100.0) fL MCH 33.3 (25.0-35.0) pg MCHC 35.3 (31.0-37.0) g/dL RDW 12.9 (11.5-15.5) % Plt Count 244 (150-450) k/uL MPV 7.6 Neutrophils % 55 % Lymphocytes % 34 % Monocytes % 5 % Eosinophils % 4 % Basophils % 1 % Neutrophils # 4.9 (1.3-7.7) k/uL Lymphocytes # 3.1 (1.0-4.8) k/uL Monocytes # 0.5 (0-1.0) k/uL Eosinophils # 0.4 (0-0.7) k/uL Basophils # 0.0 (0-0.2) k/uL PT 9.8 (9.0-12.0) sec INR 0.9 (<1.2) APTT 23.5 (22.0-30.0) sec Sodium 135 L (137-145) mmol/L Potassium 3.9 (3.5-5.1) mmol/L Chloride 106 (98-107) mmol/L Carbon Dioxide 18 L (22-30) mmol/L Anion Gap 11 mmol/L BUN 17 (9-20) mg/dL Creatinine 1.03 (0.66-1.25) mg/dL Est GFR (CKD-EPI)AfAm 88 (>60 ml/min/1.73 sqM) Est GFR (CKD-EPI)NonAf 76 (>60 ml/min/1.73 sqM) Glucose 137 H (74-99) mg/dL Calcium 9.7 (8.4-10.2) mg/dL Magnesium 2.1 (1.6-2.3) mg/dL Total Bilirubin 0.6 (0.2-1.3) mg/dL AST 33 (17-59) U/L ALT 27 (4-49) U/L Alkaline Phosphatase 76 (38-126) U/L Troponin I (0.000-0.034) ng/mL Total Protein 7.1 (6.3-8.2) g/dL Albumin 4.2 (3.5-5.0) g/dL 09/26/22 Range/Units 17:51 WBC (3.8-10.6) k/uL RBC (4.30-5.90) m/uL Hgb (13.0-17.5) gm/dL Hct (39.0-53.0) % MCV (80.0-100.0) fL MCH (25.0-35.0) pg MCHC (31.0-37.0) g/dL RDW (11.5-15.5) % Plt Count (150-450) k/uL MPV Neutrophils % % Lymphocytes % % Monocytes % % Eosinophils % % Basophils % % Neutrophils # (1.3-7.7) k/uL Lymphocytes # (1.0-4.8) k/uL Monocytes # (0-1.0) k/uL Eosinophils # (0-0.7) k/uL Basophils # (0-0.2) k/uL PT (9.0-12.0) sec INR (<1.2) APTT (22.0-30.0) sec Sodium (137-145) mmol/L Potassium (3.5-5.1) mmol/L Chloride (98-107) mmol/L Carbon Dioxide (22-30) mmol/L Anion Gap mmol/L BUN (9-20) mg/dL Creatinine (0.66-1.25) mg/dL Est GFR (CKD-EPI)AfAm (>60 ml/min/1.73 sqM) Est GFR (CKD-EPI)NonAf (>60 ml/min/1.73 sqM) Glucose (74-99) mg/dL Calcium (8.4-10.2) mg/dL Magnesium (1.6-2.3) mg/dL Total Bilirubin (0.2-1.3) mg/dL AST (17-59) U/L ALT (4-49) U/L Alkaline Phosphatase (38-126) U/L Troponin I 0.033 (0.000-0.034) ng/mL Total Protein (6.3-8.2) g/dL Albumin (3.5-5.0) g/dL Critical Care Time Critical Care Time: Yes Total Critical Care Time: 35 <Roni Sapp - Last Filed: 09/26/22 20:32> Disposition <Ericka Moy - Last Filed: 09/26/22 17:27> Time of Disposition: 20:31 <Roni Sapp - Last Filed: 09/26/22 20:32> Clinical Impression: Atrial fibrillation with RVR Disposition: ADMITTED IP TO THIS HOSP Referrals: None,Stated [Primary Care Provider] - 1-2 days
[2022-09-26] MEDS ORDERED: DILTIAZEM DRIP BOLUS FROM BAG 1 MG SOLN IV ONE (17:55)
[2022-09-26 18:00] LABS: Basophils % (A) 1 %; Eosinophils # (A) 0.4 k/uL (0-0.7); Eosinophils % (A) 4 %; HCT 44.7 % (39.0-53.0); HGB 15.8 gm/dL (13.0-17.5); Lymphocytes # (A) 3.1 k/uL (1.0-4.8); Lymphocytes % (A) 34 %; MCH 33.3 pg (25.0-35.0); MCHC 35.3 g/dL (31.0-37.0); MCV 94.2 fL (80.0-100.0); Mean Platelet Volume 7.6; Monocytes # (A) 0.5 k/uL (0-1.0); Monocytes % (A) 5 %; Neutrophils # (A) 4.9 k/uL (1.3-7.7); Neutrophils % (A) 55 %; Platelet Count 244 k/uL (150-450); RBC 4.75 m/uL (4.30-5.90); RDW 12.9 % (11.5-15.5)
[2022-09-26] MEDS ORDERED: DILTIAZEM 125 MG in SODIUM CHLORIDE 0.9% 100 ML IV SCH (18:00)
[2022-09-26 18:09] LABS: INR 0.9 (<1.2); Partial Thromboplastin Time 23.5 sec (22.0-30.0); Prothrombin Time 9.8 sec (9.0-12.0)
[2022-09-26 18:16] LABS: ALT 27 U/L (4-49); AST 33 U/L (17-59); African American GFR (CKD) 88 (>60 ml/min/1.73 sqM); Albumin 4.2 g/dL (3.5-5.0); Alkaline Phosphatase 76 U/L (38-126); Anion Gap 11 mmol/L; Blood Urea Nitrogen 17 mg/dL (9-20); Calcium 9.7 mg/dL (8.4-10.2); Carbon Dioxide 18 mmol/L (22-30); Chloride 106 mmol/L (98-107); Glucose 137 mg/dL (74-99); Magnesium 2.1 mg/dL (1.6-2.3); Non-African American GFR(CKD) 76 (>60 ml/min/1.73 sqM); Potassium 3.9 mmol/L (3.5-5.1); Sodium 135 mmol/L (137-145); Total Bilirubin 0.6 mg/dL (0.2-1.3); Total Protein 7.1 g/dL (6.3-8.2)
--- NOTE | 2022-09-26 18:40 | XR ---
EXAMINATION TYPE: XR chest 2V DATE OF EXAM: 09/26/2022 6:36 PM COMPARISON: Chest radiographs from 09/21/2022 TECHNIQUE: XR chest 2V Frontal and lateral views of the chest. CLINICAL INDICATION:Male, 67 years old with history of chest pain; FINDINGS: Lungs/Pleura: Low lung volumes are present. There is no evidence of pleural effusion, focal consolida tion, or pneumothorax. Pulmonary vascularity: Unremarkable. Heart/mediastinum: Cardiomediastinal silhouette is prominent in size. Musculoskeletal: No acute osseous pathology. IMPRESSION: Low lung volumes with a generalized hazy appearance which could represent atelectasis versus pulmonar y edema correlate with serum BNP.
[2022-09-26] MEDS ORDERED: NITROGLYCERIN SL TABS 0.4 MG TAB SUBLINGUAL PRN (20:32)
[2022-09-26] MEDS ORDERED: SODIUM CHLORIDE 0.9% 1,000 ML IV ONE (20:35)
[2022-09-27] MEDS ORDERED: ASPIRIN 325 MG TAB PO SCH (09:00)
[2022-09-27 10:14] LABS: Chol/HDL Ratio 5.16 Ratio; LDL Cholesterol,Calculated 109.2 mg/dL (0.0-131.0)
[2022-09-27] MEDS ORDERED: HEPARIN SODIUM 1,000 UN/ML (10ML VL) IV ONE (10:44)
[2022-09-27] MEDS ORDERED: HEPARIN SODIUM 1,000 UN/ML (10ML VL) IV PRN (10:44)
[2022-09-27] MEDS ORDERED: HEPARIN SOD,PORK IN 0.45% NACL 25,000 UNIT in 0.45% NACL 1 250ML.BAG IV SCH (10:45)
[2022-09-27] MEDS ORDERED: APIXABAN 5 MG TAB PO SCH (10:45)
[2022-09-27 11:53] LABS: Basophils % (A) 1 %; Eosinophils # (A) 0.3 k/uL (0-0.7); Eosinophils % (A) 3 %; HCT 48.5 % (39.0-53.0); HGB 16.6 gm/dL (13.0-17.5); Lymphocytes # (A) 2.7 k/uL (1.0-4.8); Lymphocytes % (A) 33 %; MCH 33.3 pg (25.0-35.0); MCHC 34.3 g/dL (31.0-37.0); MCV 97.1 fL (80.0-100.0); Mean Platelet Volume 8.1; Monocytes # (A) 0.4 k/uL (0-1.0); Monocytes % (A) 4 %; Neutrophils # (A) 4.7 k/uL (1.3-7.7); Neutrophils % (A) 57 %; Platelet Count 247 k/uL (150-450); RDW 13.4 % (11.5-15.5); WBC 8.2 k/uL (3.8-10.6)
[2022-09-27 12:28] LABS: INR 1.1 (<1.2); Partial Thromboplastin Time 75.5 sec (22.0-30.0); Prothrombin Time 11.1 sec (9.0-12.0)
--- NOTE | 2022-09-27 15:40 | P.CRDCN ---
History of Present Illness Consult date: 09/27/22 Consult reason: atrial fibrillation (With RVR) History of present illness: History of present illness: This is a 67-year-old male patient of Dr. García with past medical history of paroxysmal atrial fibrillation with previous ablation 3, pericarditis post- ablation and pericardial effusion, hyperlipidemia. Patient had a recent hospitalization this month for palpitations and paroxysmal atrial fibrillation presenting with RVR and metoprolol was increased and patient was to follow-up with his primary dietetic intern to discuss options such as amiodarone therapy, pacemaker implantation with increased beta blockers and AV node ablation We have been asked to evaluate the patient for A. fib with RVR. Patient presented to the emergency center due to palpitations. Patient states that he had an appointment with his EP physician today but of course was unable to make it. He was recently treated for a pericarditis with colchicine and finished that which did not seem to help his symptoms. Patient has failed flecainide in the past. Patient states that each episode that he's had since his last ablation of atrial fibrillation RVR has been more severe with more severe midsternal chest pain and increased shortness of breath and difficulty breathing. EKG atrial fibrillation at 159 bpm, #2 sinus bradycardia 50 bpm Chest x-ray: Low lung volumes with generalized hazy appearance which could represent atelectasis versus pulmonary edema. CBC unremarkable. INR 0.9. Troponin 0.033, 0.308 and 0.584. Sodium 135, potassium 3.9, creatinine 1.03. Blood sugar 137. Liver function tests are normal. Magnesium 2.1. Home cardiac medications: Eliquis 5 mg twice daily, Toprol-XL 75 mg twice daily, Zocor 20 mg at bedtime. Echocardiogram 07/28/2022 revealed normal LV size and systolic function. Limited echo Review Of Systems: At the time of my evaluation: Constitutional: No fever, no chills. No weakness, fatigue or lethargy. EENT: No headache. No dizziness. Lungs: No shortness of breath, cough, no sputum production. No wheezing. Cardiovascular: No chest pain, no lower extremity edema. No palpitations. No paroxysmal nocturnal dyspnea. No orthopnea. No lightheadedness or dizziness. No syncopal episodes. Abdominal: No abdominal pain. No nausea, vomiting. No diarrhea. No constipation. No bloody or tarry stools. Genitourinary: No dysuria.. No urinary retention. Musculoskeletal: No myalgias. No muscle weakness, no frequent falls. No back pain. No neck pain. Integumentary: No wounds. No rash. No unusual bruising. Neurologic: No aphasia. No facial droop. No change in mentation. No head injury. No headache. Physical examination: Gen: This is a 67-year-old male appears to be comfortable VS: reviewed blood pressure 128/86, heart rate 57, pulse ox 90% on room air, afebrile. HEENT: Head is atraumatic, normocephalic. Pupils equal, round. Sclerae is anicteric. NECK: Supple. No JVD. . LUNGS: Clear to auscultation. No wheezes or rhonchi. No intercostal retractions. HEART: Regular rate and rhythm. No murmur. ABDOMEN: Soft No tenderness. EXTREMITIES: No pedal edema. No calf tenderness. NEUROLOGICAL: Patient is awake, alert and oriented x3. Assessment: Paroxysmal atrial fibrillation, presenting with A. fib RVR, currently in sinus rhythm Hyperlipidemia Plan: Discontinue heparin drip, discontinue aspirin Resume eliquis 5 mg twice daily Continue Toprol-XL 75 mg twice daily Monitor patient overnight and plan for discharge home tomorrow. Obtain limited 2-D echocardiogram Further recommendations to follow based upon clinical course. Patient will follow-up with his primary dietetic intern in EP dietetic intern at the time of discharge. Thank you kindly for this consultation. Nurse practitioner note has been reviewed, I agree with documented findings and plan of care. Patient was seen and examined. Past Medical History Past Medical History: Atrial Fibrillation Additional Past Medical History / Comment(s): atrial fib, neck pain, closed head injury History of Any Multi-Drug Resistant Organisms: None Reported Past Surgical History: Cardiac Ablation, Orthopedic Surgery Additional Past Surgical History / Comment(s): cardiac ablation x3 Past Anesthesia/Blood Transfusion Reactions: No Reported Reaction Past Psychological History: No Psychological Hx Reported Smoking Status: Never smoker Past Alcohol Use History: None Reported Past Drug Use History: None Reported Medications and Allergies Home Medications Medication Instructions Recorded Confirmed Type Simvastatin [Zocor] 20 mg PO HS 04/18/22 09/26/22 History Apixaban [Eliquis] 5 mg PO BID 30 Days #0 tab 07/30/22 09/26/22 Rx Metoprolol Succinate (ER) [Toprol 75 mg PO BID #60 tab 09/22/22 09/26/22 Rx XL] Allergies Allergy/AdvReac Type Severity Reaction Status Date / Time No Known Allergies Allergy Verified 09/26/22 20:03 Physical Exam Vitals: Vital Signs Temp Pulse Resp BP Pulse Ox 09/27/22 09:12 57 L 18 128/86 98 09/27/22 08:09 55 L 17 111/80 97 09/27/22 07:28 98.2 F 51 L 16 119/77 95 09/27/22 05:15 51 L 19 109/68 97 09/27/22 04:43 48 L 17 112/80 97 09/27/22 03:38 55 L 19 103/52 96 09/27/22 02:04 49 L 17 100/45 98 09/27/22 01:14 51 L 19 107/76 95 09/27/22 00:09 56 L 19 97/64 96 09/26/22 23:03 59 L 19 103/79 94 L 09/26/22 19:47 137 H 20 108/85 97 09/26/22 19:00 133 H 16 105/91 97 09/26/22 18:31 105/91 09/26/22 18:00 176 H 18 138/90 97 09/26/22 17:25 98 F 76 26 H 117/76 998 H Intake and Output 09/26/22 09/27/22 09/27/22 22:59 06:59 14:59 Other: Weight 92.986 kg Results 09/27/22 11:16 09/26/22 17:51 Cardiac Enzymes 09/26/22 09/26/22 09/26/22 Range/Units 17:51 17:51 22:15 AST 33 (17-59) U/L Troponin I 0.033 0.308 H* (0.000-0.034) ng/mL 09/27/22 Range/Units 00:42 AST (17-59) U/L Troponin I 0.584 H* (0.000-0.034) ng/mL Coagulation 09/26/22 Range/Units 17:51 PT 9.8 (9.0-12.0) sec APTT 23.5 (22.0-30.0) sec CBC 09/26/22 Range/Units 17:28 WBC 9.0 (3.8-10.6) k/uL RBC 4.75 (4.30-5.90) m/uL Hgb 15.8 (13.0-17.5) gm/dL Hct 44.7 (39.0-53.0) % Plt Count 244 (150-450) k/uL Comprehensive Metabolic Panel 09/26/22 Range/Units 17:51 Sodium 135 L (137-145) mmol/L Potassium 3.9 (3.5-5.1) mmol/L Chloride 106 (98-107) mmol/L Carbon Dioxide 18 L (22-30) mmol/L BUN 17 (9-20) mg/dL Creatinine 1.03 (0.66-1.25) mg/dL Glucose 137 H (74-99) mg/dL Calcium 9.7 (8.4-10.2) mg/dL AST 33 (17-59) U/L ALT 27 (4-49) U/L Alkaline Phosphatase 76 (38-126) U/L Total Protein 7.1 (6.3-8.2) g/dL Albumin 4.2 (3.5-5.0) g/dL Current Medications Generic Name Dose Route Start Last Admin Trade Name Curtisq PRN Reason Stop Dose Admin Aspirin 325 mg 09/27/22 09:00 09/27/22 08:07 Aspirin 325 Mg Tab PO 325 mg DAILY HUMPHREY Administration Diltiazem HCl 125 mg/ Sodium 125 mls @ 5 mls/hr 09/26/22 18:00 09/26/22 18:28 Chloride IV 5 mg/hr .Q24H HUMPHREY 5 mls/hr Administration 5 MG/HR Nitroglycerin 0.4 mg 09/26/22 20:32 Nitroglycerin Sl Tabs 0.4 Mg Tab SUBLINGUAL Q5M PRN Chest Pain Intake and Output 09/26/22 09/27/22 09/27/22 22:59 06:59 14:59 Other: Weight 92.986 kg 09/26/22 17:28 09/26/22 17:51
--- NOTE | 2022-09-27 16:07 | P.HPIM ---
History of Present Illness H&P Date: 09/27/22 This patient was endorsed to me by the ED physician at [address] Kuo spoke to Dr. Ayon for sign out. 67-year-old male with PMH of atrial fibrillation status post ablation, dyslipidemia presents to the ED for chest pain. Patient reports chest pain that has been ongoing since 3 PM yesterday. He described his pain as throbbing at times but sharp and stabbing other times. He receives his cardiology care at [facility]. Pain is nonradiating. Pain is worsened with deep inspiration. Pain was associated with shortness of breath, diaphoresis and nausea. This prompted him to come to the ED. His pain subsided by 10 PM. He currently reports mild soreness in his chest. He denies any headache, lower extremity edema, fever or chills, cough, palpitations, changes in urination or bowel h abits. No changes in appetite or weight. In the ED, he was noted to have heart rate in the 130-170s. He was initially tachypneic with a respiratory rate of 26. Vital signs were otherwise stable. CBC was unremarkable. INR was 0.9. CMP showed sodium 135, bicarbonate 18, glucose of 137. Troponin was 0.033, 0.308, 0.584, 0.463. Initial EKG showed atrial fibrillation with RVR ventricular rate of 159. He was given diltiazem 10 mg IV once and started on diltiazem drip. Rapid ventricular rate resolved. Subsequent EKG showed sinus bradycardia with T-wave inversions. Patient is admitted for chest pain, rule out acute coronary syndrome and atrial fibrillation with RVR. Pertinent positives and negatives as discussed in HPI, a complete review of systems was performed and all other systems are negative. General: non toxic, no distress, appears at stated age Derm: warm, dry Head: atraumatic, normocephalic, symmetric Eyes: EOMI, no lid lag, anicteric sclera Cardiovascular: S1S2 bradycardic, no murmur Lungs: CTA bilateral, no rhonchi, no rales , no accessory muscle use Ext: no gross muscle atrophy, no edema, no contractures Neuro: no focal neuro deficits Psych: Alert, oriented, appropriate affect Atrial fibrillation with RVR Troponin elevation with T-wave inversions Chest pain likely related to above Dyslipidemia Metabolic acidosis Mild hyponatremia Based on my assessment of this patient, this patient meets a high complexity level of care. Patient has an acute diagnosis of chest pain likely related to A. fib with RVR along with troponin elevation and T-wave inversion concerning for ACS that poses a threat to life or bodily function. Atrial fibrillation with RVR: Heart rate currently in the 50s. Initially started on Cardizem drip along with heparin drip. Case discussed with Dr. Grigsby, he does not believe this is ACS. Heparin drip and Cardizem discontinued. He is restarted on Metoprolol and Eliquis. Echocardiogram ordered. Troponin elevation with T-wave inversions: Similar to previous EKG from 09/21. Chest pain likely related to above: Troponins flat. Likely demand ischemia. Dyslipidemia: Continue simvastatin. Metabolic acidosis Mild hyponatremia Eliquis for DVT prophylaxis. FULL CODE. Decision maker: Sister I have reviewed the following clinical application consultant notes: Cardiology note. I have reviewed the results of the following tests: CBC, CMP, Lipid panel, Trop x 4. I have ordered the following tests: Trop. I have discussed the care of this patient with the following independent historian: I have independently interpreted the following test below: EKG as above. I have discussed the management of this patient with the following physician: Discussed with Dr. Grigsby as above. Past Medical History Past Medical History: Atrial Fibrillation Additional Past Medical History / Comment(s): atrial fib, neck pain, closed head injury History of Any Multi-Drug Resistant Organisms: None Reported Past Surgical History: Cardiac Ablation, Orthopedic Surgery Additional Past Surgical History / Comment(s): cardiac ablation x3 Past Anesthesia/Blood Transfusion Reactions: No Reported Reaction Past Psychological History: No Psychological Hx Reported Smoking Status: Never smoker Past Alcohol Use History: None Reported Past Drug Use History: None Reported Medications and Allergies Home Medications Medication Instructions Recorded Confirmed Type Simvastatin [Zocor] 20 mg PO HS 04/18/22 09/26/22 History Apixaban [Eliquis] 5 mg PO BID 30 Days #0 tab 07/30/22 09/26/22 Rx Metoprolol Succinate (ER) [Toprol 75 mg PO BID #60 tab 09/22/22 09/26/22 Rx XL] Allergies Allergy/AdvReac Type Severity Reaction Status Date / Time No Known Allergies Allergy Verified 09/26/22 20:03 Physical Exam Vitals: Vital Signs Temp Pulse Resp BP Pulse Ox 09/27/22 12:50 98.3 F 55 L 17 111/76 98 09/27/22 10:15 57 L 19 124/94 96 09/27/22 09:12 57 L 18 128/86 98 09/27/22 08:09 55 L 17 111/80 97 09/27/22 07:28 98.2 F 51 L 16 119/77 95 09/27/22 05:15 51 L 19 109/68 97 09/27/22 04:43 48 L 17 112/80 97 09/27/22 03:38 55 L 19 103/52 96 09/27/22 02:04 49 L 17 100/45 98 09/27/22 01:14 51 L 19 107/76 95 09/27/22 00:09 56 L 19 97/64 96 09/26/22 23:03 59 L 19 103/79 94 L 09/26/22 19:47 137 H 20 108/85 97 09/26/22 19:00 133 H 16 105/91 97 09/26/22 18:31 105/91 09/26/22 18:00 176 H 18 138/90 97 09/26/22 17:25 98 F 76 26 H 117/76 998 H Intake and Output 09/26/22 09/27/22 09/27/22 22:59 06:59 14:59 Other: Weight 92.986 kg Results CBC & Chem 7: 09/27/22 11:16 09/26/22 17:51 Labs: Abnormal Lab Results - Last 24 Hours (Table) 09/26/22 09/26/22 09/26/22 Range/Units 17:51 17:51 22:15 APTT (22.0-30.0) sec Sodium 135 L (137-145) mmol/L Carbon Dioxide 18 L (22-30) mmol/L Glucose 137 H (74-99) mg/dL Troponin I 0.308 H* (0.000-0.034) ng/mL Triglycerides 373.00 H (0.00-149.00) mg/dL Cholesterol 228.00 H (0.00-200.00) mg/dL VLDL Cholesterol, Calc 74.60 H (5.00-40.00) mg/dL 09/27/22 09/27/22 09/27/22 Range/Units 00:42 11:16 11:16 APTT 75.5 H (22.0-30.0) sec Sodium (137-145) mmol/L Carbon Dioxide (22-30) mmol/L Glucose (74-99) mg/dL Troponin I 0.584 H* 0.463 H* (0.000-0.034) ng/mL Triglycerides (0.00-149.00) mg/dL Cholesterol (0.00-200.00) mg/dL VLDL Cholesterol, Calc (5.00-40.00) mg/dL
[2022-09-27] MEDS: APIXABAN 5 MG TAB PO SCH (18:16)
[2022-09-27] MEDS ORDERED: ATORVASTATIN 10 MG TAB PO SCH (21:00)
[2022-09-27] MEDS: METOPROLOL SUCCINATE (ER) 25 MG TAB.ER.24H PO SCH (21:26)
[2022-09-28 00:15] VITALS: RESP 16
[2022-09-28 03:22] VITALS: TEMP 98
[2022-09-28] MEDS: APIXABAN 5 MG TAB PO SCH (08:11)
[2022-09-28] MEDS: METOPROLOL SUCCINATE (ER) 25 MG TAB.ER.24H PO SCH (08:12)
[2022-09-28 09:34] LABS: Basophils % (A) 0 %; Eosinophils # (A) 0.2 k/uL (0-0.7); Eosinophils % (A) 4 %; HCT 42.2 % (39.0-53.0); HGB 14.3 gm/dL (13.0-17.5); Lymphocytes # (A) 1.7 k/uL (1.0-4.8); Lymphocytes % (A) 29 %; MCH 32.6 pg (25.0-35.0); MCHC 33.8 g/dL (31.0-37.0); MCV 96.5 fL (80.0-100.0); Mean Platelet Volume 7.4; Monocytes # (A) 0.3 k/uL (0-1.0); Monocytes % (A) 5 %; Neutrophils # (A) 3.6 k/uL (1.3-7.7); Neutrophils % (A) 61 %; Platelet Count 197 k/uL (150-450); RBC 4.38 m/uL (4.30-5.90); RDW 12.9 % (11.5-15.5); WBC 5.9 k/uL (3.8-10.6)
[2022-09-28 09:51] LABS: INR 0.9 (<1.2); Prothrombin Time 10.1 sec (9.0-12.0)
--- NOTE | 2022-09-28 11:15 | CA ---
Transthoracic Echo Report Name: Osei Medina Age: 67 Gender: M : 1955 Exam Date: 09/28/2022 08:48 Exam Location: [facility] Ht (in): 70 Wt (lb): 205 Ordering Physician: Helga Pang Attending/Referring Phys: [id number], [employer] Carson Neff Procedure CPT: Indications: LVF Cardiac Hx: Technical Quality: Fair Contrast 1: Total Dose (mL): Contrast 2: Total Dose (mL): MEASUREMENTS (Male / Female) Normal Values 2D ECHO LV Diastolic Diameter PLAX 4.6 cm 4.2 - 5.9 / 3.9 - 5.3 cm LV Systolic Diameter PLAX 3.2 cm IVS Diastolic Thickness 1.2 cm 0.6 - 1.0 / 0.6 - 0.9 cm LVPW Diastolic Thickness 1.0 cm 0.6 - 1.0 / 0.6 - 0.9 cm LV Relative Wall Thickness 0.5 RV Internal Dim ED PLAX 3.0 cm LV Diastolic Volume MOD BP 43.0 cm??? 67 - 155 / 56 - 104 cm??? LV Systolic Volume MOD BP 21.7 cm??? 22 - 58 / 19 - 49 cm??? LV Ejection Fraction MOD BP 49.6 % >= 55 % LV Cardiac Index MOD BP 560.7 cm???/min???m??? LV Diastolic Volume MOD 4C 54.1 cm??? LV Systolic Volume MOD 4C 21.7 cm??? LV Ejection Fraction MOD 4C 59.8 % LV Cardiac Index MOD 4C 852.4 cm???/min???m??? LV Diastolic Length 4C 7.8 cm LV Systolic Length 4C 7.0 cm LV Diastolic Volume MOD 2C 32.8 cm??? LV Systolic Volume MOD 2C 21.7 cm??? LV Ejection Fraction MOD 2C 33.9 % LV Cardiac Index MOD 2C 293.2 cm???/min???m??? LV Diastolic Length 2C 7.4 cm LV Systolic Length 2C 7.0 cm FINDINGS Left Ventricle Mildly increased septal wall thickness. Left ventricular ejection fraction is estimated at 50-55 %. Right Ventricle Right Atrium Left Atrium Mitral Valve Aortic Valve Tricuspid Valve Pulmonic Valve Pericardium Aorta CONCLUSIONS This a limited 2-D echo done to assess LV function LV systolic function appears normal. Previewed by: Dr. Karri Truong MD (Electronically Signed) Final Date: 28 September 2022 11:14
[2022-09-28 11:53] VITALS: BP 125/78; PULSE 64
--- NOTE | 2022-09-28 12:04 | CDI ---
Documentation Clarification Form Date: From: Aleshia Cazares Phone: [phone] Admit Date: 09/26/2022 08:32:00 PM Patient Name: Osei Medina Visit Number: [id number] Discharge Date: ATTENTION: The Clinical Documentation Specialists (CDI) and [facility] Coding Staff appreciate your assistance in clarifying documentation. Please respond to the clarification below the line at the bottom and electronically sign. The CDI & [facility] Coding staff will review the response and follow-up if needed. Please note: Queries are made part of the Legal Health Record. If you have any questions, please contact the author of this message via ITS. Dr. Lino Moratayanam Your patient has increased troponin levels. Please clarify if there is an additional diagnosis and/or clinical significance related to this value. Patient history/risk factors: "67 year old male presents to the emergency department with a chief complaint of palpitations. Reports sudden onset at approximately 3PM. Admits to chest pain and shortness of breath." - Per General Medical Problem on 09/26 Clinical indicators: "Patient states that each episode that he's had since his last ablation of atrial fibrillation RVR has been more severe with more severe midsternal chest pain and increased shortness of breath and difficulty breathing." - Per Cardiology Note on 09/27 "Troponin elevation with T-wave inversions: Similar to previous EKG from 09/21. Chest pain likely related to above: Troponins flat. Likely demand ischemia." - Per Medical H&P on 09/27 Troponin 0.033, 0.308 and 0.584 Treatment: Per Cardiology Consult "Discontinue heparin drip, discontinue aspirin Resume eliquis 5 mg twice daily Continue Toprol-XL 75 mg twice daily Monitor patient overnight and plan for discharge home tomorrow. Obtain limited 2-D echocardiogram" Is there an additional diagnosis and/or clinical significance related to the above lab result/information: [ ] Type 2 PA due to (specify cause ____) [ ] Non-ischemic with acute myocardial injury [ ] No additional diagnosis/Not clinically significant [x ] demand ischemia due to AFib with RVR [ ] Unable to determine MTDD
--- NOTE | 2022-09-28 12:49 | P.DS ---
Providers Date of admission: 09/26/22 20:32 Expected date of discharge: 09/28/22 Attending physician: Jamie Kuo MD Consults: 09/26/22 20:32 Consult Physician Urgent Consulting Provider: [facility] Consult Reason/Comments: A. fib with rapid ventricular response Do you want consulting provider notified?: Yes Primary care physician: [facility] Course: This patient was endorsed to me by the ED physician at 8 AM on 09/27. Dr. Kuo spoke to Dr. Ayon for sign out. 67-year-old male with PMH of atrial fibrillation status post ablation, dyslipi demia presents to the ED for chest pain. Patient reports chest pain that has been ongoing since 3 PM yesterday. He described his pain as throbbing at times but sharp and stabbing other times. He receives his cardiology care at [facility]. Pain is nonradiating. Pain is worsened with deep inspiration. Pain was associated with shortness of breath, diaphoresis and nausea. This prompted him to come to the ED. His pain subsided by 10 PM. He currently reports mild soreness in his chest. He denies any headache, lower extremity edema, fever or chills, cough, palpitations, changes in urination or bowel habits. No changes in appetite or weight. In the ED, he was noted to have heart rate in the 130- 170s. He was initially tachypneic with a respiratory rate of 26. Vital signs were otherwise stable. CBC was unremarkable. INR was 0.9. CMP showed sodium 135, bicarbonate 18, glucose of 137. Troponin was 0.033, 0.308, 0.584, 0.463. Initial EKG showed atrial fibrillation with RVR ventricular rate of 159. He was given diltiazem 10 mg IV once and started on diltiazem drip. Rapid ventricular rate resolved. Subsequent EKG showed sinus bradycardia with T-wave inversions. Patient is admitted for chest pain, rule out acute coronary syndrome and atrial fibrillation with RVR. 09/28 Patient was seen and examined. No acute events overnight. He reports mild soreness in his chest with deep inspiration. Pain is alleviated with leaning forward. Case was discussed with Dr. Grigsby recommends outpatient follow-up with his events traffic controller. Echocardiogram was done which showed preserved EF. Patient be discharged home with advice to continue his home medication. Repeat troponin was 0.463. T-wave inversion seen on EKG appears similar as to his previous admission. Patient verbalized understanding of the plan. Pertinent studies include chest x-ray, echocardiogram. General: non toxic, no distress, appears at stated age Derm: warm, dry Head: atraumatic, normocephalic, symmetric Eyes: EOMI, no lid lag, anicteric sclera Cardiovascular: S1S2 bradycardic, no murmur Lungs: CTA bilateral, no rhonchi, no rales , no accessory muscle use Ext: no gross muscle atrophy, no edema, no contractures Neuro: no focal neuro deficits Psych: Alert, oriented, appropriate affect Discharge diagnosis: Atrial fibrillation with RVR Troponin elevation with T-wave inversions Chest pain likely related to pericarditis Dyslipidemia Metabolic acidosis Mild hyponatremia This complex discharge took 35 minutes to complete. Patient Condition at Discharge: Stable Plan - Discharge Summary Discharge Rx Participant: No New Discharge Prescriptions: Continue Simvastatin [Zocor] 20 mg PO HS Apixaban [Eliquis] 5 mg PO BID 30 Days #0 tab Metoprolol Succinate (ER) [Toprol XL] 75 mg PO BID #60 tab Discharge Medication List Simvastatin [Zocor] 20 mg PO HS 04/18/22 [History] Apixaban [Eliquis] 5 mg PO BID 30 Days #0 tab 07/30/22 [Rx] Metoprolol Succinate (ER) [Toprol XL] 75 mg PO BID #60 tab 09/22/22 [Rx] Follow up Appointment(s)/Referral(s): None,Stated [REFERRING] - 1-2 days Activity/Diet/Wound Care/Special Instructions: Diet: Cardiac Follow up with your PCP within 1-2 days and events traffic controller within 1 week of discharge. Discharge Disposition: HOME SELF-CARE
--- NOTE | 2022-09-28 13:44 | P.PN ---
Subjective Progress Note Date: 09/28/22 History of present illness: This is a 67-year-old male patient of Dr. García with past medical history of paroxysmal atrial fibrillation with previous ablation 3, pericarditis post- ablation and pericardial effusion, hyperlipidemia. Patient had a recent hospitalization this month for palpitations and paroxysmal atrial fibrillation presenting with RVR and metoprolol was increased and patient was to follow-up with his primary programming development project manager to discuss options such as amiodarone therapy, pacemaker implantation with increased beta blockers and AV node ablation We have been asked to evaluate the patient for A. fib with RVR. Patient presented to the emergency center due to palpitations. Patient states that he had an appointment with his EP physician today but of course was unable to make it. He was recently treated for a pericarditis with colchicine and finished that which did not seem to help his symptoms. Patient has failed flecainide in the past. Patient states that each episode that he's had since his last ablation of atrial fibrillation RVR has been more severe with more severe midsternal chest pain and increased shortness of breath and difficulty breathing. EKG atrial fibrillation at 159 bpm, #2 sinus bradycardia 50 bpm Chest x-ray: Low lung volumes with generalized hazy appearance which could represent atelectasis versus pulmonary edema. CBC unremarkable. INR 0.9. Troponin 0.033, 0.308 and 0.584. Sodium 135, potassium 3.9, creatinine 1.03. Blood sugar 137. Liver function tests are normal. Magnesium 2.1. Home cardiac medications: Eliquis 5 mg twice daily, Toprol-XL 75 mg twice daily, Zocor 20 mg at bedtime. Echocardiogram 07/28/2022 revealed normal LV size and systolic function. Limited echo 09/28 Patient is seen today on the cardiac stepdown unit. He remains in a sinus rhythm in the 50s, blood pressure 126/85, pulse ox 97% on room air. Limited echocardiogram reveals normal LV function. Discussed multiple options with the patient regarding control of atrial fibrillation. He needs follow-up with his EP physician in [place]. There are medication options such as amiodarone and flecainide. There is also the option of "pill in the pocket"which he is aware o f. The other option that has been discussed with the patient was permanent pacemaker and then rate controlled. Encouraged patient to follow-up with his programming development project manager and EP programming development project manager. He states that he has difficulty getting appointments with his physicians and is concerned about delay as he probably has to wait before he can get into the office and he may have another episode of A. fib with RVR. Patient again encouraged to contact his programming development project manager to discuss his concerns and make a plan to resolve. Physical examination: Gen: This is a 67-year-old male appears to be comfortable VS: reviewed blood pressure 128/86, heart rate 57, pulse ox 90% on room air, afebrile. HEENT: Head is atraumatic, normocephalic. Pupils equal, round. Sclerae is anicteric. NECK: Supple. No JVD. . LUNGS: Clear to auscultation. No wheezes or rhonchi. No intercostal retractions. HEART: Regular rate and rhythm. No murmur. ABDOMEN: Soft No tenderness. EXTREMITIES: No pedal edema. No calf tenderness. NEUROLOGICAL: Patient is awake, alert and oriented x3. Assessment: Paroxysmal atrial fibrillation, presenting with A. fib RVR, currently in sinus rhythm Hyperlipidemia Plan: Continue eliquis 5 mg twice daily Continue Toprol-XL 75 mg twice daily Patient is cleared from cardiology for discharge from a follow-up with his EP programming development project manager in the next week. Nurse practitioner note has been reviewed, I agree with documented findings and plan of care. Patient was seen and examined. Objective - Vital Signs Vital signs: Vital Signs Temp 98.0 F 09/28/22 03:22 Pulse 59 L 09/28/22 08:00 Resp 16 09/28/22 08:00 BP 126/85 09/28/22 08:00 Pulse Ox 97 09/28/22 08:00 FiO2 Intake & Output 09/27/22 09/28/22 09/28/22 18:59 06:59 18:59 Intake Total 110 240 118 Balance 110 240 118 Weight 92.986 kg Intake: Oral 110 240 118 Other: # Voids 1 - Labs CBC & Chem 7: 09/28/22 09:04 09/26/22 17:51 Labs: Abnormal Lab Results - Last 24 Hours (Table) 09/27/22 09/27/22 09/27/22 Range/Units 11:16 11:16 16:42 APTT 75.5 H 32.0 H (22.0-30.0) sec Troponin I 0.463 H* (0.000-0.034) ng/mL
== END 2022-09-28 13:52 | disposition home or self-care (01) | DRG 309 ==
LOC: EC 17:23 → 3SCARD 20:32
PROVIDERS: ADMIT Internal Medicine; ATTEND Internal Medicine
DX: I48.0 Paroxysmal atrial fibrillation (principal); E87.1 Hypo-osmolality and hyponatremia; I24.8 Other forms of acute ischemic heart disease; I31.9 Disease of pericardium, unspecified; E87.20 Acidosis, unspecified; R00.1 Bradycardia, unspecified; I25.10 Atherosclerotic heart disease of native coronary artery without angina pectoris; Z79.01 Long term (current) use of anticoagulants; Z79.899 Other long term (current) drug therapy; Z60.2 Problems related to living alone; E78.5 Hyperlipidemia, unspecified
CPT/HCPCS: 36415; 71046; 80053; 80061; 83735; 84484; 85025; 85610; 85730; 93005; 93308; 96365; 96366; 96367; 99291

== ENCOUNTER → 2023-10-03 | Outpatient (CLI) | payer MEDICARE ==
--- NOTE | 2023-10-25 06:53 | MR ---
Site ID synapse default Patient Osei Medina ID [id number] Age/Gender: 68Y, M Order # N/A Procedure MR cervical spine wo con Date 10/03/2023 7:58:59 PM EXAMINATION TYPE: MR cervical spine wo con DATE OF EXAM: 10/06/2023 COMPARISON: Cervical spine radiograph 11/14/2021 HISTORY: Neck pain, headaches, history of head injuries TECHNIQUE: Multiplanar, multisequence images of the cervical spine were acquired without contrast. FINDINGS: Alignment: The cervical vertebral bodies have preserved heights. Alignment is within normal limits gi rona patient positioning. Bones: Bone signal is within normal limits. Multilevel degenerative disc disease is noted. Cord: The spinal cord is unremarkable with regards to their signal intensity and morphology. Discs: Multilevel disc desiccation is present. C2-C3: No significant disc pathology. The spinal canal is patent. No neural foraminal stenosis. C3-C4: Eccentric left posterior osteophyte complex without significant central canal stenosis. Bilate ral facet arthropathy. Severe left and moderate right neural foraminal stenosis. C4-C5: Broad based disc bulge with mild effacement of anterior thecal sac. Bilateral facet arthropath y. Mild right and moderate left neural foraminal stenosis. C5-C6: No significant disc pathology. The spinal canal is patent. No neural foraminal stenosis. C6-C7: Eccentric right disc bulge with mild effacement of the anterior thecal sac. Mild left and sev ere right neuroforaminal stenosis. C7-T1: Broad-based disc bulge with minimal effacement of the anterior thecal sac. No neural foramina l stenosis. Other: None. 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 Most pro nounced at C4-C5 and C6-C7 with mild central canal stenosis. Varying degrees of neural foraminal sten osis. Most pronounced at C3-C4 with severe left and moderate right neural foraminal stenosis, moderat e left neural foraminal stenosis at C4-C5, and severe right neuroforaminal stenosis at C6-C7.
== END | disposition home or self-care (01) ==
LOC: RADMRIMAIN 21:15
PROVIDERS: ATTEND Orthopaedic Surgery Orthopaedic Surgery of the Spine
DX: M50.10 Cervical disc disorder with radiculopathy, unspecified cervical region (principal); M48.02 Spinal stenosis, cervical region
CPT/HCPCS: 72141